=== PATIENT | female | born 1985 | race Two or more races ===

== ENCOUNTER 2021-01-02 11:39 | Emergency (ER) | payer OTHER, SELFPAY ==
--- NOTE | 2021-01-02 | ECG_ITS ---
Test Reason : CHEST PAIN Blood Pressure : / mmHG Vent. Rate : 065 BPM Atrial Rate : 065 BPM P-R Int : 162 ms QRS Dur : 076 ms QT Int : 390 ms P-R-T Axes : 067 072 037 degrees QTc Int : 405 ms Normal sinus rhythm with sinus arrhythmia Normal ECG When compared with ECG of 11-DEC-2015 12:53, No significant change was found Referred By: Generic ED Physician Electronically Signed By:Jaden Colunga
--- NOTE | ~2021-01-02 | XR_ITS ---
EXAMINATION: XR CHEST CLINICAL INFORMATION: Chest pain. Left-sided tenderness. COMPARISON: Previous chest x-ray most recent June 2017 TECHNIQUE: 2 views of the chest were obtained. FINDINGS: The cardiac and mediastinal contours are stable. The lungs are clear. There is no pleural effusion or pneumothorax. Bony structures are unremarkable. XR/XR chest 2V IMPRESSION: Unremarkable examination.
[2021-01-02 12:42] VITALS: BP 139/91; PULSE 61; RESP 16; TEMP 36.8; O2SAT 100; BMI 24.5
--- NOTE | 2021-01-02 13:42 | ED.CHESTPAIN ---
HPI - Chest Pain General Chief Complaint: Chest Pain Stated Complaint: chest pain Time Seen by Provider: 01/02/21 13:11 Source: patient Mode of arrival: ambulatory Limitations: no limitations History of Present Illness HPI narrative: 35 y/o female with history of pneumonia presents to the ED with 3 days of left sided chest soreness and tenderness along with VALIENTE and generalized weakness. She denies fever, chills, cough, SOB at rest, nausea, vomiting. She has some mild headache and body aches. She states the pain is on her left chest and worse with movement and palpation. She denies any injury or heavy lifting. Sweeping the floors at home made the pain worse. She denies any sick contact. She has no personal or family history of blood clots. Mom and dad both had PA's in the 70's. MD complaint: chest discomfort Onset (ago): day(s) (3) Timing of current episode: constant Prior episodes: Yes Onset: during exertion Pain location: left chest Pain radiation: other (left lateral chest under axilla) Severity: moderate Quality: aching Relieving factors: rest Exacerbating factors: palpation and movement Associated symptoms: dyspnea Treatment prior to arrival: none Related Data Previous Rx's Medication Instructions Recorded lidocaine [Lidoderm] 1 patch TOPICAL DAILY #15 ea 01/02/21 naproxen 500 mg PO BID PRN #20 tab 01/02/21 Allergies Allergy/AdvReac Type Severity Reaction Status Date / Time acetaminophen [Percocet] Allergy Unknown anaphylaxis, Verified 01/02/21 12:41 rash oxycodone [Percocet] Allergy Unknown anaphylaxis, Verified 01/02/21 12:41 rash Penicillins [PENICILLINS] Allergy Unknown SOB HIVES Verified 01/02/21 12:41 Review of Systems Review of Systems: Constitutional: No Fever, No Chills ENT/Mouth: No sore throat, No Rhinorrhea, No Swallowing Difficulty Eyes: No Eye Pain, No Swelling, No Redness Cardiovascular: + Chest Pain, + SOB, No Orthopnea, No Edema Respiratory: No Cough, No Sputum, No Wheezing,+ dyspnea Gastrointestinal: No Nausea, No Vomiting, No Diarrhea, No abdominal Pain Genitourinary: No Dysuria, No Urinary Frequency, No Hematuria Musculoskeletal: No joint pain, + Myalgias Skin: No Skin Lesions, No rash Neuro: No Weakness, No Numbness, No Dizziness, + Headache PMFSH Past Medical History Medical History Asthma Surgical History (Updated 10/01/20 @ 09:40 by ROCCO Alcala) History of section History of tubal ligation Family History Family History (Updated 10/01/20 @ 09:41 by ROCCO Alcala) Father CVD (cardiovascular disease) Depression Myocardial infarction Mother Myocardial infarction Depression Hypertension CVD (cardiovascular disease) Maternal Grandmother Cancer Brother In good health Son In good health Daughter In good health Social History Social History Smoking Status: Current every day smoker Use of substances other than those prescribed or required for medical reasons: No Advance Directives: Yes Advance Directives Information Provided: No Advance Directives on File: No Physical Exam Vital Signs: Vital Signs: Last Vital Signs Temp 98.2 F 01/02/21 12:42 Pulse 61 01/02/21 12:42 Resp 16 01/02/21 12:42 BP 139/91 H 01/02/21 12:42 Pulse Ox 100 01/02/21 12:42 Body Mass Index 24.5 Appearance: Alert. Oriented X3. No acute distress. Eyes: Pupils equal, round and reactive to light. ENT: Pharynx normal. Neck: Normal inspection. Neck supple. CVS: Normal heart rate and rhythm. Pulses normal. Left sided chest wall tenderness extending to under left axilla. Respiratory: No respiratory distress. Breath sounds normal. Abdomen: Soft and nontender. +BS x4 Skin: Skin warm and dry. Normal skin color. Normal skin turgor. No rashes. Extremities: No lower extremity edema. Negative Leslie's sign. Neuro: Oriented X 3. Non-focal. Course Course Course Narrative: 35 y/o female with no PMH presents with left sided chest discomfort and soreness. Tender on exam with normal vital signs and normal lung sounds. She has nother nonspecific symptoms include generalized weakness & fatigue and headache. Will get CXR to r/o PNA, EKG and Viral PCR. No known exposure to COVID that she is aware of. She is PERC negative, doubt PE. Reevaluation(s) Reevaluation #1: CXR negative. EKG normal. Reevaluation #2: COVID positive. Went to go inform the patient and she eloped. Called patient at 4:56 to discuss results and management. All questions were answered. MDM - Chest Pain Differential Diagnosis Differential diagnosis: Likely fracture of rib, pneumothorax, atypical chest pain, costochondritis and chest pain Medical Records Data Attestation: I reviewed the patient's medical records. Lab Data Labs: Lab Results 01/02/21 Range/Units 14:40 Coronavirus (PCR) POSITIVE A (Negative) Influenza Type A (PCR) NEGATIVE (Negative) Influenza Type B (PCR) NEGATIVE (Negative) RSV RNA Qual (PCR) NEGATIVE (Negative) ECG Data ECG #1: Attestation: I personally reviewed and interpreted this ECG as follows: ECG interpretation date: 01/02/21 ECG interpretation time: 11:51 Interpretation: normal sinus rhythm with sinus arrythmia, HR 65 bpm, normal [place] interval, normal QTc, no ST segment elevations or depressions. Discharge Plan Discharge Clinical Impression: Costalchondritis Patient Disposition: Elopement Instructions: Costochondritis (ED) Additional Instructions: Your EKG today was normal. Your chest x-ray was normal. It is likely that your pain is muscular in nature. Rest. No heavy lifting. Use ice and/or heat to the area several times per day. Take the prescribed medications as needed for pain. Follow up with your doctor this week. If you have worsening pain or new or concerning symptoms come back to the ER for further evaluation. Prescriptions: New lidocaine [Lidoderm] 5 % adhesive patch,medicated 1 patch topical DAILY Qty: 15 RF: 0 naproxen 500 mg tablet 500 mg PO BID PRN (Reason: pain) Qty: 20 RF: 0
[2021-01-02 16:13] LABS: Influenza A PCR NEGATIVE (Negative); Influenza B PCR NEGATIVE (Negative); Resp Syncy Virus RNA Qual PCR NEGATIVE (Negative); SARS COV2 PCR INHOUSE POSITIVE (Negative)
--- NOTE | 2021-01-02 17:26 | PC.NURSE ---
SPOKE WITH PTS DAUGHTER AARON, STATES SOMEONE WILL STOP at pts home about 8 pm
--- NOTE | 2021-01-02 17:37 | PC.NURSE ---
approx. 1630 eliana luke entered tx rm, room was empty, pa able to reach pt at home and inform her she is +covid and needs to quarantine
== END 2021-01-02 17:38 | disposition left against medical advice (07) ==
PROVIDERS: Physician Assistant; Emergency Provider Emergency Medicine; PCP Internal Medicine
DX: M94.0 Chondrocostal junction syndrome [Tietze] (principal); R07.9 Chest pain, unspecified; Z20.822 Contact with and (suspected) exposure to COVID-19
CPT/HCPCS: 0241U; 36415; 71046; 93005; 99283

== ENCOUNTER 2021-04-17 10:10 | Emergency (ER) | payer OTHER, SELFPAY ==
--- NOTE | ~2021-04-17 | XR_ITS ---
EXAMINATION: XR CHEST CLINICAL INFORMATION: Chest pain COMPARISON: Previous chest x-ray December 2020 TECHNIQUE: Frontal view of the chest was obtained. FINDINGS: No significant abnormality is noted involving the heart, lungs, mediastinum, bony thorax or soft tissues. XR/XR chest 1V IMPRESSION: Unremarkable examination.
[2021-04-17 10:14] VITALS: BP 138/70; PULSE 94; O2SAT 100
[2021-04-17 10:22] VITALS: BP 117/70; PULSE 79; RESP 20; TEMP 37.2; O2SAT 97; BMI 27.3
--- NOTE | 2021-04-17 10:47 | ECG_ITS ---
Test Reason : CHEST PAIN Blood Pressure : / mmHG Vent. Rate : 071 BPM Atrial Rate : 071 BPM P-R Int : 138 ms QRS Dur : 082 ms QT Int : 382 ms P-R-T Axes : 064 075 031 degrees QTc Int : 415 ms Normal sinus rhythm with sinus arrhythmia Normal ECG When compared with ECG of 02-JAN-2021 11:52, No significant change was found Referred By: Vicki Mathis Electronically Signed By:Jaden Colunga
[2021-04-17] MEDS: Benzonatate 100 MG CAPSULE PO (10:56)
[2021-04-17] MEDS: hydrOXYzine HCL 25 MG TABLET PO (10:56)
[2021-04-17 11:00] VITALS: BP 117/73; PULSE 73; RESP 16; O2SAT 99
[2021-04-17] MEDS: Albuterol Sulfate (0.083%) 2.5 MG/3 ML VIAL.NEB 5 MG INHALE (11:09)
[2021-04-17 11:13] VITALS: PULSE 95; O2SAT 97
[2021-04-17 11:14] LABS: MANUAL DIFF FLAG NO
[2021-04-17 11:17] LABS: Basophils Percent Auto 0.3 % (0-2); Eosinophils Percent Auto 0.4 % (0-4); Hematocrit 39.5 % (37-47); Hemoglobin 13.5 g/dl (12.0-16.0); Imm Gran Abs Auto 0.03 X10*3/uL (0.00-0.03); Imm Gran Pct Auto 0.3 % (0.0-0.4); Lymphocytes Absolute Auto 1.1 X10*3/uL (1.2-4.9); Lymphocytes Percent Auto 11.4 % (20-40); Mean Corpuscular HGB Conc 34.2 g/dl (31.0-35.0); Mean Corpuscular Hemoglobin 31.2 pg (27.0-33.0); Mean Corpuscular Volume 91.2 fL (80-98); Mean Platelet Volume 9.3 fL (9.4-12.3); Monocytes Absolute Auto 0.5 X10*3/uL (0.1-1.2); Monocytes Percent Auto 5.2 % (2-11); Neutrophils Absolute Auto 8.1 X10*3/uL (2.0-8.3); Neutrophils Percent Auto 82.4 % (45-73); Platelet Count 303 X10*3/uL (160-400); Red Blood Count 4.33 X10*6/uL (4.20-5.50); White Blood Count 9.8 X10*3/uL (4.8-10.8)
[2021-04-17 11:38] LABS: COVID-19 Test Negative (Negative); IDNOW Serial# 9DD0AD1C
[2021-04-17 11:40] LABS: Anion Gap 15 (12-20); Blood Urea Nitrogen 8 mg/dL (9-16); Calcium 9.3 mg/dL (8.4-10.2); Carbon Dioxide 17 mmol/L (22-29); Chloride 109 mmol/L (96-108); Creatinine Clr Calc Pharmacy 101.2; Estimated Glomerular Filt Rate > 60; Glucose Random 90 mg/dL (60-115); Potassium 3.6 mmol/L (3.3-5.1); Sodium 137 mmol/L (135-145)
[2021-04-17 11:43] LABS: Troponin-I High Sensitivity < 3.5 ng/L (<3.5-17.0)
--- NOTE | 2021-04-17 11:49 | ED.SOB ---
HPI - SOB/Dyspnea General Chief Complaint: Dyspnea Stated Complaint: CHEST PAIN,DIFF BREATHING X2DAYS ?PNEUMONIA Time Seen by Provider: 04/17/21 10:41 Source: patient History of Present Illness HPI Narrative: 35-year-old female with a past medical history of asthma, tubal ligation, , presenting to the ED complaining of productive cough, SOB, chest tightness, chills x2 days. Denies fever, sore throat, ear pain, recent travel, LE edema, history blood clots, abdominal pain, nausea/vomiting, COVID-19 exposure MD elicited complaint: shortness of breath and cough Related Data Previous Rx's Medication Instructions Recorded lidocaine [Lidoderm] 1 patch TOPICAL DAILY #15 ea 01/02/21 naproxen 500 mg PO BID PRN #20 tab 01/02/21 albuterol sulfate 2 puff INHALATION Q4-6H PRN #6.7 g 04/17/21 benzonatate [Tessalon Perles] 100 mg PO TID PRN #14 cap 04/17/21 fluticasone propionate [Flonase 2 spray INTRANASAL DAILY #16 g 04/17/21 Allergy Relief] ondansetron HCl [Zofran] 4 mg PO Q8H PRN #10 tab 04/17/21 Allergies Allergy/AdvReac Type Severity Reaction Status Date / Time acetaminophen [Percocet] Allergy Unknown anaphylaxis, Verified 01/02/21 12:41 rash oxycodone [Percocet] Allergy Unknown anaphylaxis, Verified 01/02/21 12:41 rash Penicillins [PENICILLINS] Allergy Unknown SOB HIVES Verified 01/02/21 12:41 Review of Systems Review of Systems: Constitutional: No Fever, + Chills, No Fatigue, No Malaise ENT/Mouth: No Ear Pain, No Nasal Congestion, No sore throat, No Rhinorrhea Eyes: No Eye Pain, No Discharge, No Vision Changes Cardiovascular: + Chest Pain, + SOB, No Dyspnea on Exertion, No Edema Respiratory: + Cough, + Sputum, No Wheezing, No Dyspnea Gastrointestinal: No Nausea, No Vomiting, No Diarrhea, No Abdominal pain Genitourinary: No Dysuria, No Hematuria, No Flank Pain Musculoskeletal: No joint pain, No Myalgias, No Joint Swelling Skin: No Skin Lesions, No rash Neuro: No Weakness, No Headache Yes all other systems are reviewed and are negative PMFSH Past Medical History Attestation statement: The following information was validated with the patient. Medical History Asthma Surgical History (Updated 10/01/20 @ 09:40 by ROCCO Alcala) History of section History of tubal ligation Family History Family History (Updated 10/01/20 @ 09:41 by ROCCO Alcala) Father CVD (cardiovascular disease) Depression Myocardial infarction Mother Myocardial infarction Depression Hypertension CVD (cardiovascular disease) Maternal Grandmother Cancer Brother In good health Son In good health Daughter In good health Social History Social History Advance Directives: Yes Advance Directives Information Provided: No Advance Directives on File: No Patient : No Physical Exam Vital Signs: Vital Signs: Last Vital Signs Temp 98.9 F 04/17/21 10:22 Pulse 95 04/17/21 11:13 Resp 16 04/17/21 11:00 BP 117/73 04/17/21 11:00 Pulse Ox 99 04/17/21 11:00 Body Mass Index 27.3 Const: General: cooperative, healthy appearing and no acute distress Orientation/consciousness: patient oriented x3 Limitations: no limitations HENMT: Head: Yes normal to inspection Ears: hearing grossly normal bilaterally General nose exam: Normal external nose present Face and sinus: Yes normal facial exam Mouth: Normal oral and palatal mucosa present Throat: Yes posterior oropharynx normal, Yes tonsils normal and Yes uvula midline Eyes: General: appearance normal, both eyes and all related structures EOM: EOMs intact bilaterally Neck: Neck: Yes normal visual inspection Resp: Effort & Inspection: normal respiratory effort Auscultation: clear to auscultation bilaterally, no rales, no rhonchi and no wheezes Cardio: Rate: regular rate Heart sounds: S1 normal heart sound present and S2 normal heart sound present GI: Inspection: Yes normal to inspection Palpation (GI): Soft to palpation, nontender, no guarding and not rigid Skin: Rashes: no rashes Wounds: no wounds Neuro: General: patient oriented x3 Gait exam (Neuro): Normal gait present Extrem: General: Yes normal to inspection and Yes no pedal edema Course Course Course Narrative: -labs unremarkable, troponin negative -COVID-19 negative XR chest 1V IMPRESSION: Unremarkable examination. >> results discussed with patient including worrisome signs and symptoms and return precautions, she verbalized understanding feel safe for discharge home to follow-up with PCP MDM - SOB/Dyspnea MDM Narrative Medical decision making narrative: 35-year-old female with a past medical history of asthma, tubal ligation, , presenting to the ED complaining of productive cough, SOB, chest tightness, chills x2 days. On exam VSS, NAD/well-appearing, lungs CTA, no pedal edema/no calf tenderness. Concern for viral syndrome/COVID-19 vs pneumonia. Rule out ACS. Low concern for PE/CHF Plan: EKG, labs, CXR, COVID-19 testing, albuterol neb, reassess Medical Records Attestation: I reviewed the patient's medical records. Lab Data Attestation: I reviewed the patient's lab results. Result diagrams: 04/17/21 11:07 04/17/21 11:07 Labs: Lab Results 04/17/21 04/17/21 04/17/21 Range/Units 10:59 11:07 11:07 WBC 9.8 (4.8-10.8) X10*3/uL RBC 4.33 (4.20-5.50) X10*6/uL Hgb 13.5 (12.0-16.0) g/dl Hct 39.5 (37-47) % MCV 91.2 (80-98) fL MCH 31.2 (27.0-33.0) pg MCHC 34.2 (31.0-35.0) g/dl RDW 13.0 (11.0-16.0) % Plt Count 303 (160-400) X10*3/uL MPV 9.3 L (9.4-12.3) fL Immature Gran % (Auto) 0.3 (0.0-0.4) % Neut % (Auto) 82.4 H (45-73) % Lymph % (Auto) 11.4 L (20-40) % Cooper % (Auto) 5.2 (2-11) % Eos % (Auto) 0.4 (0-4) % Baso % (Auto) 0.3 (0-2) % Lymph # (Auto) 1.1 L (1.2-4.9) X10*3/uL Cooper # (Auto) 0.5 (0.1-1.2) X10*3/uL Eos # (Auto) 0.0 (0.0-0.4) X10*3/uL Baso # (Auto) 0.0 (0.0-0.2) X10*3/uL Abs Immat Gran (auto) 0.03 (0.00-0.03) X10*3/uL Absolute Neuts (auto) 8.1 (2.0-8.3) X10*3/uL Absolute Nucleated RBC 0.000 (0.0-0.012) X10*3/uL Nucleated RBC % (auto) 0.0 (0.0-0.2) /100WBC Sodium 137 (135-145) mmol/L Potassium 3.6 (3.3-5.1) mmol/L Chloride 109 H (96-108) mmol/L Carbon Dioxide 17 L (22-29) mmol/L Anion Gap 15 (12-20) BUN 8 L (9-16) mg/dL Creatinine 0.66 (0.5-1.4) mg/dL Estim Creat Clear Calc 101.2 Estimated GFR > 60 Random Glucose 90 (60-115) mg/dL Calcium 9.3 (8.4-10.2) mg/dL Troponin I High Sens (<3.5-17.0) ng/L COVID-19 (YADIRA) Negative (Negative) COVID-19 Clin Com See Note 04/17/21 Range/Units 11:07 WBC (4.8-10.8) X10*3/uL RBC (4.20-5.50) X10*6/uL Hgb (12.0-16.0) g/dl Hct (37-47) % MCV (80-98) fL MCH (27.0-33.0) pg MCHC (31.0-35.0) g/dl RDW (11.0-16.0) % Plt Count (160-400) X10*3/uL MPV (9.4-12.3) fL Immature Gran % (Auto) (0.0-0.4) % Neut % (Auto) (45-73) % Lymph % (Auto) (20-40) % Cooper % (Auto) (2-11) % Eos % (Auto) (0-4) % Baso % (Auto) (0-2) % Lymph # (Auto) (1.2-4.9) X10*3/uL Cooper # (Auto) (0.1-1.2) X10*3/uL Eos # (Auto) (0.0-0.4) X10*3/uL Baso # (Auto) (0.0-0.2) X10*3/uL Abs Immat Gran (auto) (0.00-0.03) X10*3/uL Absolute Neuts (auto) (2.0-8.3) X10*3/uL Absolute Nucleated RBC (0.0-0.012) X10*3/uL Nucleated RBC % (auto) (0.0-0.2) /100WBC Sodium (135-145) mmol/L Potassium (3.3-5.1) mmol/L Chloride (96-108) mmol/L Carbon Dioxide (22-29) mmol/L Anion Gap (12-20) BUN (9-16) mg/dL Creatinine (0.5-1.4) mg/dL Estim Creat Clear Calc Estimated GFR Random Glucose (60-115) mg/dL Calcium (8.4-10.2) mg/dL Troponin I High Sens < 3.5 (<3.5-17.0) ng/L COVID-19 (YADIRA) (Negative) COVID-19 Clin Com ECG Data Attestation: I personally reviewed and interpreted this ECG as follows: ECG interpretation date: 04/17/21 ECG interpretation time: 11:04 Interpretation: EKG normal sinus rhythm with sinus arrhythmia at rate of 71. No STEMI/nonischemic Discharge Plan Discharge Clinical Impression: Acute viral syndrome Patient Disposition: Home, Self-Care Instructions: Viral Syndrome (ED) Additional Instructions: Your blood work was reassuring today in the emergency department Her x-ray was unremarkable You tested negative for COVID-19 You need to rest, stay hydrated, drink plenty of fluids including Gatorade, Powerade, Pedialyte, and water Tessalon Perles for cough, take as needed Flonase Allergy Relief is a nasal decongestion Zofran as an antinausea medication, take as needed In addition use albuterol inhaler for shortness of breath/wheezing If her symptoms persist or worsen, become unbearable, you have fever unresolved medication or constant worsening shortness breath or chest pain please return to the ED Prescriptions: New ondansetron HCl [Zofran] 4 mg tablet 4 mg PO Q8H PRN (Reason: nausea and vomiting) Qty: 10 RF: 0 albuterol sulfate 90 mcg/actuation HFA aerosol inhaler 2 puff inhalation Q4-6H PRN (Reason: shortness of breath or wheezing) Qty: 6.7 RF: 0 benzonatate [Tessalon Perles] 100 mg capsule 100 mg PO TID PRN (Reason: cough) Qty: 14 RF: 0 fluticasone propionate [Flonase Allergy Relief] 50 mcg/actuation spray,suspension 2 spray intranasal DAILY Qty: 16 RF: 0 No Action lidocaine [Lidoderm] 5 % adhesive patch,medicated 1 patch topical DAILY Qty: 15 RF: 0 naproxen 500 mg tablet 500 mg PO BID PRN (Reason: pain) Qty: 20 RF: 0 Referrals: Alessio Hickman MD [Primary Care Provider] - 2 days
[2021-04-17] MEDS: guaiFENesin 100 MG/5 ML LIQUID PO (12:22)
== END 2021-04-17 12:37 | disposition home or self-care (01) ==
PROVIDERS: Physician Assistant; Emergency Provider Emergency Medicine; PCP Internal Medicine
DX: B34.9 Viral infection, unspecified (principal); R05 Cough; R06.00 Dyspnea, unspecified; Z20.822 Contact with and (suspected) exposure to COVID-19; Z79.899 Other long term (current) drug therapy
CPT/HCPCS: 36415; 71045; 80048; 84484; 85025; 87635; 93005; 94640; 99284

== ENCOUNTER 2021-09-02 15:26 | Emergency (ER) | payer OTHER, SELFPAY ==
[2021-09-02 16:21] VITALS: BP 158/97; PULSE 66; RESP 17; TEMP 36.7; O2SAT 100; BMI 26.4
--- NOTE | 2021-09-02 16:45 | ED.GENADULT ---
HPI - General Adult General Chief complaint: General Medical Stated complaint: Cyst on breast Time Seen by Provider: 09/02/21 16:35 Source: patient Mode of arrival: ambulatory Limitations: no limitations History of Present Illness HPI narrative: 35-year-old female Presents to the ER for evaluation of a small cyst-like lesion under her right breast that has been present for several weeks. She states it is getting bigger and is tender. It is right where her bra line is and it is irritating. She tried to drain it at home but nothing came out. She denies any redness or warmth over the area. She tried calling her doctor in going to an urgent care clinic earlier today but there she was unable to be seen. She denies any fevers or chills. No history of cysts or abscess in the past. MD complaint: Cyst under right breast Onset (ago): week(s) Location: chest Radiation: non-radiation Severity: mild Pain Consistency: intermittent Relieving factors: none Exacerbating factors: other ( palpation) Associated symptoms: denies other symptoms Treatments prior to arrival: none Related Data Previous Rx's Medication Instructions Recorded lidocaine 5 % topical patch 1 patch TOPICAL DAILY #15 ea 01/02/21 (Lidoderm) naproxen 500 mg tablet 500 mg PO BID PRN #20 tab 01/02/21 albuterol sulfate 90 mcg/actuation 2 puff INHALATION Q4-6H PRN #6.7 g 04/17/21 aerosol inhaler benzonatate 100 mg capsule 100 mg PO TID PRN #14 cap 04/17/21 (Tessalon Perles) fluticasone propionate 50 2 spray INTRANASAL DAILY #16 g 04/17/21 mcg/actuation nasal spray,suspension (Flonase Allergy Relief) ondansetron HCl 4 mg tablet 4 mg PO Q8H PRN #10 tab 04/17/21 (Zofran) Allergies Allergy/AdvReac Type Severity Reaction Status Date / Time acetaminophen [Percocet] Allergy Severe anaphylaxis, Verified 09/02/21 16:21 rash oxycodone [Percocet] Allergy Severe anaphylaxis, Verified 09/02/21 16:21 rash Penicillins [PENICILLINS] Allergy Intermediate SOB HIVES Verified 09/02/21 16:21 Review of Systems Review of Systems: Constitutional: No Fever, No Chills Cardiovascular: No Chest Pain, No SOB Gastrointestinal: No Nausea, No Vomiting Musculoskeletal: No joint pain, + Myalgias Skin: + Skin Lesions, No rash Neuro: No Weakness, No Numbness Psych: + Anxiety/Panic, No Depression Heme/Lymph: No Bruising, No Lymphadenopathy PMFSH Past Medical History Medical History Asthma Surgical History History of section History of tubal ligation Family History Family History (Updated 10/01/20 @ 09:41 by Leann Ledezma Christie) Father CVD (cardiovascular disease) Depression Myocardial infarction Mother Myocardial infarction Depression Hypertension CVD (cardiovascular disease) Maternal Grandmother Cancer Brother In good health Son In good health Daughter In good health Social History Social History Advance Directives: No Advance Directives Information Provided: Yes Patient : No Physical Exam Vital Signs: Vital Signs: Last Vital Signs Temp 98.1 F 09/02/21 16:21 Pulse 66 09/02/21 16:21 Resp 17 09/02/21 16:21 BP 158/97 H 09/02/21 16:21 Pulse Ox 100 09/02/21 16:21 Body Mass Index 26.4 Appearance: Alert. Oriented X3. No acute distress. HEENT: normal inspection CVS: Normal heart rate and rhythm. Pulses normal. Respiratory: No respiratory distress. Skin: Skin warm and dry. Normal skin color. Normal skin turgor. Under right breast is a small circular raised 1 cm soft lesion consistent with a simple cyst. There is no fluctuance or induration. No erythema or warmth. Extremities: normal inspection, normal range of motion x4 Neuro: Oriented X 3. No motor deficit. No sensory deficit. Course Course Course Narrative: 35-year-old female presenting to the ER with a small 1 cm cystic lesion beneath her right breast. At this time there is no urgent need for incision and drainage, this lesion most likely needs excision by supervisor evaporator. Patient is agreeable with holding off on intervention today and she will call Dermatology office tomorrow for evaluation. Patient stable for discharge home. Discharge Plan Discharge Clinical Impression: Cyst of skin Patient Disposition: Home, Self-Care Instructions: Cyst (ED) Additional Instructions: Recommend following up with Dermatology if you would like the cyst to be excised and removed. If you develop signs or symptoms of infection including redness, increased pain, or drainage of pus, call your doctor or come back to the ER for further evaluation. Prescriptions: No Action ondansetron HCl [Zofran] 4 mg tablet 4 mg PO Q8H PRN (Reason: nausea and vomiting) Qty: 10 RF: 0 albuterol sulfate 90 mcg/actuation HFA aerosol inhaler 2 puff inhalation Q4-6H PRN (Reason: shortness of breath or wheezing) Qty: 6.7 RF: 0 benzonatate [Tessalon Perles] 100 mg capsule 100 mg PO TID PRN (Reason: cough) Qty: 14 RF: 0 fluticasone propionate [Flonase Allergy Relief] 50 mcg/actuation spray,suspension 2 spray intranasal DAILY Qty: 16 RF: 0 lidocaine [Lidoderm] 5 % adhesive patch,medicated 1 patch topical DAILY Qty: 15 RF: 0 naproxen 500 mg tablet 500 mg PO BID PRN (Reason: pain) Qty: 20 RF: 0 Referrals: Jessica Coker PA-C [Physician Mirror Specialist] - 2 days (cyst under right breast, would like excision) Interventions: ED Discharge Assessment Last Done: 09/02/21 17:02
== END 2021-09-02 17:02 | disposition home or self-care (01) ==
PROVIDERS: Emergency Provider Emergency Medicine; PCP Internal Medicine
DX: N60.01 Solitary cyst of right breast (principal); Z79.899 Other long term (current) drug therapy
CPT/HCPCS: 99283

== ENCOUNTER 2021-09-28 19:01 | Emergency (ER) | payer OTHER, SELFPAY | END 2021-09-28 22:55 | disposition left against medical advice (07) | PROVIDERS: Emergency Provider Emergency Medicine; PCP Internal Medicine | DX: R68.89 Other general symptoms and signs (principal) ==

== ENCOUNTER → 2021-10-25 10:27 | Outpatient (BNVA) | payer OTHER, SELFPAY | PROVIDERS: PCP Internal Medicine; Referring Provider Internal Medicine; Visit Provider Surgery | DX: N60.01 Solitary cyst of right breast (principal) | CPT/HCPCS: 99202 ==

== ENCOUNTER 2021-11-19 10:52 | Outpatient (REF) | payer OTHER, SELFPAY ==
[2021-11-19 11:03] VITALS: BP 132/83; PULSE 68; RESP 16; TEMP 36.2; O2SAT 97
[2021-11-19 11:04] VITALS: BMI 25.4
--- NOTE | 2021-11-21 07:59 | P.OP_ITS ---
Operative Note Operative Note Date of Service: 11/19/21 Narrative: Preoperative diagnosis: Epidermal inclusion cyst right chest wall Postoperative diagnosis: Same Procedure: Excision of epidermal inclusion cyst right chest wall Surgeon: Noel Walker MD Mission Support Specialist: None Anesthesia: Local Indications for procedure: 36-year-old female with enlarging epidermal inclusion cyst below the right breast measuring approximately 2 cm in diameter Operative findings: 2 cm epidermal inclusion cyst right chest wall Specimen: Epidermal inclusion cyst right chest wall Estimated blood loss: 2 mL Complications: None Procedure details: Patient was brought to the minor surgery suite and placed in a supine position. The site of surgery was confirmed by the patient in the right chest wall below the right breast. After assuring informed consent the skin around the cyst was prepped with Betadine and draped with sterile drapes. Local anesthesia consisting of 1% lidocaine with epinephrine was infiltrated circumferentially around the lesion. An elliptical incision oriented transversely was then created and carried down through subcutaneous tissue and around the cyst wall. Sharp dissection was used to excise the lesion from the subcutaneous tissue. The lesion was passed off the table and sent to pathology for further examination. After assuring adequate hemostasis, the dermis was reapproximated using interrupted 3-0 Polysorb sutures. Skin was then closed using interrupted 3-0 nylon sutures. Sterile dressings consisting of 2 x 2 gauze and Tegaderm were then applied. The patient tolerated the procedure well. She was discharged to home in stable condition.
== END 2021-11-19 10:53 | disposition home or self-care (01) ==
LOC: HO.MS 10:52
PROVIDERS: PCP Internal Medicine; Visit Provider Surgery
PROC: (CPT 11402; principal; 2021-11-19 11:15)
DX: L72.0 Epidermal cyst (principal); J45.909 Unspecified asthma, uncomplicated; F17.210 Nicotine dependence, cigarettes, uncomplicated
CPT/HCPCS: 11402; 88304

== ENCOUNTER → 2021-11-26 11:29 | Outpatient (BNVA) | payer OTHER, SELFPAY | PROVIDERS: PCP Internal Medicine; Referring Provider Internal Medicine; Visit Provider Surgery | DX: L72.0 Epidermal cyst (principal); F17.210 Nicotine dependence, cigarettes, uncomplicated; Z48.02 Encounter for removal of sutures | CPT/HCPCS: 99212 ==

== ENCOUNTER 2022-01-17 10:28 | Emergency (ER) | payer OTHER, SELFPAY ==
--- NOTE | ~2022-01-17 | XR_ITS ---
EXAMINATION: CHEST 2 VIEWS CLINICAL INFORMATION: cough, chest pain . COMPARISON: 04/17/2021. TECHNIQUE: PA and lateral views of the chest obtained. FINDINGS: The lungs are well expanded. No focal infiltrate, effusion, edema, or pneumothorax. Cardiac and mediastinal silhouettes are within normal limits for technique. No acute bony abnormality seen XR/XR chest 2V IMPRESSION: No evidence of acute disease
[2022-01-17 11:08] VITALS: BP 108/81; PULSE 80; RESP 20; TEMP 37.2; O2SAT 99; BMI 24.5
--- NOTE | 2022-01-17 11:34 | ED.URI ---
HPI - URI/Sore Throat General Chief Complaint: Upper Respiratory Symptoms Stated Complaint: chest pain , cough fever Time Seen by Provider: 01/17/22 11:33 Source: patient Mode of arrival: ambulatory Limitations: no limitations History of Present Illness HPI Narrative: 36-year-old female presents for coughing, fever, sore throat, body aches, and chest pain that started yesterday. Patient states she has a history of asthma but does not use an inhaler. States her chest pain has been constant since yesterday and is a sharp pain, that is worse with coughing Patient took Motrin at 07:00. Reports fever at home was 105 yesterday. Patient is vaccinated for COVID. No pleuritic pain, no vomiting or diarrhea, no shortness of breath. Related Data Previous Rx's Medication Instructions Recorded albuterol sulfate 90 mcg/actuation 2 puff INHALATION Q4-6H PRN #6.7 g 04/17/21 aerosol inhaler nicotine 14 mg/24 hr daily 1 patch TRANSDERMAL DAILY 7 Days 11/01/21 transdermal patch #7 ea nicotine 7 mg/24 hr daily 1 patch TRANSDERMAL Q24H 28 Days 11/01/21 transdermal patch #28 ea tizanidine 4 mg tablet 4 mg PO Q8H PRN 10 Days #30 tab 11/01/21 oseltamivir 75 mg capsule 75 mg PO BID 5 Days #10 cap 01/17/22 Allergies Allergy/AdvReac Type Severity Reaction Status Date / Time oxycodone [Percocet] Allergy Severe anaphylaxis, Verified 11/26/21 11:39 rash Penicillins [PENICILLINS] Allergy Intermediate SOB HIVES Verified 11/26/21 11:39 Review of Systems Constitutional: Constitutional: Reports body ache(s), Reports chills, Reports fatigue, Reports fever(s), Denies headache(s), Reports malaise and Denies weakness Eyes: Eyes: Denies blurry vision, Denies exophthalmos and Denies diplopia ENT: Denies vertigo, Denies dizziness, Denies otalgia, Denies headache(s), Denies post nasal drip, Denies sinus pain, Denies sinus pressure and Reports sore throat Cardiovascular: Cardiovascular: Reports chest pain, Denies syncope, Denies leg edema, Denies lightheadedness, Denies Loss of Consciousness, Denies palpitations and Denies dyspnea Respiratory: Respiratory: Denies chest congestion, Reports cough, Denies pain on inspiration, Reports pain with cough and Denies dyspnea Gastrointestinal: Gastrointestinal: Denies abdominal pain, Denies hematochezia, Denies constipation, Denies diarrhea, Denies nausea and Denies vomiting Musculoskeletal: Musculoskeletal: Reports myalgias Neurologic: Denies confusion, Denies vertigo, Denies dizziness, Denies syncope, Denies headache(s) and Denies weakness Psychiatric: Psychiatric: Denies anxiety, Denies confusion and Denies depression Endocrine: Endocrine: Reports fatigue and Denies palpitations PMFSH Past Medical History Medical History Anxiety Asthma Irritable bowel syndrome (IBS) Smoker Surgical History History of section History of tubal ligation Family History Family History Father CVD (cardiovascular disease) Depression Myocardial infarction Mother Myocardial infarction Depression Hypertension CVD (cardiovascular disease) Maternal Grandmother Lung cancer Brother In good health Son In good health Daughter In good health Social History Social History Housing: Apartment Alcohol intake: current Alcohol intake frequency: holidays/special occasions only Patient Tobacco Use Status: Current everyday Tobacco user Cigarettes Per Day: 8 Second Hand Smoke Exposure: Yes Advance Directives: No Advance Directives Information Provided: No Patient : No service: No Current occupational status: employed and student Physical Exam Vital Signs: Vital Signs: Last Vital Signs Temp 98.9 F 01/17/22 11:08 Pulse 87 01/17/22 12:09 Resp 20 01/17/22 12:09 BP 108/81 01/17/22 11:08 Pulse Ox 99 01/17/22 11:08 BMI result Body Mass Index 24.5 Const: General: alert, awake and acute distress mild (feels ill); No confusion Nutritional Appearance: well nourished Orientation/consciousness: patient oriented x3 and No confusion Limitations: no limitations HEENT: Head: Yes normal to inspection, Yes normocephalic and Yes atraumatic Ears: hearing grossly normal bilaterally, external ears normal, TM's normal bilaterally and EAC's normal General nose exam: Normal external nose present Face and sinus: Yes normal facial exam and Yes sinuses nontender Mouth: Normal oral and palatal mucosa present Throat: Yes posterior oropharynx normal Eyes: Conjunctivae: conjunctivae normal Pupils: Equal, round and reactive pupils present EOM: EOMs intact bilaterally Neck: Neck: Yes full ROM, Yes no lymphadenopathy and Yes supple Resp: Effort & Inspection: normal respiratory effort and able to speak in complete sentences Auscultation: no crackles, no rales, no rhonchi, no wheezes and diminished lung sounds (mildly) Cardio: Rate: regular rate Rhythm: regular rhythm Heart sounds: S1 normal heart sound present and S2 normal heart sound present GI: Inspection: Yes normal to inspection Palpation (GI): Soft to palpation, nontender, no guarding and not rigid Percussion: Yes normal to percussion Auscultation: normal bowel sounds Skin: General skin exam: no rashes or lesions noted Neuro: General: patient oriented x3 and No confusion Cranial nerves: Yes Equal, round and reactive pupils present Extrem: General: Yes normal to inspection and Yes full ROM Psych: Appearance: grossly normal Affect: normal affect Attitude: cooperative Thought process: Normal thought process present Course Course Course Narrative: 36-year-old female presents for upper respiratory symptoms of cough, fever, sore throat, body aches, and also chest pain that started yesterday. On exam, patient is moaning with her body aches, she is actively coughing, and lungs are mildly diminished. Chest x-ray is normal, labs are normal, troponin is negative, EKG shows no ischemia. Gave Tylenol and albuterol inhaler. Will prescribe Tamiflu, counseled patient that she will continue to have flu-like symptoms and to rest, drink plenty of fluids, alternate Tylenol and ibuprofen Wells score for pulmonary embolism is zero All patient's questions were answered, patient verbalized agreement understanding of the plan MDM - URI/Sore Throat Lab Data Result diagrams: 01/17/22 12:00 01/17/22 12:00 Labs: Lab Results 01/17/22 01/17/22 01/17/22 Range/Units 11:30 11:30 12:00 WBC 7.5 (4.8-10.8) X10*3/uL RBC 4.13 L (4.20-5.50) X10*6/uL Hgb 12.8 (12.0-16.0) g/dl Hct 37.4 (37.0-47.0) % MCV 90.6 (80.0-98.0) fL MCH 31.0 (27.0-33.0) pg MCHC 34.2 (31.0-35.0) g/dl RDW 12.9 (11.0-16.0) % Plt Count 287 (160-400) X10*3/uL MPV 9.1 L (9.4-12.3) fL Immature Gran % (Auto) 0.3 (0.0-0.4) % Neut % (Auto) 80.4 H (45-73) % Lymph % (Auto) 11.9 L (20-40) % [place] % (Auto) 6.5 (2-11) % Eos % (Auto) 0.5 (0-4) % Baso % (Auto) 0.4 (0-2) % Lymph # (Auto) 0.9 L (1.2-4.9) X10*3/uL [place] # (Auto) 0.5 (0.1-1.2) X10*3/uL Eos # (Auto) 0.0 (0.0-0.4) X10*3/uL Baso # (Auto) 0.0 (0.0-0.2) X10*3/uL Abs Immat Gran (auto) 0.02 (0.00-0.03) X10*3/uL Absolute Neuts (auto) 6.1 (2.0-8.3) x10*3/uL Absolute Nucleated RBC 0.000 (0.0-0.012) X10*3/uL Nucleated RBC % (auto) 0.0 (0.0-0.2) /100WBC Sodium (135-145) mmol/L Potassium (3.3-5.1) mmol/L Chloride (96-108) mmol/L Carbon Dioxide (22-29) mmol/L Anion Gap (12-20) BUN (9-16) mg/dL Creatinine (0.5-1.4) mg/dL Estim Creat Clear Calc Estimated GFR Random Glucose (60-115) mg/dL Calcium (8.4-10.2) mg/dL Total Bilirubin (0.0-1.0) mg/dL AST (5-31) U/L ALT (0-31) U/L Alkaline Phosphatase (39-117) U/L Troponin I High Sens (<3.5-17.0) ng/L Total Protein (6.5-8.0) g/dL Albumin (3.5-5.0) g/dL COVID-19 ([facility]) Negative (Negative) COVID-19 Clin Com See Note Influenza Type A ([facility]) Positive A (Negative) Influenza Type B ([facility]) Negative (Negative) Influenza A & B Note See Note 01/17/22 01/17/22 Range/Units 12:00 12:00 WBC (4.8-10.8) X10*3/uL RBC (4.20-5.50) X10*6/uL Hgb (12.0-16.0) g/dl Hct (37.0-47.0) % MCV (80.0-98.0) fL MCH (27.0-33.0) pg MCHC (31.0-35.0) g/dl RDW (11.0-16.0) % Plt Count (160-400) X10*3/uL MPV (9.4-12.3) fL Immature Gran % (Auto) (0.0-0.4) % Neut % (Auto) (45-73) % Lymph % (Auto) (20-40) % [place] % (Auto) (2-11) % Eos % (Auto) (0-4) % Baso % (Auto) (0-2) % Lymph # (Auto) (1.2-4.9) X10*3/uL [place] # (Auto) (0.1-1.2) X10*3/uL Eos # (Auto) (0.0-0.4) X10*3/uL Baso # (Auto) (0.0-0.2) X10*3/uL Abs Immat Gran (auto) (0.00-0.03) X10*3/uL Absolute Neuts (auto) (2.0-8.3) x10*3/uL Absolute Nucleated RBC (0.0-0.012) X10*3/uL Nucleated RBC % (auto) (0.0-0.2) /100WBC Sodium 137 (135-145) mmol/L Potassium 3.7 (3.3-5.1) mmol/L Chloride 108 (96-108) mmol/L Carbon Dioxide 20 L (22-29) mmol/L Anion Gap 13 (12-20) BUN 9 (9-16) mg/dL Creatinine 0.65 (0.5-1.4) mg/dL Estim Creat Clear Calc 96.8 Estimated GFR > 60 Random Glucose 90 (60-115) mg/dL Calcium 9.2 (8.4-10.2) mg/dL Total Bilirubin 0.5 (0.0-1.0) mg/dL AST 17 (5-31) U/L ALT 20 (0-31) U/L Alkaline Phosphatase 70 (39-117) U/L Troponin I High Sens < 3.5 (<3.5-17.0) ng/L Total Protein 6.9 (6.5-8.0) g/dL Albumin 4.2 (3.5-5.0) g/dL COVID-19 ([facility]) (Negative) COVID-19 Clin Com Influenza Type A ([facility]) (Negative) Influenza Type B ([facility]) (Negative) Influenza A & B Note ECG Data Interpretation: Sinus at a rate of 66, DC interval 136, QTC is normal, normal axis, nonspecific T-wave abnormality. Discharge Plan Discharge Clinical Impression: Influenza A Patient Disposition: Home, Self-Care Instructions: Influenza (ED) Additional Instructions: Your chest x-ray, EKG, and labs were normal today. You have influenza A. Please use the albuterol inhaler you are given, 2 puffs every 4 hours while you are awake. Please alternate Motrin and Tylenol, this can work well for pain as I have detailed below: Please alternate Tylenol and ibuprofen for pain. Take 1 or the other every 4 hours. For example, at midnight take 1000 mg of Tylenol, then at 4:00 a.m. take 800 mg ibuprofen, at 8:00 a.m. take 1000 mg of Tylenol, at noon take 800 mg of ibuprofen, at 4:00 p.m. take 1000 mg of Tylenol, at 8:00 p.m. take 800 mg of ibuprofen. Do not exceed 3000 mg of Tylenol in 24 hours. This method is proven to be as effective as an opioid for pain control. Please take the oseltamivir for flu starting today. Know that you will still have the flu, he will still have body aches and cough and fevers for few days. Please return to emergency room if you have worsening chest pain, shortness of breath, or any other new or concerning symptoms. Prescriptions: New oseltamivir 75 mg capsule 75 mg PO BID 5 Days Qty: 10 0RF No Action albuterol sulfate 90 mcg/actuation HFA aerosol inhaler 2 puff inhalation Q4-6H PRN (Reason: shortness of breath or wheezing) Qty: 6.7 0RF nicotine 7 mg/24 hr patch 24 hour 1 patch transdermal Q24H 28 Days Qty: 28 5RF nicotine 14 mg/24 hr patch 24 hour 1 patch transdermal DAILY 7 Days Qty: 7 0RF tizanidine 4 mg tablet 4 mg PO Q8H PRN (Reason: neck pain) 10 Days Qty: 30 1RF Interventions: ED Discharge Assessment Last Done: 01/17/22 12:59 Discharge Date/Time: 01/17/22 13:00
--- NOTE | 2022-01-17 11:52 | ECG_ITS ---
Test Reason : chest pain Blood Pressure : / mmHG Vent. Rate : 066 BPM Atrial Rate : 066 BPM P-R Int : 136 ms QRS Dur : 078 ms QT Int : 392 ms P-R-T Axes : 054 070 020 degrees QTc Int : 410 ms Normal sinus rhythm with sinus arrhythmia Normal ECG When compared with ECG of 17-APR-2021 11:04, Nonspecific T wave abnormality now evident in Anterior leads Referred By: Jessica Hogan Electronically Signed By:Jaden Colunga
[2022-01-17 12:04] LABS: MANUAL DIFF FLAG NO
[2022-01-17 12:05] LABS: COVID-19 Test Negative (Negative); IDNOW Serial# 55D5AD1C
[2022-01-17 12:06] LABS: Influenza A Positive (Negative); Influenza B2 Negative (Negative)
[2022-01-17 12:06] LABS: Basophils Percent Auto 0.4 % (0-2); Eosinophils Percent Auto 0.5 % (0-4); Hematocrit 37.4 % (37.0-47.0); Hemoglobin 12.8 g/dl (12.0-16.0); Imm Gran Abs Auto 0.02 X10*3/uL (0.00-0.03); Imm Gran Pct Auto 0.3 % (0.0-0.4); Lymphocytes Absolute Auto 0.9 X10*3/uL (1.2-4.9); Lymphocytes Percent Auto 11.9 % (20-40); Mean Corpuscular HGB Conc 34.2 g/dl (31.0-35.0); Mean Corpuscular Volume 90.6 fL (80.0-98.0); Mean Platelet Volume 9.1 fL (9.4-12.3); Monocytes Absolute Auto 0.5 X10*3/uL (0.1-1.2); Monocytes Percent Auto 6.5 % (2-11); Neutrophils Absolute Auto 6.1 x10*3/uL (2.0-8.3); Neutrophils Percent Auto 80.4 % (45-73); Platelet Count 287 X10*3/uL (160-400); Red Blood Count 4.13 X10*6/uL (4.20-5.50); Red Cell Distribution Width 12.9 % (11.0-16.0); White Blood Count 7.5 X10*3/uL (4.8-10.8)
[2022-01-17] MEDS: Albuterol Sulfate 90 MCG 8 GM INHALER 2 PUFF INHALE (12:08)
[2022-01-17 12:09] VITALS: PULSE 87; RESP 20; O2SAT 99
[2022-01-17] MEDS: Acetaminophen 325 MG TABLET 975 MG PO (12:17)
[2022-01-17 12:23] LABS: Alanine Aminotransferase 20 U/L (0-31); Albumin Level 4.2 g/dL (3.5-5.0); Alkaline Phosphatase 70 U/L (39-117); Anion Gap 13 (12-20); Aspartate Amino Transferase 17 U/L (5-31); Bilirubin Total 0.5 mg/dL (0.0-1.0); Blood Urea Nitrogen 9 mg/dL (9-16); Calcium 9.2 mg/dL (8.4-10.2); Carbon Dioxide 20 mmol/L (22-29); Chloride 108 mmol/L (96-108); Creatinine Clr Calc Pharmacy 96.8; Estimated Glomerular Filt Rate > 60; Glucose Random 90 mg/dL (60-115); Potassium 3.7 mmol/L (3.3-5.1); Sodium 137 mmol/L (135-145); Total Protein 6.9 g/dL (6.5-8.0)
[2022-01-17 12:27] LABS: Troponin-I High Sensitivity < 3.5 ng/L (<3.5-17.0)
== END 2022-01-17 13:00 | disposition home or self-care (01) ==
PROVIDERS: Physician Assistant; Emergency Provider Emergency Medicine; PCP Internal Medicine
DX: J10.1 Influenza due to other identified influenza virus with other respiratory manifestations (principal); R07.89 Other chest pain; R05.9 Cough, unspecified; R50.9 Fever, unspecified; M79.10 Myalgia, unspecified site; Z20.822 Contact with and (suspected) exposure to COVID-19; Z79.899 Other long term (current) drug therapy; F17.210 Nicotine dependence, cigarettes, uncomplicated; Z71.6 Tobacco abuse counseling
CPT/HCPCS: 36415; 71046; 80053; 84484; 85025; 87502; 87635; 93005; 94640; 99284

== ENCOUNTER 2022-06-14 14:05 | Emergency (ER) | payer OTHER, SELFPAY ==
--- NOTE | ~2022-06-14 | XR_ITS ---
EXAMINATION: XR CHEST CLINICAL INFORMATION: Shortness of breath. Cough. COMPARISON: January 17, 2022. TECHNIQUE: 2 views of the chest were obtained. FINDINGS: No significant abnormality is noted involving the heart, lungs, mediastinum, bony thorax or soft tissues. XR/XR chest 2V IMPRESSION: Unremarkable examination.
[2022-06-14 14:08] VITALS: BP 143/94; PULSE 71; RESP 14; TEMP 36.8; O2SAT 97; BMI 28.3
[2022-06-14 14:45] LABS: COVID-19 Test Negative (Negative); IDNOW Serial# 16C4AD1C
--- NOTE | 2022-06-14 17:35 | ED.URI ---
HPI - URI/Sore Throat General Chief Complaint: Upper Respiratory Symptoms Stated Complaint: chest pain/SOB/back pain Time Seen by Provider: 06/14/22 17:20 Source: patient Mode of arrival: ambulatory Limitations: no limitations History of Present Illness HPI Narrative: 36-year-old female with a history of asthma presents with 3 days of nasal congestion, productive cough, chest discomfort with coughing. No fevers or chills. No shortness of breath, leg swelling or leg pain. No vomiting, diarrhea, abdominal pain, no skin rash, no headache. Several kids at home are sick with similar symptoms. Patient using albuterol w/ continued symptoms. Related Data Previous Rx's Medication Instructions Recorded albuterol sulfate 90 mcg/actuation 2 puff inhalation Q4-6H PRN 04/17/21 aerosol inhaler shortness of breath or wheezing #6.7 grams tizanidine 4 mg tablet 4 mg PO Q8H PRN neck pain 10 days 11/01/21 #30 tabs oseltamivir 75 mg capsule 75 mg PO BID 5 days #10 caps 01/17/22 azithromycin 250 mg tablet See Rx Instructions PO .COMPLEX #6 02/13/22 tabs nicotine 14 mg/24 hr daily 1 patch transdermal DAILY 7 days 02/13/22 transdermal patch #7 ea nicotine 7 mg/24 hr daily 1 patch transdermal Q24H 28 days 02/13/22 transdermal patch #28 ea prednisone 10 mg tablet 10 mg PO DAILY 9 days #18 tabs 02/13/22 azithromycin 250 mg tablet See Rx Instructions PO .COMPLEX #6 06/14/22 tabs benzonatate 200 mg capsule 200 mg PO TID PRN cough #30 caps 06/14/22 prednisone 20 mg tablet 40 mg PO DAILY #10 tabs 06/14/22 Allergies Allergy/AdvReac Type Severity Reaction Status Date / Time oxycodone [Percocet] Allergy Severe anaphylaxis, Verified 02/13/22 09:01 rash Penicillins [PENICILLINS] Allergy Intermediate SOB HIVES Verified 02/13/22 09:01 Review of Systems Review of Systems: Yes all other systems are reviewed and are negative Constitutional: Constitutional: Reports no additional constitutional complaints, Denies body ache(s), Denies chills, Denies fever(s), Denies headache(s) and Denies weakness Eyes: Eyes: Reports no additional eye complaints and Denies change in vision ENT: Reports system reviewed and no additional complaints, except as documented, Denies dizziness, Denies headache(s), Reports nasal congestion, Denies nasal discharge and Denies neck pain Cardiovascular: Cardiovascular: Reports no additional cardiovascular complaints, Reports chest pain, Denies leg edema and Denies dyspnea Respiratory: Respiratory: Reports no additional respiratory complaints, Reports cough and Denies dyspnea Gastrointestinal: Gastrointestinal: Reports no additional gastrointestinal complaints, Denies abdominal pain, Denies diarrhea, Denies nausea and Denies vomiting Genitourinary: Genitourinary: Reports no additional female genitourinary complaints and Denies urinary incontinence Musculoskeletal: Musculoskeletal: Reports no additional musculoskeletal complaints, Denies back pain, Denies arthralgias, Denies joint swelling, Denies neck pain, Denies numbness and Denies tingling Integumentary/Breasts: Skin/Breast: Reports system reviewed and no additional complaints, except as docu and Denies rash Neurologic: Reports system reviewed and no additional complaints, except as documented, Denies Abnormal speech present, Denies dizziness, Denies headache(s), Denies numbness, Denies tingling and Denies weakness PMF Past Medical History Attestation statement: The following information was validated with the patient. Source: old records reviewed and nursing notes reviewed Medical History Anxiety Asthma Irritable bowel syndrome (IBS) Smoker Surgical History History of section History of tubal ligation Family History Family History Father CVD (cardiovascular disease) Depression Myocardial infarction Mother Myocardial infarction Depression Hypertension CVD (cardiovascular disease) Maternal Grandmother Lung cancer Brother In good health Son In good health Daughter In good health Social History Social History Housing: Apartment Alcohol intake: current Alcohol intake frequency: holidays/special occasions only Patient Tobacco Use Status: Current everyday Tobacco user Cigarettes Per Day: 5 Second Hand Smoke Exposure: Yes Advance Directives: No Advance Directives Information Provided: No service: No Current occupational status: employed and student Cognitive needs: No Hearing needs: No Vision needs: No Physical Exam Vital Signs: Vital Signs: Last Vital Signs Temp 98.3 F 06/14/22 14:08 Pulse 71 06/14/22 14:08 Resp 14 06/14/22 14:08 BP 143/94 H 06/14/22 14:08 Pulse Ox 97 06/14/22 14:08 O2 Del Method 06/14/22 14:08 BMI result Body Mass Index 28.3 Const: General: cooperative, healthy appearing, comfortable and no acute distress Orientation/consciousness: patient oriented x3 Limitations: no limitations HEENT: Head: Yes normal to inspection Ears: hearing grossly normal bilaterally and TM's normal bilaterally General nose exam: Normal external nose present Face and sinus: Yes normal facial exam Mouth: Normal oral and palatal mucosa present Throat: Yes posterior oropharynx normal, Yes tonsils normal and Yes uvula midline Eyes: General: appearance normal, both eyes and all related structures Pupils: Equal, round and reactive pupils present Neck: Neck: Yes normal visual inspection, Yes full ROM and Yes no lymphadenopathy Chest: Chest palpation & inspection: normal inspection of the chest Resp: Effort & Inspection: normal respiratory effort Auscultation: clear to auscultation bilaterally Cardio: Rate: regular rate Rhythm: regular rhythm Peripheral pulses: Peripheral pulses 2+ throughout GI: Inspection: Yes normal to inspection Palpation (GI): Soft to palpation and nontender Auscultation: normal bowel sounds Back/Spine/Pelvis: Thoracic/Lumbar Spine: thoracic and lumbar spine normal to inspection Skin: General skin exam: no rashes or lesions noted Neuro: General: patient oriented x3, no focal motor deficits and normal sensation to monofilament Cranial nerves: Yes Equal, round and reactive pupils present Cognition (Neuro): normal cognition Speech: No Abnormal speech present Gait exam (Neuro): Normal gait present Motor exam (neuro): 5/5 motor strength present throughout Extrem: General: Yes normal to inspection Course Course Course Narrative: Covid screen is negative. Chest x-ray shows no acute finding. Likely bronchitis. Bronchitis likely triggering asthma exacerbation. Patient treated with antibiotics, prednisone. Reviewed worrisome signs symptoms of when to return to the emergency room. Comfortable discharge home. MDM - URI/Sore Throat MDM Narrative Medical decision making narrative: 28-year-old female with a history of asthma here with several days of flu-like symptoms including chest discomfort with coughing and productive cough with yellow sputum patient also having asthma symptoms unrelieved with albuterol at home. Vitals are stable. Lungs are clear. No hypoxia or tachypnea. Patient to have rapid COVID screen, chest x-ray Medical Records Attestation: I reviewed the patient's medical records. Lab Data Attestation: I reviewed the patient's lab results. Labs: Lab Results 06/14/22 Range/Units 14:13 COVID-19 ([facility]) Negative (Negative) COVID-19 Clin Com See Note Imaging Data Chest x-ray: Attestation: I personally reviewed and interpreted this imaging study as follows: Radiologist's impression: Launch?Image [address] [id number] XRay Report Signed Patient: Sneha Martines MR#: [id number] : 1985 Acct:[id number] Age/Sex: 36 / F ADM Date: 06/14/22 Loc: HO.ED Attending Dr: Ordering Physician: Generic ED Physician Date of Service: 06/14/22 Procedure(s): XR chest 2V Accession Number(s): [id number] cc: Generic ED Physician~ EXAMINATION: XR CHEST CLINICAL INFORMATION: Shortness of breath. Cough. COMPARISON: January 17, 2022. TECHNIQUE: 2 views of the chest were obtained. FINDINGS: No significant abnormality is noted involving the heart, lungs, mediastinum, bony thorax or soft tissues. XR/XR chest 2V IMPRESSION: Unremarkable examination. Discharge Plan Discharge Clinical Impression: Bronchitis, Asthma Patient Disposition: Home, Self-Care Instructions: Asthma (ED), Acute Bronchitis (ED) Additional Instructions: Covid test is negative Chest xray shows no signs of infection Increase fluids, rest Motrin or Tylenol for pain or fever Continue home albuterol as needed Prescriptions: New azithromycin 250 mg tablet See Rx Instructions .ROUTE .COMPLEX Qty: 6 0RF Rx Instructions: For 250 mg dose pack: take 500 mg today (day 1), then 250 mg for 4 days (days 2-5) benzonatate 200 mg capsule 200 mg PO TID PRN (Reason: cough) Qty: 30 0RF prednisone 20 mg tablet 40 mg PO DAILY Qty: 10 0RF No Action albuterol sulfate 90 mcg/actuation HFA aerosol inhaler 2 puff inhalation Q4-6H PRN (Reason: shortness of breath or wheezing) Qty: 6.7 0RF oseltamivir 75 mg capsule 75 mg PO BID 5 Days Qty: 10 0RF tizanidine 4 mg tablet 4 mg PO Q8H PRN (Reason: neck pain) 10 Days Qty: 30 1RF prednisone 10 mg tablet 10 mg PO DAILY 9 Days Qty: 18 0RF Rx Instructions: Take 3 tablets x3 days, 2 tablets x3 days, 1 tablet x3 days azithromycin 250 mg tablet See Rx Instructions PO .COMPLEX Qty: 6 0RF Rx Instructions: For 250 mg dose pack: take 500 mg today (day 1), then 250 mg for 4 days (days 2-5) PO nicotine 7 mg/24 hr patch 24 hour 1 patch transdermal Q24H 28 Days Qty: 28 0RF nicotine 14 mg/24 hr patch 24 hour 1 patch transdermal DAILY 7 Days Qty: 7 0RF Referrals: Physician,Unknown J [Primary Care Provider] -
== END 2022-06-14 17:47 | disposition home or self-care (01) ==
PROVIDERS: Emergency Provider Internal Medicine
DX: J45.909 Unspecified asthma, uncomplicated (principal); Z20.822 Contact with and (suspected) exposure to COVID-19; F17.210 Nicotine dependence, cigarettes, uncomplicated; Z79.899 Other long term (current) drug therapy
CPT/HCPCS: 71046; 87635; 99282; 99283

== ENCOUNTER 2022-07-18 13:05 | Emergency (ER) | payer OTHER, SELFPAY ==
--- NOTE | ~2022-07-18 | XR_ITS ---
EXAMINATION: XR CHEST CLINICAL INFORMATION: Cough. COMPARISON: 06/14/2022 chest radiographs. TECHNIQUE: Frontal view of the chest was obtained. FINDINGS: No significant abnormality is noted involving the heart, lungs, mediastinum, bony thorax or soft tissues. XR/XR chest 1V IMPRESSION: No acute cardiopulmonary process.
[2022-07-18 14:39] VITALS: BP 120/86; PULSE 66; RESP 18; TEMP 36.7; O2SAT 94; BMI 29.2
[2022-07-18 15:05] LABS: COVID-19 Test Negative (Negative); IDNOW Serial# 9DB6401D
--- NOTE | 2022-07-18 15:52 | ED_ITS ---
HPI - General Adult General Chief complaint: Upper Respiratory Symptoms Stated complaint: cough,SOB Time Seen by Provider: 07/18/22 15:50 Source: patient Mode of arrival: ambulatory Limitations: no limitations History of Present Illness HPI narrative: Patient is a 36 year old assigned female at with a history of asthma presenting to the emergency department today with a cough. Patient states that her son recently tested positive for COVID-19 and RSV and now she is having a cough. Patient denies any dizziness, lightheadedness, abdominal pain, nausea, vomiting, fever, chills, blurry vision, double vision, loss of vision, chest pain, difficulty breathing, shortness of breath, back pain, night sweats, pain with urination, increased urinary frequency, increased urinary urgency, blood in her urine or stool, syncope or a near syncopal episode, recent trauma or falls, bowel incontinence, bladder incontinence, bowel retention, bladder retention, or any other complaints at this time. Onset (ago): day(s) Severity: mild Severity scale (1-10): 3 Relieving factors: none Exacerbating factors: none Associated symptoms: cough Treatments prior to arrival: none Related Data Previous Rx's Medication Instructions Recorded albuterol sulfate 90 mcg/actuation 2 puff inhalation Q4-6H PRN 04/17/21 aerosol inhaler shortness of breath or wheezing #6.7 grams tizanidine 4 mg tablet 4 mg PO Q8H PRN neck pain 10 days 11/01/21 #30 tabs oseltamivir 75 mg capsule 75 mg PO BID 5 days #10 caps 01/17/22 azithromycin 250 mg tablet See Rx Instructions PO .COMPLEX #6 02/13/22 tabs nicotine 14 mg/24 hr daily 1 patch transdermal DAILY 7 days 02/13/22 transdermal patch #7 ea nicotine 7 mg/24 hr daily 1 patch transdermal Q24H 28 days 02/13/22 transdermal patch #28 ea prednisone 10 mg tablet 10 mg PO DAILY 9 days #18 tabs 02/13/22 azithromycin 250 mg tablet See Rx Instructions PO .COMPLEX #6 06/14/22 tabs benzonatate 200 mg capsule 200 mg PO TID PRN cough #30 caps 06/14/22 prednisone 20 mg tablet 40 mg PO DAILY #10 tabs 06/14/22 Allergies Allergy/AdvReac Type Severity Reaction Status Date / Time oxycodone [Percocet] Allergy Severe anaphylaxis, Verified 07/18/22 14:39 rash Penicillins [PENICILLINS] Allergy Intermediate SOB HIVES Unverified 07/18/22 14:39 Review of Systems Constitutional: Constitutional: Reports no additional constitutional complaints, Denies chills, Denies fever(s) and Denies night sweats Eyes: Eyes: Reports no additional eye complaints, Denies blurry vision, Denies change in vision, Denies diplopia, Denies eye discharge, Denies loss of vision and Denies eye pain ENT: Denies dizziness Cardiovascular: Cardiovascular: Reports no additional cardiovascular complaints, Denies chest pain, Denies lightheadedness, Denies Loss of Consciousness and Denies dyspnea Respiratory: Respiratory: Reports no additional respiratory complaints, Reports cough and Denies dyspnea Gastrointestinal: Gastrointestinal: Reports no additional gastrointestinal complaints, Denies abdominal pain, Denies melena, Denies hematochezia, Denies change in bowel habits and Denies change in stool character Genitourinary: Genitourinary: Denies hematuria, Denies urinary frequency, Denies dysuria, Denies urinary incontinence, Denies urinary hesitancy and Denies urinary urgency Musculoskeletal: Musculoskeletal: Reports no additional musculoskeletal complaints, Denies numbness and Denies tingling Neurologic: Denies dizziness, Denies loss of vision, Denies numbness and Denies tingling Psychiatric: Psychiatric: Reports no additional psychiatric complaints Endocrine: Endocrine: Reports no additional endocrine complaints Hematologic/Lymphatic: Hematologic/Lymphatic: Reports no additional hematologic/lymphatic complaints Allergic/Immunologic: Allergic/Immunologic: Reports no additional allergic/ immunologic complaints [facility] Past Medical History Attestation statement: The following information was validated with the patient. Source: old records reviewed Medical History Anxiety Asthma Irritable bowel syndrome (IBS) Smoker Surgical History History of section History of tubal ligation Family History Family History Father CVD (cardiovascular disease) Depression Myocardial infarction Mother Myocardial infarction Depression Hypertension CVD (cardiovascular disease) Maternal Grandmother Lung cancer Brother In good health Son In good health Daughter In good health Social History Social History Housing: Apartment Alcohol intake: current Alcohol intake frequency: holidays/special occasions only Patient Tobacco Use Status: Current everyday Tobacco user Cigarettes Per Day: 5 Second Hand Smoke Exposure: Yes Advance Directives: No Advance Directives Information Provided: No service: No Current occupational status: employed and student Cognitive needs: No Hearing needs: No Vision needs: No Physical Exam ED Vital Signs: Vital Signs - 24 hr 07/18/22 14:39 Temperature 98.0 F Pulse Rate 66 Respiratory Rate 18 Blood Pressure 120/86 Pulse Oximetry 94 Oxygen Delivery Method Room Air BMI result Body Mass Index 29.2 Const General: cooperative, no acute distress, alert and awake Nutritional Appearance: well nourished Orientation/consciousness: patient oriented x3 Limitations: no limitations HENMT Head: Yes normal to inspection and Yes atraumatic Ears: hearing grossly normal bilaterally and external ears normal General nose exam: Normal external nose present, no nasal discharge noted and no epistaxis Face and sinus: Yes normal facial exam, No abrasion and No laceration Mouth: Normal oral and palatal mucosa present, no drooling and no muffled voice Eyes General: appearance normal, both eyes and all related structures Periorbital: periorbital findings normal Eyelids: Yes eyelids normal Conjunctivae: conjunctivae normal Pupils: Equal, round and reactive pupils present EOM: EOMs intact bilaterally Neck Neck: Yes normal visual inspection, Yes full ROM and Yes no lymphadenopathy Chest Chest palpation & inspection: normal inspection of the chest Resp Effort & Inspection: normal respiratory effort and able to speak in complete sentences Auscultation: clear to auscultation bilaterally Cardio Rate: regular rate Rhythm: regular rhythm GI Inspection: Yes normal to inspection Neuro General: patient oriented x3 and moves all extremities Cranial nerves: Yes Equal, round and reactive pupils present Cognition (Neuro): normal cognition Motor exam (neuro): 5/5 motor strength present throughout Sensory Exam: Normal double simultaneous stimulation for sensation Coordination: [id number] test normal Extrem General: Yes normal to inspection, Yes full ROM and Yes capillary refill normal Psych Appearance: grossly normal Mental Status: mental status grossly normal Affect: normal affect Attitude: cooperative Thought process: Normal thought process present Thought content: Normal thought content present Insight: Good insight present (Psych) Medical Decision Making MDM Narrative Medical decision making narrative: Patient is a 36 year old assigned female at with a history of asthma presenting to the emergency department today with a cough. Patient's physical exam was unremarkable. Patient's rapid COVID-19 test was negative. Patient's chest x-ray showed no acute process. I explained my physical exam findings as well as all test results to the patient. I answered all questions asked by the patient. I stressed the importance of the patient taking her medication as prescribed. I stressed the importance of the patient following up with her primary care provider. I stressed the importance of the patient returning to the emergency department immediately if her symptoms were to worsen or if she were to develop any dizziness, shortness of breath, difficulty breathing, chest pain, blurry vision, loss of vision, nausea, vomiting, abdominal pain, fever, chills, back pain, or any other complaints. Patient verbalized agreement and understanding with this treatment plan and discharge. Medical Records Medical records reviewed: Yes I reviewed the patient's medical records. Lab Data Lab results reviewed: Yes I reviewed the patient's lab results. Labs: Lab Results 07/18/22 Range/Units 14:35 COVID-19 ([facility]) Negative (Negative) COVID-19 Clin Com See Note Imaging Data Chest x-ray: Attestation: I personally reviewed and interpreted this imaging study as follows: My impression: No acute process. Radiologist's impression: EXAMINATION: XR CHEST CLINICAL INFORMATION: Cough. COMPARISON: 06/14/2022 chest radiographs. TECHNIQUE: Frontal view of the chest was obtained. FINDINGS: No significant abnormality is noted involving the heart, lungs, mediastinum, bony thorax or soft tissues. XR/XR chest 1V IMPRESSION: No acute cardiopulmonary process. Dictated By: Jagdish Holloway MD Signed By: Electronically signed by Jagdish Holloway MD 07/18/22 1517 Discharge Plan Discharge Clinical Impression: RSV exposure Patient Disposition: Home, Self-Care Instructions: Respiratory Syncytial Virus (ED) Additional Instructions: Follow up with your primary care provider. Return to the emergency department immediately if your symptoms worsen or if you develop any dizziness, shortness of breath, difficulty breathing, chest pain, blurry vision, loss of vision, nausea, vomiting, abdominal pain, fever, chills, back pain, or any other complaints. Prescriptions: No Action albuterol sulfate 90 mcg/actuation HFA aerosol inhaler 2 puff inhalation Q4-6H PRN (Reason: shortness of breath or wheezing) Qty: 6.7 0RF oseltamivir 75 mg capsule 75 mg PO BID 5 Days Qty: 10 0RF azithromycin 250 mg tablet See Rx Instructions .ROUTE .COMPLEX Qty: 6 0RF Rx Instructions: For 250 mg dose pack: take 500 mg today (day 1), then 250 mg for 4 days (days 2-5) benzonatate 200 mg capsule 200 mg PO TID PRN (Reason: cough) Qty: 30 0RF prednisone 20 mg tablet 40 mg PO DAILY Qty: 10 0RF tizanidine 4 mg tablet 4 mg PO Q8H PRN (Reason: neck pain) 10 Days Qty: 30 1RF prednisone 10 mg tablet 10 mg PO DAILY 9 Days Qty: 18 0RF Rx Instructions: Take 3 tablets x3 days, 2 tablets x3 days, 1 tablet x3 days azithromycin 250 mg tablet See Rx Instructions PO .COMPLEX Qty: 6 0RF Rx Instructions: For 250 mg dose pack: take 500 mg today (day 1), then 250 mg for 4 days (days 2-5) PO nicotine 7 mg/24 hr patch 24 hour 1 patch transdermal Q24H 28 Days Qty: 28 0RF nicotine 14 mg/24 hr patch 24 hour 1 patch transdermal DAILY 7 Days Qty: 7 0RF Referrals: Alessio Hickman MD [Primary Care Provider] - Stand Alone Forms: Work/School Release Interventions: ED Discharge Assessment Last Done: 07/18/22 16:00 Discharge Date/Time: 07/18/22 16:00 Print Language: Malawian
== END 2022-07-18 16:00 | disposition home or self-care (01) ==
PROVIDERS: Emergency Provider Emergency Medicine Emergency Medical Services; PCP Internal Medicine
DX: R05.9 Cough, unspecified (principal); R06.02 Shortness of breath; F17.210 Nicotine dependence, cigarettes, uncomplicated; Z20.822 Contact with and (suspected) exposure to COVID-19; Z79.899 Other long term (current) drug therapy; Z71.6 Tobacco abuse counseling
CPT/HCPCS: 71045; 87635; 99282; 99283

== ENCOUNTER 2022-07-30 11:41 | Emergency (ER) | payer OTHER, SELFPAY ==
--- NOTE | ~2022-07-30 | CT_ITS ---
EXAMINATION: CT HEAD WITHOUT CONTRAST CLINICAL INFORMATION: Hearing loss in right ear for 5 days. COMPARISON: None TECHNIQUE: Contiguous axial imaging was performed from the skull base to vertex without intravenous administration of contrast. Coronal and sagittal reformatted images were obtained. This CT examination was performed using dose optimization techniques as appropriate, variously including the following: *Automated exposure control *Adjustment of mA and/or kV according to patient size (this includes techniques or standardized protocols for targeted exams where dose is matched to indication/reason for exam; i.e. extremities or head) *Use of iterative reconstruction technique DLP: 602 mGy-cm FINDINGS: The cortical sulci are normal. The lateral ventricles are symmetrical. The third and fourth ventricles are in their normal midline position. The basilar and prepontine cisterns are unremarkable. The cerebellopontine angles are unremarkable bilaterally. There is no acute intra or extracerebral abnormality. There is no mass effect or midline shift. Sections through the bony calvarium are unremarkable. The paranasal sinuses are clear. The bony orbits and orbital contents are unremarkable. The mastoid air cells are clear. The external auditory canals, middle and inner ears are unremarkable bilaterally. CT/CT head/brain wo IV con IMPRESSION: No acute intracranial pathology.
[2022-07-30 12:59] VITALS: BP 128/86; PULSE 76; RESP 18; TEMP 36.2; O2SAT 99; BMI 27.3
--- NOTE | 2022-07-30 15:35 | ED.GENADULT ---
HPI - General Adult General Chief complaint: General Medical Stated complaint: Can't hear in R ear for 5 days Time Seen by Provider: 07/30/22 14:33 Source: patient Mode of arrival: ambulatory History of Present Illness HPI narrative: 36 year old female with a past medical history of anxiety, asthma, IBS, recently recovered from RSV who presents to the ED c/o sudden onset right ear hearing loss that started 5 days ago. She reports rhinorrhea with clear discharge and mild cough with clear sputum. Reports mild lightheadedness and headache. Denies dizziness, ear pain, sinus pressure, vision change/loss, sore throat, fever, SOB/CP, recent travel Onset (ago): day(s) (5 days) Location: right (Right ear) Related Data Previous Rx's Medication Instructions Recorded albuterol sulfate 90 mcg/actuation 2 puff inhalation Q4-6H PRN 04/17/21 aerosol inhaler shortness of breath or wheezing #6.7 grams tizanidine 4 mg tablet 4 mg PO Q8H PRN neck pain 10 days 11/01/21 #30 tabs oseltamivir 75 mg capsule 75 mg PO BID 5 days #10 caps 01/17/22 azithromycin 250 mg tablet See Rx Instructions PO .COMPLEX #6 02/13/22 tabs nicotine 14 mg/24 hr daily 1 patch transdermal DAILY 7 days 02/13/22 transdermal patch #7 ea nicotine 7 mg/24 hr daily 1 patch transdermal Q24H 28 days 02/13/22 transdermal patch #28 ea prednisone 10 mg tablet 10 mg PO DAILY 9 days #18 tabs 02/13/22 azithromycin 250 mg tablet See Rx Instructions PO .COMPLEX #6 06/14/22 tabs benzonatate 200 mg capsule 200 mg PO TID PRN cough #30 caps 06/14/22 prednisone 20 mg tablet 40 mg PO DAILY #10 tabs 06/14/22 prednisone 20 mg tablet 40 mg PO DAILY 5 days #10 tabs 07/30/22 Allergies Allergy/AdvReac Type Severity Reaction Status Date / Time oxycodone [Percocet] Allergy Severe anaphylaxis, Verified 07/30/22 12:59 rash Penicillins [PENICILLINS] Allergy Intermediate SOB HIVES Verified 07/30/22 12:59 Review of Systems Review of Systems: Constitutional: No Fever, No Chills ENT/Mouth: No Ear Pain, + Hearing loss in Right ear, + Nasal Congestion, No Sinus Pain, No Hoarseness, No sore throat, + Rhinorrhea, No Swallowing Difficulty Cardiovascular: No Chest Pain, No SOB Respiratory: +Cough, +Sputum, No Wheezing Gastrointestinal: No Nausea, No Vomiting, No Diarrhea, No Constipation, No Abdominal pain Genitourinary: No Dysuria, No Urinary Frequency, No Hematuria, No Flank Pain Musculoskeletal: No joint pain, No Myalgias, No Joint Swelling Skin: No Skin Lesions, No rash Neuro: No Weakness, No Numbness, No Paresthesias Yes all other systems are reviewed and are negative [facility] Past Medical History Attestation statement: The following information was validated with the patient. Medical History Anxiety Asthma Irritable bowel syndrome (IBS) Smoker Surgical History History of section History of tubal ligation Family History Family History Father CVD (cardiovascular disease) Depression Myocardial infarction Mother Myocardial infarction Depression Hypertension CVD (cardiovascular disease) Maternal Grandmother Lung cancer Brother In good health Son In good health Daughter In good health Social History Social History Housing: Apartment Alcohol intake: current Alcohol intake frequency: holidays/special occasions only Patient Tobacco Use Status: Current everyday Tobacco user Cigarettes Per Day: 5 Second Hand Smoke Exposure: Yes Advance Directives: No Advance Directives Information Provided: Yes service: No Current occupational status: employed and student Cognitive needs: No Hearing needs: No Vision needs: No Physical Exam ED Vital Signs: Vital Signs - 24 hr 07/30/22 12:59 Temperature 97.2 F Pulse Rate 76 Respiratory Rate 18 Blood Pressure 128/86 Pulse Oximetry 99 Oxygen Delivery Method Room Air BMI result Body Mass Index 27.3 Const General: cooperative, comfortable, no acute distress, alert and awake Orientation/consciousness: patient oriented x3 HENMT Head: Yes normal to inspection Ears: hearing grossly normal bilaterally, external ears normal, TM's normal bilaterally, EAC's normal, mastoids normal and other (Hearing loss in right hear) Mouth: Normal oral and palatal mucosa present, tongue normal and moist mucous membranes Throat: Yes posterior oropharynx normal, Yes tonsils normal, Yes uvula midline, No uvula laterally displaced and No uvular edema Eyes General: appearance normal, both eyes and all related structures Neck Neck: Yes normal visual inspection, Yes no lymphadenopathy, Yes no meningeal signs, Yes supple and No anterior neck swelling Resp Effort & Inspection: normal respiratory effort and able to speak in complete sentences Auscultation: clear to auscultation bilaterally, no crackles, no rales, no rhonchi and no wheezes Cardio Jugular venous distension: no JVD Rate: regular rate Rhythm: regular rhythm Heart sounds: S1 normal heart sound present and S2 normal heart sound present Neuro General: patient oriented x3, gait normal, tone normal, moves all extremities and no meningeal signs Course Course Course Narrative: 1634--CT head/brain wo IV con IMPRESSION: No acute intracranial pathology. -no tuning fork found in the emergency department, unable to perform Rick >> case discussed with Dr. Pollard, will discharge home with p.o. prednisone close ENT follow-up. Medical Decision Making MDM Narrative Medical decision making narrative: 36 year old female with a past medical history of anxiety, asthma, IBS, recently recovered from RSV who presents to the ED c/o sudden onset right ear hearing loss that started 5 days ago. On examination, VSS, no cerumen impaction was noted, no fluid and Tympanic membrane was unremarkable bilaterally. No sinus tenderness. Concern for neuritis vs sensory neural hearing loss vs mass vs ?post viral complication. Low suspicion for ICH, no evidence of obstruction Plan: CT of the head Medical Records Medical records reviewed: Yes I reviewed the patient's medical records. Lab Data Lab results reviewed: Yes I reviewed the patient's lab results. Discharge Plan Discharge Clinical Impression: Hearing loss Patient Disposition: Home, Self-Care Instructions: Hearing Loss (ED) Additional Instructions: Your head CT is unremarkable. Prednisone as a steroid, please take as prescribed YOU NEED TO HAVE CLOSE FOLLOW-UP WITH EAR NOSE THROAT DOCTOR, CALL TOMORROW TO MAKE AN APPOINTMENT If her symptoms persist, worsen, you have persistent or worsening headache, lightheadedness, fever please return to the emergency department Prescriptions: New prednisone 20 mg tablet 40 mg PO DAILY 5 Days Qty: 10 0RF No Action albuterol sulfate 90 mcg/actuation HFA aerosol inhaler 2 puff inhalation Q4-6H PRN (Reason: shortness of breath or wheezing) Qty: 6.7 0RF oseltamivir 75 mg capsule 75 mg PO BID 5 Days Qty: 10 0RF azithromycin 250 mg tablet See Rx Instructions .ROUTE .COMPLEX Qty: 6 0RF Rx Instructions: For 250 mg dose pack: take 500 mg today (day 1), then 250 mg for 4 days (days 2-5) benzonatate 200 mg capsule 200 mg PO TID PRN (Reason: cough) Qty: 30 0RF prednisone 20 mg tablet 40 mg PO DAILY Qty: 10 0RF tizanidine 4 mg tablet 4 mg PO Q8H PRN (Reason: neck pain) 10 Days Qty: 30 1RF prednisone 10 mg tablet 10 mg PO DAILY 9 Days Qty: 18 0RF Rx Instructions: Take 3 tablets x3 days, 2 tablets x3 days, 1 tablet x3 days azithromycin 250 mg tablet See Rx Instructions PO .COMPLEX Qty: 6 0RF Rx Instructions: For 250 mg dose pack: take 500 mg today (day 1), then 250 mg for 4 days (days 2-5) PO nicotine 7 mg/24 hr patch 24 hour 1 patch transdermal Q24H 28 Days Qty: 28 0RF nicotine 14 mg/24 hr patch 24 hour 1 patch transdermal DAILY 7 Days Qty: 7 0RF Referrals: [facility] [Outside] [facility] [Outside] Remy Zamudio [Physician] - 2 days
== END 2022-07-30 18:19 | disposition home or self-care (01) ==
PROVIDERS: Emergency Provider Emergency Medicine; PCP Internal Medicine
DX: H91.91 Unspecified hearing loss, right ear (principal); J34.89 Other specified disorders of nose and nasal sinuses; R51.9 Headache, unspecified; Z79.899 Other long term (current) drug therapy; F17.210 Nicotine dependence, cigarettes, uncomplicated; Z71.6 Tobacco abuse counseling
CPT/HCPCS: 70450; 99283; 99284

== ENCOUNTER 2022-10-28 14:51 | Emergency (ER) | payer OTHER, SELFPAY ==
--- NOTE | ~2022-10-28 | XR_ITS ---
EXAMINATION: XR CHEST CLINICAL INFORMATION: Shortness of breath COMPARISON: 09/17/2022 TECHNIQUE: Frontal view of the chest was obtained. FINDINGS: No significant abnormality is noted involving the heart, lungs, mediastinum, bony thorax or soft tissues. XR/XR chest 1V IMPRESSION: Unremarkable examination.
--- NOTE | 2022-10-28 15:30 | ECG_ITS ---
Test Reason : CHEST PAIN Blood Pressure : / mmHG Vent. Rate : 048 BPM Atrial Rate : 048 BPM P-R Int : 154 ms QRS Dur : 082 ms QT Int : 424 ms P-R-T Axes : 028 065 025 degrees QTc Int : 378 ms Sinus bradycardia Otherwise normal ECG When compared with ECG of 17-JAN-2022 12:22, No significant changes seen Referred By: Generic ED Physician Electronically Signed By:CHAITANYA WEBSTER
[2022-10-28 16:01] VITALS: BP 159/97; PULSE 54; RESP 16; TEMP 36.2; O2SAT 99; BMI 25.4
--- NOTE | 2022-10-28 16:02 | ED.GENADULT ---
HPI - General Adult General Chief complaint: General Medical <JACOB Cunningham - Last Filed: 10/28/22 16:04> Stated complaint: Chest pain <JACOB Cunningham - Last Filed: 10/28/22 16:04> Time Seen by Provider: 10/28/22 19:56 <JACOB Cunningham - Last Filed: 10/28/22 16:04> Source: patient <Mo Bansal MD - Last Filed: 10/28/22 22:55> Mode of arrival: ambulatory <Mo Bansal MD - Last Filed: 10/28/22 22:55> Limitations: no limitations <Mo Bansal MD - Last Filed: 10/28/22 22:55> History of Present Illness HPI narrative: 37-year-old female who presents emergency department for evaluation of chills, body aches, headache, chest pain, fatigue x4 days. 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 She states that since that time she has been very fatigued. She states that her entire body aches. She has had nausea with 2-3 episodes of vomiting. She denied diarrhea. She states that she has had chest pain and shortness of breath. The patient states that her symptoms have persisted and not got any better, she does not think that she can work secondary to her symptoms. <Mo Bansal MD - Last Filed: 10/28/22 22:55> Related Data Home medications: Previous Rx's Medication Instructions Recorded albuterol sulfate 90 mcg/actuation 2 puff inhalation Q4-6H PRN 04/17/21 aerosol inhaler shortness of breath or wheezing #6.7 grams tizanidine 4 mg tablet 4 mg PO Q8H PRN neck pain 10 days 11/01/21 #30 tabs oseltamivir 75 mg capsule 75 mg PO BID 5 days #10 caps 01/17/22 azithromycin 250 mg tablet See Rx Instructions PO .COMPLEX #6 02/13/22 tabs nicotine 14 mg/24 hr daily 1 patch transdermal DAILY 7 days 02/13/22 transdermal patch #7 ea nicotine 7 mg/24 hr daily 1 patch transdermal Q24H 28 days 02/13/22 transdermal patch #28 ea prednisone 10 mg tablet 10 mg PO DAILY 9 days #18 tabs 02/13/22 azithromycin 250 mg tablet See Rx Instructions PO .COMPLEX #6 06/14/22 tabs benzonatate 200 mg capsule 200 mg PO TID PRN cough #30 caps 06/14/22 prednisone 20 mg tablet 40 mg PO DAILY #10 tabs 06/14/22 prednisone 20 mg tablet 40 mg PO DAILY 5 days #10 tabs 07/30/22 ibuprofen 400 mg tablet 400 mg PO Q8H PRN fever or pain 10/28/22 #30 tabs ondansetron 4 mg disintegrating 4 mg PO Q6-8H PRN nausea and 10/28/22 tablet vomiting #14 tabs <JACOB Cunningham - Last Filed: 10/28/22 16:04> Allergies/adverse reactions: Allergies Allergy/AdvReac Type Severity Reaction Status Date / Time oxycodone [Percocet] Allergy Severe anaphylaxis, Verified 07/30/22 12:59 rash Penicillins [PENICILLINS] Allergy Intermediate SOB HIVES Verified 07/30/22 12:59 <JACOB Cunningham - Last Filed: 10/28/22 16:04> Review of Systems Review of Systems: Yes all other systems are reviewed and are negative <Mo Bansal MD - Last Filed: 10/28/22 22:55> [facility] Past Medical History [facility] Narrative: Social history: 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 She states she is a former smoker but quit in February of 2023. She denies alcohol use. She denies drug use. <Mo Bansal MD - Last Filed: 10/28/22 22:55> Medical History: Medical History Anxiety Asthma Irritable bowel syndrome (IBS) Smoker <JACOB Cunningham - Last Filed: 10/28/22 16:04> Surgical History: Surgical History History of section History of tubal ligation <JACOB Cunningham - Last Filed: 10/28/22 16:04> Family History Family History: Family History Father CVD (cardiovascular disease) Depression Myocardial infarction Mother Myocardial infarction Depression Hypertension CVD (cardiovascular disease) Maternal Grandmother Lung cancer Brother In good health Son In good health Daughter In good health <JACOB Cunningham - Last Filed: 10/28/22 16:04> Social History Social History: Social History Housing: Apartment Alcohol intake: never Patient Tobacco Use Status: Current everyday Tobacco user Cigarettes Per Day: 5 Smoked in Last 30 Days: No Second Hand Smoke Exposure: Yes Use of substances other than those prescribed or required for medical reasons: No Advance Directives: No Advance Directives Information Provided: Yes Patient : No service: No Current occupational status: employed and student Cognitive needs: No Hearing needs: No Vision needs: No <JACOB Cunningham - Last Filed: 10/28/22 16:04> Physical Exam ED Vital Signs: Vital Signs - 24 hr 10/28/22 16:01 10/28/22 20:33 10/28/22 22:17 Temperature 97.2 F 98.0 F 97.7 F Pulse Rate 54 60 58 Respiratory Rate 16 18 18 Blood Pressure 159/97 H 170/86 H 165/92 H Pulse Oximetry 99 100 98 Oxygen Delivery Method Room Air Room Air Room Air BMI result Body Mass Index 25.4 <JACOB Cunningham - Last Filed: 10/28/22 16:04> Vital Signs - 24 hr 10/28/22 16:01 10/28/22 20:33 10/28/22 22:17 Temperature 97.2 F 98.0 F 97.7 F Pulse Rate 54 60 58 Respiratory Rate 16 18 18 Blood Pressure 159/97 H 170/86 H 165/92 H Pulse Oximetry 99 100 98 Oxygen Delivery Method Room Air Room Air Room Air BMI result Body Mass Index 25.4 <Mo Bansal MD - Last Filed: 10/28/22 22:55> Const General: cooperative and no acute distress <Mo Bansal MD - Last Filed: 10/28/22 22:55> Orientation/consciousness: oriented to person and oriented to place <Mo Bansal MD - Last Filed: 10/28/22 22:55> Limitations: no limitations <Mo Bansal MD - Last Filed: 10/28/22 22:55> HENMT Head: Yes normal to inspection, Yes normocephalic and Yes atraumatic <Mo Bansal MD - Last Filed: 10/28/22 22:55> Ears: external ears normal <Mo Bansal MD - Last Filed: 10/28/22 22:55> General nose exam: Normal external nose present <Mo Bansal MD - Last Filed: 10/28/22 22:55> Face and sinus: Yes normal facial exam <MD Everett Lemon Last Filed: 10/28/22 22:55> Mouth: Normal oral and palatal mucosa present <Mo Bansal MD - Last Filed: 10/28/22 22:55> Throat: Yes posterior oropharynx normal <Mo Bansal MD - Last Filed: 10/28/22 22:55> Eyes General: appearance normal, both eyes and all related structures <Mo Bansal MD - Last Filed: 10/28/22 22:55> Pupils: Equal, round and reactive pupils present <MD Everett Lemon Last Filed: 10/28/22 22:55> Neck Neck: Yes normal visual inspection, Yes no lymphadenopathy, Yes trachea midline and Yes supple <MD Everett Lemon Last Filed: 10/28/22 22:55> Chest Chest palpation & inspection: normal inspection of the chest and normal palpation of entire chest wall <Mo Bansal MD - Last Filed: 10/28/22 22:55> Resp Effort & Inspection: normal respiratory effort and able to speak in complete sentences <MD Everett Lemon Last Filed: 10/28/22 22:55> Auscultation: clear to auscultation bilaterally <MD Everett Lemon Last Filed: 10/28/22 22:55> Cardio Rate: regular rate <MD Everett Lemon Last Filed: 10/28/22 22:55> Rhythm: regular rhythm <Mo Bansal MD - Last Filed: 10/28/22 22:55> Heart sounds: S1 normal heart sound present, S2 normal heart sound present and no murmurs <Mo Bansal MD - Last Filed: 10/28/22 22:55> GI Inspection: Yes normal to inspection <Mo Bansal MD - Last Filed: 10/28/22 22:55> Palpation (GI): Soft to palpation, nontender and no guarding <Mo Bansal MD - Last Filed: 10/28/22 22:55> Auscultation: normal bowel sounds <Mo Bansal MD - Last Filed: 10/28/22 22:55> General: Yes no CVA tenderness <Mo Bansal MD - Last Filed: 10/28/22 22:55> Back/Spine/Pelvis Back: no CVA tenderness <Mo Bansal MD - Last Filed: 10/28/22 22:55> Skin General skin exam: no rashes or lesions noted <Mo Bansal MD - Last Filed: 10/28/22 22:55> Neuro General: oriented to person and oriented to place <Mo Bansal MD - Last Filed: 10/28/22 22:55> Cranial nerves: Yes CN's II-XII intact bilaterally and Yes Equal, round and reactive pupils present <Mo Bansal MD - Last Filed: 10/28/22 22:55> Cognition (Neuro): normal cognition <Mo Bansal MD - Last Filed: 10/28/22 22:55> Motor exam (neuro): 5/5 motor strength present throughout <Mo Bansal MD - Last Filed: 10/28/22 22:55> Extrem General: Yes normal to inspection <Mo Bansal MD - Last Filed: 10/28/22 22:55> Psych Appearance: grossly normal <Mo Bansal MD - Last Filed: 10/28/22 22:55> Speech and movement: Normal speech and movement present <Mo Bansal MD - Last Filed: 10/28/22 22:55> Affect: normal affect <Mo Bansal MD - Last Filed: 10/28/22 22:55> Attitude: cooperative <Mo Bansal MD - Last Filed: 10/28/22 22:55> Thought process: Normal thought process present <Mo Bansal MD - Last Filed: 10/28/22 22:55> Thought content: Normal thought content present <Mo Bansal MD - Last Filed: 10/28/22 22:55> Course Course Course Narrative: RME - 37 yo female presenting with 4 days of body aches, chest pains, nausea, vomiting and not feeling well. No known sick contacts. Denies chance of . No fevers. VSS in triage. Labs and viral swabs ordered. EKG already done. Stable to go to waiting room until treatment room is available. <JACOB Cunningham - Last Filed: 10/28/22 16:04> Medications Administered Discontinued Medications Generic Name Dose Route Start Last Admin Trade Name Freq PRN Reason Stop Dose Admin Ibuprofen 400 mg 10/28/22 20:15 10/28/22 20:31 Ibuprofen 400 Mg Tablet PO 10/28/22 20:16 400 mg ONCE ONE Administration Ondansetron HCl 4 mg 10/28/22 20:15 10/28/22 20:32 Ondansetron Odt 4 Mg Tab.Rapdis TRANSLINGU 10/28/22 20:16 4 mg ONCE STA Administration <JACOB Cunningham - Last Filed: 10/28/22 16:04> Medications Administered Discontinued Medications Generic Name Dose Route Start Last Admin Trade Name Freq PRN Reason Stop Dose Admin Ibuprofen 400 mg 10/28/22 20:15 10/28/22 20:31 Ibuprofen 400 Mg Tablet PO 10/28/22 20:16 400 mg ONCE ONE Administration Ondansetron HCl 4 mg 10/28/22 20:15 10/28/22 20:32 Ondansetron Odt 4 Mg Tab.Rapdis TRANSLINGU 10/28/22 20:16 4 mg ONCE STA Administration <Mo Bansal MD - Last Filed: 10/28/22 22:55> Medical Decision Making Medical Decision Making MDM Narrative: 37-year-old female who presents emergency department for evaluation of 4 days of headache, chest pain, body aches, fatigue, nausea vomiting with no diarrhea. The patient's vital signs revealed an elevated blood pressure of 159/97 otherwise were unremarkable. Physical examination was unremarkable. Patient had a laboratory evaluation ordered by the triage provider that included: CBC, BMP, liver panel, magnesium, troponin, COVID-19, influenza, RSV, test, chest x-ray 2017: Laboratory evaluation was interpreted by me as follows: Normal CBC, normal BMP and LFTs troponin was below detectable limits. test was negative. Urinalysis was negative. COVID-19, RSV and influenza were negative. <Mo Bansal MD - Last Filed: 10/28/22 22:55> Differential Diagnosis Differential diagnosis includes was not limited to viral syndrome, COVID-19, influenza, myocardial infarction, myocardial ischemia, costochondritis, electrolyte abnormalities, dehydration, volume depletion <Mo Bansal MD - Last Filed: 10/28/22 22:55> Lab Data [facility] Lab Attestation statement: I reviewed the patient's lab results. <Mo Bansal MD - Last Filed: 10/28/22 22:55> Please see [facility] for discussion of labs <Mo Bansal MD - Last Filed: 10/28/22 22:55> Result Diagrams: 10/28/22 16:59 10/28/22 16:59 <AJCOB Cunningham - Last Filed: 10/28/22 16:04> Labs: Lab Results 10/28/22 10/28/22 10/28/22 Range/Units 16:59 16:59 16:59 WBC 6.4 (4.8-10.8) X10*3/uL RBC 4.07 L (4.20-5.50) X10*6/uL Hgb 12.4 (12.0-16.0) g/dl Hct 36.5 L (37.0-47.0) % MCV 89.7 (80.0-98.0) fL MCH 30.5 (27.0-33.0) pg MCHC 34.0 (31.0-35.0) g/dl RDW 12.6 (11.0-16.0) % Plt Count 318 (160-400) X10*3/uL MPV 8.9 L (9.4-12.3) fL Immature Gran % (Auto) 0.2 (0.0-0.4) % Neut % (Auto) 41.9 L (45-73) % Lymph % (Auto) 45.7 H (20-40) % Lake % (Auto) 8.0 (2-11) % Eos % (Auto) 3.4 (0-4) % Baso % (Auto) 0.8 (0-2) % Lymph # (Auto) 2.9 (1.2-4.9) X10*3/uL Lake # (Auto) 0.5 (0.1-1.2) X10*3/uL Eos # (Auto) 0.2 (0.0-0.4) X10*3/uL Baso # (Auto) 0.1 (0.0-0.2) X10*3/uL Abs Immat Gran (auto) 0.01 (0.00-0.03) X10*3/uL Absolute Neuts (auto) 2.7 (2.0-8.3) x10*3/uL Absolute Nucleated RBC 0.000 (0.0-0.012) X10*3/uL Nucleated RBC % (auto) 0.0 (0.0-0.2) /100WBC Sodium 138 (135-145) mmol/L Potassium 3.9 (3.3-5.1) mmol/L Chloride 104 (96-108) mmol/L Carbon Dioxide 26 (22-29) mmol/L Anion Gap 12 (12-20) BUN 12 (9-16) mg/dL Creatinine 0.72 (0.5-1.4) mg/dL Estim Creat Clear Calc 88.0 Estimated GFR > 60 Random Glucose 87 (60-115) mg/dL Calcium 9.1 (8.4-10.2) mg/dL Magnesium 1.9 (1.6-2.6) mg/dL Total Bilirubin 0.3 (0.0-1.0) mg/dL Direct Bilirubin < 0.2 (0.0-0.5) mg/dL AST 12 (5-31) U/L ALT 10 (0-31) U/L Alkaline Phosphatase 65 (39-117) U/L Troponin I High Sens < 3.5 (<3.5-17.0) ng/L Total Protein 6.3 L (6.5-8.0) g/dL Albumin 4.0 (3.5-5.0) g/dL Urine Color Urine Appearance Urine pH (5.0-9.0) Ur Specific [place] (1.005-1.025) Urine Protein (Neg-Trace) mg/dL Urine Glucose (UA) (Negative) mg/dL Urine Ketones (Negative) mg/dL Urine Blood (Negative) Urine Nitrite (Negative) Ur Leukocyte Esterase (Negative) Urine RBC (0-2) /HPF Urine WBC (0-5) /HPF Ur Squamous Epith Cells (0-2) /HPF Urine Bacteria (None Seen) Hyaline Casts (0-2) /LPF Urine Test (NEGATIVE) Influenza Type A (PCR) (Negative) Influenza Type B (PCR) (Negative) RSV RNA Qual (PCR) (Negative) SARS-CoV-2 RNA (RT-PCR) (Negative) 10/28/22 10/28/22 10/28/22 Range/Units 16:59 20:58 20:59 WBC (4.8-10.8) X10*3/uL RBC (4.20-5.50) X10*6/uL Hgb (12.0-16.0) g/dl Hct (37.0-47.0) % MCV (80.0-98.0) fL MCH (27.0-33.0) pg MCHC (31.0-35.0) g/dl RDW (11.0-16.0) % Plt Count (160-400) X10*3/uL MPV (9.4-12.3) fL Immature Gran % (Auto) (0.0-0.4) % Neut % (Auto) (45-73) % Lymph % (Auto) (20-40) % Lake % (Auto) (2-11) % Eos % (Auto) (0-4) % Baso % (Auto) (0-2) % Lymph # (Auto) (1.2-4.9) X10*3/uL Lake # (Auto) (0.1-1.2) X10*3/uL Eos # (Auto) (0.0-0.4) X10*3/uL Baso # (Auto) (0.0-0.2) X10*3/uL Abs Immat Gran (auto) (0.00-0.03) X10*3/uL Absolute Neuts (auto) (2.0-8.3) x10*3/uL Absolute Nucleated RBC (0.0-0.012) X10*3/uL Nucleated RBC % (auto) (0.0-0.2) /100WBC Sodium (135-145) mmol/L Potassium (3.3-5.1) mmol/L Chloride (96-108) mmol/L Carbon Dioxide (22-29) mmol/L Anion Gap (12-20) BUN (9-16) mg/dL Creatinine (0.5-1.4) mg/dL Estim Creat Clear Calc Estimated GFR Random Glucose (60-115) mg/dL Calcium (8.4-10.2) mg/dL Magnesium (1.6-2.6) mg/dL Total Bilirubin (0.0-1.0) mg/dL Direct Bilirubin (0.0-0.5) mg/dL AST (5-31) U/L ALT (0-31) U/L Alkaline Phosphatase (39-117) U/L Troponin I High Sens (<3.5-17.0) ng/L Total Protein (6.5-8.0) g/dL Albumin (3.5-5.0) g/dL Urine Color Yellow Urine Appearance Clear Urine pH 6.0 (5.0-9.0) Ur Specific [place] 1.020 (1.005-1.025) Urine Protein Negative (Neg-Trace) mg/dL Urine Glucose (UA) Negative (Negative) mg/dL Urine Ketones Negative (Negative) mg/dL Urine Blood Moderate (2+) H (Negative) Urine Nitrite Negative (Negative) Ur Leukocyte Esterase Negative (Negative) Urine RBC 3-5 H (0-2) /HPF Urine WBC 0-5 (0-5) /HPF Ur Squamous Epith Cells 0-2 (0-2) /HPF Urine Bacteria None Seen (None Seen) Hyaline Casts 0-2 (0-2) /LPF Urine Test NEGATIVE (NEGATIVE) Influenza Type A (PCR) NEGATIVE (Negative) Influenza Type B (PCR) NEGATIVE (Negative) RSV RNA Qual (PCR) NEGATIVE (Negative) SARS-CoV-2 RNA (RT-PCR) NEGATIVE (Negative) <JACOB Cunningham - Last Filed: 10/28/22 16:04> Lab Results 10/28/22 10/28/22 10/28/22 Range/Units 16:59 16:59 16:59 WBC 6.4 (4.8-10.8) X10*3/uL RBC 4.07 L (4.20-5.50) X10*6/uL Hgb 12.4 (12.0-16.0) g/dl Hct 36.5 L (37.0-47.0) % MCV 89.7 (80.0-98.0) fL MCH 30.5 (27.0-33.0) pg MCHC 34.0 (31.0-35.0) g/dl RDW 12.6 (11.0-16.0) % Plt Count 318 (160-400) X10*3/uL MPV 8.9 L (9.4-12.3) fL Immature Gran % (Auto) 0.2 (0.0-0.4) % Neut % (Auto) 41.9 L (45-73) % Lymph % (Auto) 45.7 H (20-40) % Lake % (Auto) 8.0 (2-11) % Eos % (Auto) 3.4 (0-4) % Baso % (Auto) 0.8 (0-2) % Lymph # (Auto) 2.9 (1.2-4.9) X10*3/uL Lake # (Auto) 0.5 (0.1-1.2) X10*3/uL Eos # (Auto) 0.2 (0.0-0.4) X10*3/uL Baso # (Auto) 0.1 (0.0-0.2) X10*3/uL Abs Immat Gran (auto) 0.01 (0.00-0.03) X10*3/uL Absolute Neuts (auto) 2.7 (2.0-8.3) x10*3/uL Absolute Nucleated RBC 0.000 (0.0-0.012) X10*3/uL Nucleated RBC % (auto) 0.0 (0.0-0.2) /100WBC Sodium 138 (135-145) mmol/L Potassium 3.9 (3.3-5.1) mmol/L Chloride 104 (96-108) mmol/L Carbon Dioxide 26 (22-29) mmol/L Anion Gap 12 (12-20) BUN 12 (9-16) mg/dL Creatinine 0.72 (0.5-1.4) mg/dL Estim Creat Clear Calc 88.0 Estimated GFR > 60 Random Glucose 87 (60-115) mg/dL Calcium 9.1 (8.4-10.2) mg/dL Magnesium 1.9 (1.6-2.6) mg/dL Total Bilirubin 0.3 (0.0-1.0) mg/dL Direct Bilirubin < 0.2 (0.0-0.5) mg/dL AST 12 (5-31) U/L ALT 10 (0-31) U/L Alkaline Phosphatase 65 (39-117) U/L Troponin I High Sens < 3.5 (<3.5-17.0) ng/L Total Protein 6.3 L (6.5-8.0) g/dL Albumin 4.0 (3.5-5.0) g/dL Urine Color Urine Appearance Urine pH (5.0-9.0) Ur Specific [place] (1.005-1.025) Urine Protein (Neg-Trace) mg/dL Urine Glucose (UA) (Negative) mg/dL Urine Ketones (Negative) mg/dL Urine Blood (Negative) Urine Nitrite (Negative) Ur Leukocyte Esterase (Negative) Urine RBC (0-2) /HPF Urine WBC (0-5) /HPF Ur Squamous Epith Cells (0-2) /HPF Urine Bacteria (None Seen) Hyaline Casts (0-2) /LPF Urine Test (NEGATIVE) Influenza Type A (PCR) (Negative) Influenza Type B (PCR) (Negative) RSV RNA Qual (PCR) (Negative) SARS-CoV-2 RNA (RT-PCR) (Negative) 10/28/22 10/28/22 10/28/22 Range/Units 16:59 20:58 20:59 WBC (4.8-10.8) X10*3/uL RBC (4.20-5.50) X10*6/uL Hgb (12.0-16.0) g/dl Hct (37.0-47.0) % MCV (80.0-98.0) fL MCH (27.0-33.0) pg MCHC (31.0-35.0) g/dl RDW (11.0-16.0) % Plt Count (160-400) X10*3/uL MPV (9.4-12.3) fL Immature Gran % (Auto) (0.0-0.4) % Neut % (Auto) (45-73) % Lymph % (Auto) (20-40) % Lake % (Auto) (2-11) % Eos % (Auto) (0-4) % Baso % (Auto) (0-2) % Lymph # (Auto) (1.2-4.9) X10*3/uL [place] # (Auto) (0.1-1.2) X10*3/uL Eos # (Auto) (0.0-0.4) X10*3/uL Baso # (Auto) (0.0-0.2) X10*3/uL Abs Immat Gran (auto) (0.00-0.03) X10*3/uL Absolute Neuts (auto) (2.0-8.3) x10*3/uL Absolute Nucleated RBC (0.0-0.012) X10*3/uL Nucleated RBC % (auto) (0.0-0.2) /100WBC Sodium (135-145) mmol/L Potassium (3.3-5.1) mmol/L Chloride (96-108) mmol/L Carbon Dioxide (22-29) mmol/L Anion Gap (12-20) BUN (9-16) mg/dL Creatinine (0.5-1.4) mg/dL Estim Creat Clear Calc Estimated GFR Random Glucose (60-115) mg/dL Calcium (8.4-10.2) mg/dL Magnesium (1.6-2.6) mg/dL Total Bilirubin (0.0-1.0) mg/dL Direct Bilirubin (0.0-0.5) mg/dL AST (5-31) U/L ALT (0-31) U/L Alkaline Phosphatase (39-117) U/L Troponin I High Sens (<3.5-17.0) ng/L Total Protein (6.5-8.0) g/dL Albumin (3.5-5.0) g/dL Urine Color Yellow Urine Appearance Clear Urine pH 6.0 (5.0-9.0) Ur Specific [place] 1.020 (1.005-1.025) Urine Protein Negative (Neg-Trace) mg/dL Urine Glucose (UA) Negative (Negative) mg/dL Urine Ketones Negative (Negative) mg/dL Urine Blood Moderate (2+) H (Negative) Urine Nitrite Negative (Negative) Ur Leukocyte Esterase Negative (Negative) Urine RBC 3-5 H (0-2) /HPF Urine WBC 0-5 (0-5) /HPF Ur Squamous Epith Cells 0-2 (0-2) /HPF Urine Bacteria None Seen (None Seen) Hyaline Casts 0-2 (0-2) /LPF Urine Test NEGATIVE (NEGATIVE) Influenza Type A (PCR) NEGATIVE (Negative) Influenza Type B (PCR) NEGATIVE (Negative) RSV RNA Qual (PCR) NEGATIVE (Negative) SARS-CoV-2 RNA (RT-PCR) NEGATIVE (Negative) <Mo Bansal MD - Last Filed: 10/28/22 22:55> Independent Interpretation I performed an independent interpretation of an: EKG and Plain X-Ray (Chest x-ray) <Mo Bansal MD - Last Filed: 10/28/22 22:55> Interpretation: My independent interpretation patient's 12 EKG done at 15:55 is as follows: Sinus bradycardia with a rate of 48, normal [place] interval, QRS duration and QTC interval, no ST segment elevation, no ST segment depression, flattened T-wave in lead 3, inverted T-wave in V1, no PACs, no PVCs My independent her petition of the patient's one-view chest x-ray was no acute disease <Mo Bansal MD - Last Filed: 10/28/22 22:55> Radiology Impression Discussion of test interpretation with radiology: I have reviewed the radiologist's reading. <Mo Bansal MD - Last Filed: 10/28/22 22:55> Radiologist Impression: XR/XR chest 1V IMPRESSION: Unremarkable examination. ?Dictated By: Dennis Campos MD Signed By: <Electronically signed by Dennis Campos MD in [place]>10/28/221804 <Mo Bansal MD - Last Filed: 10/28/22 22:55> Discharge Plan Discharge Clinical Impression: Viral syndrome <JACOB Cunningham - Last Filed: 10/28/22 16:04> Patient Disposition: Home, Self-Care <JACOB Cunningham - Last Filed: 10/28/22 16:04> Instructions: Viral Syndrome (ED) <JACOB Cunningham - Last Filed: 10/28/22 16:04> Additional Instructions: Your laboratory evaluation was normal. Your COVID-19 and influenza tests were negative. Your chest x-ray revealed no pneumonia. Your EKG was normal. Your symptoms are consistent with a viral infection, there are many flu-like viruses that can make you sick, they can sometimes last for 1-2 weeks. Take ibuprofen 200 mg pills, 2 pills every 6 hours as needed for pain. Take Tylenol (acetaminophen) 500 mg pills, 2 pills every 4 to 6 hours as needed for pain. Take Zofran ODT 4 mg pills, 1 pill dissolved in your mouth every 8 hours as needed for nausea and vomiting. Follow-up with your doctor in 2 days. Please return to the emergency department if your symptoms get worse or if you develop any symptoms that are concerning to you. Please see the work note. <JACOB Cunningham - Last Filed: 10/28/22 16:04> Prescriptions: New ondansetron 4 mg tablet,disintegrating 4 mg PO Q6-8H PRN (Reason: nausea and vomiting) Qty: 14 0RF ibuprofen 400 mg tablet 400 mg PO Q8H PRN (Reason: fever or pain) Qty: 30 0RF No Action albuterol sulfate 90 mcg/actuation HFA aerosol inhaler 2 puff inhalation Q4-6H PRN (Reason: shortness of breath or wheezing) Qty: 6.7 0RF oseltamivir 75 mg capsule 75 mg PO BID 5 Days Qty: 10 0RF azithromycin 250 mg tablet See Rx Instructions .ROUTE .COMPLEX Qty: 6 0RF Rx Instructions: For 250 mg dose pack: take 500 mg today (day 1), then 250 mg for 4 days (days 2-5) benzonatate 200 mg capsule 200 mg PO TID PRN (Reason: cough) Qty: 30 0RF prednisone 20 mg tablet 40 mg PO DAILY Qty: 10 0RF prednisone 20 mg tablet 40 mg PO DAILY 5 Days Qty: 10 0RF tizanidine 4 mg tablet 4 mg PO Q8H PRN (Reason: neck pain) 10 Days Qty: 30 1RF prednisone 10 mg tablet 10 mg PO DAILY 9 Days Qty: 18 0RF Rx Instructions: Take 3 tablets x3 days, 2 tablets x3 days, 1 tablet x3 days azithromycin 250 mg tablet See Rx Instructions PO .COMPLEX Qty: 6 0RF Rx Instructions: For 250 mg dose pack: take 500 mg today (day 1), then 250 mg for 4 days (days 2-5) PO nicotine 7 mg/24 hr patch 24 hour 1 patch transdermal Q24H 28 Days Qty: 28 0RF nicotine 14 mg/24 hr patch 24 hour 1 patch transdermal DAILY 7 Days Qty: 7 0RF <JACOB Cunningham - Last Filed: 10/28/22 16:04> Stand Alone Forms: Work/School Release <JACOB Cunningham - Last Filed: 10/28/22 16:04>
[2022-10-28 17:02] LABS: MANUAL DIFF FLAG NO
[2022-10-28 17:04] LABS: Basophils Absolute Auto 0.1 X10*3/uL (0.0-0.2); Basophils Percent Auto 0.8 % (0-2); Eosinophils Absolute Auto 0.2 X10*3/uL (0.0-0.4); Eosinophils Percent Auto 3.4 % (0-4); Hematocrit 36.5 % (37.0-47.0); Hemoglobin 12.4 g/dl (12.0-16.0); Imm Gran Abs Auto 0.01 X10*3/uL (0.00-0.03); Imm Gran Pct Auto 0.2 % (0.0-0.4); Lymphocytes Absolute Auto 2.9 X10*3/uL (1.2-4.9); Lymphocytes Percent Auto 45.7 % (20-40); Mean Corpuscular Hemoglobin 30.5 pg (27.0-33.0); Mean Corpuscular Volume 89.7 fL (80.0-98.0); Mean Platelet Volume 8.9 fL (9.4-12.3); Monocytes Absolute Auto 0.5 X10*3/uL (0.1-1.2); Neutrophils Absolute Auto 2.7 x10*3/uL (2.0-8.3); Neutrophils Percent Auto 41.9 % (45-73); Platelet Count 318 X10*3/uL (160-400); Red Blood Count 4.07 X10*6/uL (4.20-5.50); Red Cell Distribution Width 12.6 % (11.0-16.0); White Blood Count 6.4 X10*3/uL (4.8-10.8)
[2022-10-28 17:22] LABS: Alanine Aminotransferase 10 U/L (0-31); Alkaline Phosphatase 65 U/L (39-117); Anion Gap 12 (12-20); Aspartate Amino Transferase 12 U/L (5-31); Bilirubin Direct < 0.2 mg/dL (0.0-0.5); Bilirubin Total 0.3 mg/dL (0.0-1.0); Blood Urea Nitrogen 12 mg/dL (9-16); Calcium 9.1 mg/dL (8.4-10.2); Carbon Dioxide 26 mmol/L (22-29); Chloride 104 mmol/L (96-108); Estimated Glomerular Filt Rate > 60; Glucose Random 87 mg/dL (60-115); Magnesium 1.9 mg/dL (1.6-2.6); Potassium 3.9 mmol/L (3.3-5.1); Sodium 138 mmol/L (135-145); Total Protein 6.3 g/dL (6.5-8.0)
[2022-10-28 17:40] LABS: Influenza A PCR NEGATIVE (Negative); Influenza B PCR NEGATIVE (Negative); Resp Syncy Virus RNA Qual PCR NEGATIVE (Negative); SARS COV2 PCR INHOUSE NEGATIVE (Negative)
[2022-10-28 17:45] LABS: Troponin-I High Sensitivity < 3.5 ng/L (<3.5-17.0)
[2022-10-28] MEDS: Ibuprofen 400 MG TABLET PO (20:31)
[2022-10-28] MEDS: Ondansetron ODT 4 MG TAB.RAPDIS TRANSLINGU (20:32)
[2022-10-28 20:33] VITALS: BP 170/86; PULSE 60; RESP 18; TEMP 36.7; O2SAT 100
[2022-10-28 21:04] LABS: Appearance Urine Clear; Color Urine Yellow; Glucose Urine UA Negative (Negative); Leukocyte Esterase Urine Negative (Negative); Nitrite Urine Negative (Negative); UMIC TRIGGER UACC YES; Urine Blood Moderate (2+) (Negative); Urine Ketones Negative (Negative); Urine Protein Negative (Neg-Trace)
[2022-10-28 21:05] LABS: UPreg QC Valid YES; Urine Pregnancy NEGATIVE (NEGATIVE)
[2022-10-28 21:10] LABS: Bacteria Urine None Seen (None Seen); Hyaline Casts Urine 0-2 /LPF (0-2); Squamous Epithelial Cell Urine 0-2 /HPF (0-2); WBC Urine 0-5 /HPF (0-5)
[2022-10-28 22:17] VITALS: BP 165/92; PULSE 58; RESP 18; TEMP 36.5; O2SAT 98
--- NOTE | 2022-10-28 23:09 | PC.NURSE ---
Dr. Kwon aware of pt elevated blood pressure.
--- NOTE | 2022-10-28 23:12 | PC.NURSE ---
Pt BELTRAN x 4 ambulatory. Pt in agreement to discharge.
== END 2022-10-28 23:14 | disposition home or self-care (01) ==
PROVIDERS: Physician Assistant; Emergency Provider Emergency Medicine Emergency Medical Services; PCP Internal Medicine
DX: B34.9 Viral infection, unspecified (principal); R07.89 Other chest pain; M79.10 Myalgia, unspecified site; R51.9 Headache, unspecified; F17.210 Nicotine dependence, cigarettes, uncomplicated; Z20.822 Contact with and (suspected) exposure to COVID-19; Z20.828 Contact with and (suspected) exposure to other viral communicable diseases; Z71.6 Tobacco abuse counseling; Z79.899 Other long term (current) drug therapy
CPT/HCPCS: 0241U; 71045; 80048; 80076; 81001; 81025; 83735; 84484; 85025; 93005; 99283; 99285

== ENCOUNTER 2022-11-03 10:00 | Outpatient (REF) | payer OTHER, SELFPAY ==
--- NOTE | ~2022-11-03 | XR_ITS ---
EXAMINATION: XR CERVICAL SPINE XR LUMBOSACRAL SPINE XR SACROILIAC JOINTS CLINICAL INFORMATION: Cervicalgia, low back pain and sacrococcygeal disorder. COMPARISON: Cervical and lumbar spine radiographs 08/07/2016. TECHNIQUE: Cervical spine AP, lateral and AP open mouth odontoid views. Lumbosacral spine 3 views. Sacroiliac joints 3 views. FINDINGS: CERVICAL SPINE: Mild flexion of the cervical spine. The vertebral body height is maintained. Minimal disc narrowing at C5-C6 with a small osteophyte at the superior margin of C6. No acute findings. Prevertebral soft tissues are normal. LUMBOSACRAL SPINE: Mild right convex curvature of the lumbar spine. Minimal disc height loss at L2-L3. Moderate disc height loss at L5-S1. Mild associated retrolisthesis of L5 on S1 without change. Endplate osteophytes are seen throughout the lumbar spine. SACROILIAC JOINTS: The bilateral sacroiliac joints are well-defined without erosions or narrowing seen. XR/XR sacroiliac joint min 3V IMPRESSION: Mild flexion of the cervical spine without acute osseous abnormality. Mild degenerative changes in the lumbar spine with mild right convex curvature of the lumbar spine. No acute findings. Unremarkable sacroiliac joints.
--- NOTE | ~2022-11-03 | XR_ITS ---
EXAMINATION: XR CERVICAL SPINE XR LUMBOSACRAL SPINE XR SACROILIAC JOINTS CLINICAL INFORMATION: Cervicalgia, low back pain and sacrococcygeal disorder. COMPARISON: Cervical and lumbar spine radiographs 08/07/2016. TECHNIQUE: Cervical spine AP, lateral and AP open mouth odontoid views. Lumbosacral spine 3 views. Sacroiliac joints 3 views. FINDINGS: CERVICAL SPINE: Mild flexion of the cervical spine. The vertebral body height is maintained. Minimal disc narrowing at C5-C6 with a small osteophyte at the superior margin of C6. No acute findings. Prevertebral soft tissues are normal. LUMBOSACRAL SPINE: Mild right convex curvature of the lumbar spine. Minimal disc height loss at L2-L3. Moderate disc height loss at L5-S1. Mild associated retrolisthesis of L5 on S1 without change. Endplate osteophytes are seen throughout the lumbar spine. SACROILIAC JOINTS: The bilateral sacroiliac joints are well-defined without erosions or narrowing seen. XR/XR lumbar spine 2-3V IMPRESSION: Mild flexion of the cervical spine without acute osseous abnormality. Mild degenerative changes in the lumbar spine with mild right convex curvature of the lumbar spine. No acute findings. Unremarkable sacroiliac joints.
--- NOTE | ~2022-11-03 | XR_ITS ---
EXAMINATION: XR CERVICAL SPINE XR LUMBOSACRAL SPINE XR SACROILIAC JOINTS CLINICAL INFORMATION: Cervicalgia, low back pain and sacrococcygeal disorder. COMPARISON: Cervical and lumbar spine radiographs 08/07/2016. TECHNIQUE: Cervical spine AP, lateral and AP open mouth odontoid views. Lumbosacral spine 3 views. Sacroiliac joints 3 views. FINDINGS: CERVICAL SPINE: Mild flexion of the cervical spine. The vertebral body height is maintained. Minimal disc narrowing at C5-C6 with a small osteophyte at the superior margin of C6. No acute findings. Prevertebral soft tissues are normal. LUMBOSACRAL SPINE: Mild right convex curvature of the lumbar spine. Minimal disc height loss at L2-L3. Moderate disc height loss at L5-S1. Mild associated retrolisthesis of L5 on S1 without change. Endplate osteophytes are seen throughout the lumbar spine. SACROILIAC JOINTS: The bilateral sacroiliac joints are well-defined without erosions or narrowing seen. XR/XR cervical spine 3V IMPRESSION: Mild flexion of the cervical spine without acute osseous abnormality. Mild degenerative changes in the lumbar spine with mild right convex curvature of the lumbar spine. No acute findings. Unremarkable sacroiliac joints.
[2022-11-03 10:17] LABS: MANUAL DIFF FLAG NO
[2022-11-03 10:27] LABS: Basophils Absolute Auto 0.1 X10*3/uL (0.0-0.2); Basophils Percent Auto 0.8 % (0-2); Eosinophils Absolute Auto 0.2 X10*3/uL (0.0-0.4); Hematocrit 38.1 % (37.0-47.0); Hemoglobin 12.9 g/dl (12.0-16.0); Imm Gran Abs Auto 0.01 X10*3/uL (0.00-0.03); Imm Gran Pct Auto 0.2 % (0.0-0.4); Lymphocytes Absolute Auto 2.6 X10*3/uL (1.2-4.9); Lymphocytes Percent Auto 40.7 % (20-40); Mean Corpuscular HGB Conc 33.9 g/dl (31.0-35.0); Mean Corpuscular Hemoglobin 30.4 pg (27.0-33.0); Mean Corpuscular Volume 89.6 fL (80.0-98.0); Mean Platelet Volume 8.8 fL (9.4-12.3); Monocytes Absolute Auto 0.5 X10*3/uL (0.1-1.2); Monocytes Percent Auto 8.1 % (2-11); Neutrophils Absolute Auto 3.1 x10*3/uL (2.0-8.3); Neutrophils Percent Auto 47.2 % (45-73); Platelet Count 323 X10*3/uL (160-400); Red Blood Count 4.25 X10*6/uL (4.20-5.50); Red Cell Distribution Width 12.7 % (11.0-16.0); White Blood Count 6.4 X10*3/uL (4.8-10.8)
[2022-11-03 10:48] LABS: Appearance Urine Clear; Color Urine Yellow; Glucose Urine UA Negative (Negative); Leukocyte Esterase Urine Negative (Negative); Nitrite Urine Negative (Negative); PH 7.5 (5.0-9.0); UMIC TRIGGER UACC YES; Urine Blood Small (1+) (Negative); Urine Ketones Negative (Negative); Urine Protein Negative (Neg-Trace)
[2022-11-03 10:54] LABS: Bacteria Urine None Seen (None Seen); Hyaline Casts Urine 0-2 /LPF (0-2); Squamous Epithelial Cell Urine 0-2 /HPF (0-2); WBC Urine 0-5 /HPF (0-5)
[2022-11-03 11:14] LABS: Erythrocyte Sedimentation Rate 11 MM/HR (0-20)
[2022-11-03 11:32] LABS: Alanine Aminotransferase 16 U/L (0-31); Albumin Level 4.2 g/dL (3.5-5.0); Alkaline Phosphatase 70 U/L (39-117); Anion Gap 11 (12-20); Aspartate Amino Transferase 19 U/L (5-31); Blood Urea Nitrogen 7 mg/dL (9-16); C Reactive Protein 0.12 mg/dL (< or = 0.50); Calcium 9.3 mg/dL (8.4-10.2); Carbon Dioxide 24 mmol/L (22-29); Chloride 108 mmol/L (96-108); Cholesterol 226 mg/dL; Estimated Glomerular Filt Rate > 60; Glucose Fasting 88 mg/dL (60-99); HDL Cholesterol 49 mg/dL; LDL Cholesterol Calculated 161 mg/dl; Rheumatoid Factor < 13.0 IU/mL (<15.0); Sodium 139 mmol/L (135-145); Total Protein 6.7 g/dL (6.5-8.0); Triglycerides 82 mg/dL
[2022-11-03 11:57] LABS: TSH reflex Free T4 0.72 uIU/mL (0.32-4.0); Vitamin B12 326 pg/mL (200-900); Vitamin D 25-OH Total 7.1 ng/mL (>30)
[2022-11-04 13:40] LABS: Anti Nuclear Antibody Screen NEGATIVE (NEGATIVE)
[2022-11-05 10:19] LABS: Lyme Abs Screen <0.90 index
== END 2022-11-03 10:01 | disposition home or self-care (01) ==
LOC: HO.XRAY 10:00
PROVIDERS: PCP Internal Medicine; Visit Provider Internal Medicine
DX: Z00.00 Encounter for general adult medical examination without abnormal findings (principal); R35.0 Frequency of micturition; R30.0 Dysuria; M54.2 Cervicalgia; M54.50 Low back pain, unspecified; R53.83 Other fatigue; M53.3 Sacrococcygeal disorders, not elsewhere classified; R51.9 Headache, unspecified; M25.50 Pain in unspecified joint; E78.00 Pure hypercholesterolemia, unspecified; R20.2 Paresthesia of skin; E55.9 Vitamin D deficiency, unspecified
CPT/HCPCS: 36415; 72040; 72100; 72202; 80053; 80061; 81001; 82306; 82607; 82746; 84443; 85025; 85652; 86038; 86039; 86140; 86431; 86617; 86618

== ENCOUNTER 2022-11-05 22:28 | Emergency (ER) | payer OTHER, SELFPAY ==
[2022-11-05 22:55] VITALS: BP 132/72; PULSE 64; RESP 16; TEMP 36.8; O2SAT 99; BMI 26.8
[2022-11-06 04:53] VITALS: BP 174/85; PULSE 72; RESP 15; TEMP 36.6; O2SAT 100
[2022-11-06] MEDS: dexAMETHasone 6 MG TABLET PO (08:07)
[2022-11-06] MEDS: Ketorolac Tromethamine 30 MG/ML VIAL IM (08:07)
[2022-11-06] MEDS: Acetaminophen 325 MG TABLET 975 MG PO (08:07)
[2022-11-06] MEDS: Cyclobenzaprine HCl 10 MG TABLET PO (08:07)
[2022-11-06 10:23] VITALS: BP 155/84; PULSE 62; RESP 18; TEMP 36.9; O2SAT 99
--- NOTE | 2022-11-06 10:24 | PC.NURSE ---
patient a&ox3, vss, pt c/o 04/13 lower back pain, pt moved to room emc 4 for hospital convenience
--- NOTE | 2022-11-06 10:55 | ED.GENADULT ---
HPI - General Adult General Chief complaint: Back Pain/Injury Stated complaint: back pain for 4 days, cant walk Time Seen by Provider: 11/06/22 07:23 Source: patient Mode of arrival: ambulatory Limitations: no limitations History of Present Illness HPI narrative: 37-year-old female with no major medical problems presents with acute severe left low back pain. Symptoms started approximately 4 days ago. She denies any fall or injury. She reports having tested COVID approximately 2 weeks ago and then she returned to work recently. Since she has developed progressively worse back pain to the point it is a 10/10. The pain radiates down her left leg. She denies any loss of bowel or bladder control. She denies any saddle paresthesia. She denies any weakness. Her symptoms are worse with ambulation and certain positions. There are better with rest. She has attempted some [id number] analgesics without a significant improvement. Related Data Previous Rx's Medication Instructions Recorded albuterol sulfate 90 mcg/actuation 2 puff inhalation Q4-6H PRN 04/17/21 aerosol inhaler shortness of breath or wheezing #6.7 grams ibuprofen 400 mg tablet 400 mg PO Q8H PRN fever or pain 10/28/22 #30 tabs tizanidine 4 mg tablet 4 mg PO Q8H PRN muscle spasticity 11/03/22 10 days #30 tabs cyclobenzaprine 10 mg tablet 10 mg PO TID PRN muscle spasm #10 11/06/22 tabs ibuprofen 600 mg tablet 600 mg PO Q8H PRN pain #14 tabs 11/06/22 methylprednisolone 4 mg tablets in 4 mg PO DAILY #21 ea 11/06/22 a dose pack (Medrol (Hemant)) Allergies Allergy/AdvReac Type Severity Reaction Status Date / Time oxycodone [Percocet] Allergy Severe anaphylaxis, Verified 11/03/22 09:31 rash Penicillins [PENICILLINS] Allergy Intermediate SOB HIVES Verified 11/03/22 09:31 Review of Systems Review of Systems: Yes all other systems are reviewed and are negative Constitutional: Constitutional: Reports no additional constitutional complaints Eyes: Eyes: Reports as per HPI and Reports no additional eye complaints ENT: Reports system reviewed and no additional complaints, except as documented Cardiovascular: Cardiovascular: Reports no additional cardiovascular complaints Respiratory: Respiratory: Reports no additional respiratory complaints Gastrointestinal: Gastrointestinal: Reports no additional gastrointestinal complaints Genitourinary: Genitourinary: Reports no additional female genitourinary complaints Musculoskeletal: Musculoskeletal: Reports no additional musculoskeletal complaints and Reports back pain Integumentary/Breasts: Skin/Breast: Reports system reviewed and no additional complaints, except as docu Neurologic: Reports system reviewed and no additional complaints, except as documented Psychiatric: Psychiatric: Reports no additional psychiatric complaints Endocrine: Endocrine: Reports no additional endocrine complaints Hematologic/Lymphatic: Hematologic/Lymphatic: Reports no additional hematologic/lymphatic complaints Allergic/Immunologic: Allergic/Immunologic: Reports no additional allergic/immunologic complaints [facility] Past Medical History Medical History Anxiety Asthma Irritable bowel syndrome (IBS) Overweight (BMI 25.0-29.9) Surgical History History of section History of tubal ligation Family History Family History Father CVD (cardiovascular disease) Depression Myocardial infarction Mother Myocardial infarction Depression Hypertension CVD (cardiovascular disease) Maternal Grandmother Lung cancer Brother In good health Son In good health Daughter In good health Social History Social History Housing: Apartment Alcohol intake: never Patient Tobacco Use Status: Former Tobacco user Quit Date: February 2022 Cigarettes Per Day: 5 Second Hand Smoke Exposure: Yes Advance Directives: No Patient : No service: No Current occupational status: employed and student Cognitive needs: No Hearing needs: No Vision needs: No Physical Exam ED Vital Signs: Vital Signs - 24 hr 11/05/22 22:55 11/06/22 04:53 11/06/22 10:23 Temperature 98.2 F 98 F 98.5 F Pulse Rate 64 72 62 Respiratory Rate 16 15 18 Blood Pressure 132/72 174/85 H 155/84 H Pulse Oximetry 99 100 99 Oxygen Delivery Method Room Air Room Air Room Air BMI result Body Mass Index 26.8 Const General: cooperative, healthy appearing and no acute distress; No comfortable Orientation/consciousness: patient oriented x3 HENMT Head: Yes normal to inspection Eyes General: appearance normal, both eyes and all related structures Neck Neck: Yes normal visual inspection and Yes full ROM Resp Effort & Inspection: normal respiratory effort Auscultation: clear to auscultation bilaterally Cardio Rate: regular rate Rhythm: regular rhythm GI Palpation (GI): Soft to palpation and nontender General: Yes no CVA tenderness Back/Spine/Pelvis Back: no CVA tenderness Cervical Spine: normal cervical lordosis and cervical ROM normal Thoracic/Lumbar Spine: thoracic and lumbar spine normal to inspection, lumbar spinal tenderness (Paraspinous) and No straight leg raise positive Skin General skin exam: no rashes or lesions noted Neuro General: patient oriented x3, no focal motor deficits, CN's II-XI intact bilaterally and deep tendon reflexes 2+ bilaterally Motor exam (neuro): 5/5 motor strength present throughout Extrem General: Yes normal to inspection Course Course Course Narrative: 37-year-old female presents with acute low back pain radiating to her left leg. She is otherwise neurologically intact. She was extremely uncomfortable upon arrival. She had no midline tenderness. She has no fevers or history of intravenous drug abuse suggest epidural abscess. She had no midline tenderness. She has no evidence of acute cauda equina syndrome such as saddle paresthesias, loss of bowel or bladder control. I suspect this is musculoskeletal plus or minus radiculopathy. While in the emergency department she received analgesics, muscle relaxers, steroids. She is significantly improved and her pain is much much lower. She is comfortable with being discharged at this time. I discussed all results and discharge plans with the patient. Medications Administered Discontinued Medications Generic Name Dose Route Start Last Admin Trade Name Freq PRN Reason Stop Dose Admin Acetaminophen 975 mg 11/06/22 07:29 11/06/22 08:07 Acetaminophen 325 Mg Tablet PO 11/06/22 07:30 975 mg ONCE ONE Administration Cyclobenzaprine HCl 10 mg 11/06/22 07:29 11/06/22 08:07 Cyclobenzaprine Hcl 10 Mg Tablet PO 11/06/22 07:30 10 mg ONCE ONE Administration Dexamethasone 6 mg 11/06/22 07:29 11/06/22 08:07 Dexamethasone 6 Mg Tablet PO 11/06/22 07:30 6 mg ONCE ONE Administration Ketorolac Tromethamine 30 mg 11/06/22 07:29 11/06/22 08:07 Ketorolac Tromethamine 30 Mg/Ml Vial IM 11/06/22 07:30 30 mg ONCE ONE Administration Medical Decision Making Medical Decision Making [facility] Narrative: [age] year old female presents with low back pain radiating to left leg. Symptoms started approximately 3-4 days ago. She has no injuries or falls. Examination was unremarkable with exception she appeared uncomfortable and she had some left paraspinous tenderness. There is no midline tenderness. There is no evidence of injury. Differential Diagnosis Differential Diagnoses: The differential diagnosis associated with the presentation includes (Lumbar radiculopathy, musculoskeletal back pain, low back pain, strain, strain) Lumbar radiculopathy Admission/Observation Consideration of admission/observation: Escalation of care including admission/observation considered Prescription Management I considered prescription management with: Pain Medication Discharge Plan Discharge Clinical Impression: Acute left lumbar radiculopathy Patient Disposition: Home, Self-Care Instructions: Acute Low Back Pain (ED), Lumbar Radiculopathy (ED) Prescriptions: New methylprednisolone [Medrol (Hemant)] 4 mg tablets,dose pack 4 mg PO DAILY Qty: 21 0RF ibuprofen 600 mg tablet 600 mg PO Q8H PRN (Reason: pain) Qty: 14 0RF cyclobenzaprine 10 mg tablet 10 mg PO TID PRN (Reason: muscle spasm) Qty: 10 0RF No Action tizanidine 4 mg tablet 4 mg PO Q8H PRN (Reason: muscle spasticity) 10 Days Qty: 30 1RF albuterol sulfate 90 mcg/actuation HFA aerosol inhaler 2 puff inhalation Q4-6H PRN (Reason: shortness of breath or wheezing) Qty: 6.7 0RF ibuprofen 400 mg tablet 400 mg PO Q8H PRN (Reason: fever or pain) Qty: 30 0RF Stand Alone Forms: Work/School Release Print Language: German
== END 2022-11-06 11:34 | disposition home or self-care (01) ==
PROVIDERS: Emergency Provider Emergency Medicine; PCP Internal Medicine
DX: M54.16 Radiculopathy, lumbar region (principal); M54.50 Low back pain, unspecified
CPT/HCPCS: 96372; 99284; J1885; J8540

== ENCOUNTER 2022-12-11 12:50 | Outpatient (REF) | payer OTHER, SELFPAY ==
--- NOTE | ~2022-12-11 | MR_ITS ---
EXAMINATION: MR LUMBAR SPINE WITHOUT CONTRAST CLINICAL INFORMATION: Low back pain, unspecified. COMPARISON: None TECHNIQUE: MRI of the lumbar spine was obtained using routine sequences without contrast. FINDINGS: The lumbar vertebral bodies maintain normal height. L5-S1 there is mild retrolisthesis and moderate disc height loss. No additional significant disc height loss is seen. There is no bone marrow edema. The distal spinal cord appears normal. The conus medullaris terminates normally at L1. The extraspinal soft tissues are within normal limits. SPINAL LEVELS: L1-L2: No posterior disc abnormality. No spinal canal or neural foraminal stenosis. L2-L3: Shallow left subarticular protrusion mildly narrowing the subarticular zone. No spinal canal or neural foraminal stenosis. L3-L4: No posterior disc abnormality. No spinal canal or neural foraminal stenosis. L4-L5: No posterior disc abnormality. No spinal canal or neural foraminal stenosis. L5-S1: Disc bulging with left subarticular extrusion resulting in compression of the traversing left S1 nerve root. No significant spinal canal stenosis. Mild left neural foraminal stenosis. MR/MR lumbar spine wo con IMPRESSION: 1. At L5-S1 there is left subarticular protrusion resulting in compression of the traversing left S1 nerve root. 2. At L2-L3 there is shallow left subarticular protrusion without nerve root compression.
== END 2022-12-11 12:51 | disposition home or self-care (01) ==
LOC: HO.MRI 12:50
PROVIDERS: PCP Internal Medicine; Visit Provider Internal Medicine
DX: M54.50 Low back pain, unspecified (principal); M54.10 Radiculopathy, site unspecified; R29.898 Other symptoms and signs involving the musculoskeletal system
CPT/HCPCS: 72148

== ENCOUNTER → 2023-01-13 14:52 | Outpatient (BNVA) | payer OTHER, SELFPAY | PROVIDERS: PCP Internal Medicine; Visit Provider Physician Assistant | DX: M51.26 Other intervertebral disc displacement, lumbar region (principal) | CPT/HCPCS: 99202 ==

== ENCOUNTER 2023-02-05 05:52 | Day surgery (SDC) | payer OTHER, SELFPAY ==
--- NOTE | 2023-01-29 | ECG_ITS ---
Test Reason : PREOP Blood Pressure : / mmHG Vent. Rate : 074 BPM Atrial Rate : 074 BPM P-R Int : 146 ms QRS Dur : 078 ms QT Int : 360 ms P-R-T Axes : 041 068 041 degrees QTc Int : 399 ms Normal sinus rhythm Normal ECG When compared with ECG of 28-OCT-2022 15:55, Vent. rate has increased BY 26 BPM Referred By: Dorota Lama Electronically Signed By:Jaden Colunga
[2023-01-29 12:00] VITALS: BP 137/71; PULSE 78; RESP 16; O2SAT 98; BMI 27.6
--- NOTE | 2023-01-29 12:22 | P.CONAN_ITS ---
Documented by User: Dorota Lama NP 02/04/23 10:55 HPI - Anesthesia Eval Consult details Narrative: 37yo F for Left L5-S1 Lumbar Microdiscectomy Covid ~01/15/23. Still with clear, productive cough. Lungs CTA and O2 sat WNL at [facility] Active Problems Active Problems: All Active Problems (Updated 01/13/23 @ 15:36 by JACOB Boykin) Cyst of right breast (Acute) Annual physical exam (Acute) Neck pain (Acute) Smoker (Acute) Viral respiratory illness (Acute) Fatigue (Acute) Urinary frequency (Acute) Headache (Acute) Pain of left sacroiliac joint (Acute) Paresthesia (Acute) Arthralgia (Acute) Severe low back pain (Acute) Radicular pain of left lower extremity (Acute) Lumbar disc herniation (Acute) Overweight (BMI 25.0-29.9) (Acute) Irritable bowel syndrome (IBS) (Acute) Asthma (Acute) Past Medical History Medical History (Updated 01/13/23 @ 15:36 by JACOB Boykin) Anxiety Asthma Irritable bowel syndrome (IBS) Overweight (BMI 25.0-29.9) Family History Family History Father CVD (cardiovascular disease) Depression Myocardial infarction Mother Myocardial infarction Depression Hypertension CVD (cardiovascular disease) Maternal Grandmother Lung cancer Brother In good health Son In good health Daughter In good health Family history of problems with anesthesia: No Surgical History Surgical History (Updated 01/29/23 @ 11:59 by Marianne Abarca RN) History of section History of tubal ligation History of Problems with Anesthesia: No Social History Social History Housing: Apartment 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 If so, by whom?: No Are you DNR?: No Advance Directives: No Advance Directives Information Provided: Yes Advance Directives on File: No Recently lost weight without trying: No Nutrition Risks: No Nutritional Risk Patient : No FDLMP: 12/30/2022 : No Poor oral hygiene: No service: No Current occupational status: employed and student Cognitive needs: No Hearing needs: No Vision needs: No Narrative Narrative: COVID 2 weeks ago, still with cough, productive clear No CP/SOB with >4 mets Meds Allergies Allergy/AdvReac Type Severity Reaction Status Date / Time oxycodone [Percocet] Allergy Severe anaphylaxis, Verified 01/29/23 11:57 rash Penicillins [PENICILLINS] Allergy Intermediate SOB HIVES Verified 01/29/23 11:57 rash Exam Exam Date and Time: January 29, 2023 1222 Height,Weight and Vital Signs: Height 5 ft 1 in Weight 66.3 kg Last Vital Signs Pulse 78 01/29/23 12:00 Resp 16 01/29/23 12:00 BP 137/71 01/29/23 12:00 Pulse Ox 98 01/29/23 12:00 O2 Del Method Room Air 01/29/23 12:00 Pertinent Lab Results Pertinent Lab Results: Laboratory Tests 11/03/22 11/03/22 10:16 10:16 WBC 6.4 Hgb 12.9 Hct 38.1 Plt Count 323 Sodium 139 Potassium 4.0 Chloride 108 Carbon Dioxide 24 BUN 7 L Creatinine 0.67 Narrative Narrative: EKG 01/2023 Vent. Rate : 074 BPM ? ? Atrial Rate : 074 BPM ?? P-R Int : 146 ms? QRS Dur : 078 ms ? ? QT Int : 360 ms ? ? ? P-R-T Axes : 041 068 041 degrees ?? QTc Int : 399 ms ? Normal sinus rhythm Normal ECG When compared with ECG of 28-OCT-2022 15:55, Vent. rate has increased BY? 26 BPM Airway Mallampati Class: II TM Dist: >3cm Neck ROM: Full Loose/Missing/Broken Teeth: Yes (Broken molar x 1) Heart: RRR Lungs: CTAB Assessment and Plan Assessment Anesthesia Assessment: Anesthesia Plan Discussed and PAT Visit Final Anesthetic Review Family History of Problems with Anesthesia: No History of Problems with Anesthesia: No Documented by User: Tomer Hanna MD 02/05/23 07:25 PMFSH Past Medical History Medical History (Updated 01/13/23 @ 15:36 by JACOB Boykin) Anxiety Asthma Irritable bowel syndrome (IBS) Overweight (BMI 25.0-29.9) Family History Family History Father CVD (cardiovascular disease) Depression Myocardial infarction Mother Myocardial infarction Depression Hypertension CVD (cardiovascular disease) Maternal Grandmother Lung cancer Brother In good health Son In good health Daughter In good health Surgical History Surgical History (Updated 01/29/23 @ 11:59 by Marianne Abarca RN) History of section History of tubal ligation Social History Social History Housing: Apartment 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 If so, by whom?: No Are you DNR?: No Advance Directives: No Advance Directives Information Provided: Yes Advance Directives on File: No Recently lost weight without trying: No Nutrition Risks: No Nutritional Risk Patient : No FDLMP: 12/30/2022 : No Poor oral hygiene: No service: No Current occupational status: employed and student Cognitive needs: No Hearing needs: No Vision needs: No Meds Allergies Allergy/AdvReac Type Severity Reaction Status Date / Time oxycodone [Percocet] Allergy Severe anaphylaxis, Verified 01/29/23 11:57 rash Penicillins [PENICILLINS] Allergy Intermediate SOB HIVES Verified 01/29/23 11:57 rash Assessment and Plan Assessment Anesthesia Assessment: Chart Reviewed Final Anesthetic Review NPO: Yes ASA Class: II Final Preanesthetic Review: No Changes in Pt Med Stat, Meds/Allgs Chart Reviewed, Consent Obtained/Reviewed and Anes Risks/Benef Reviewed Patient Risk: Intermediate Procedure Risk: Intermediate Anesthetic Plan Anesthetic Plan: GA Disposition: Standard PACU
[2023-02-05] VITALS (8 sets, daily range): BP systolic 134–160; BP diastolic 80–92; PULSE 50–77; RESP 14–18; TEMP 36.1–36.6; O2SAT 97–100; BMI 28.3
--- NOTE | ~2023-02-05 | FL_ITS ---
EXAMINATION: XR FLUOROSCOPY WITH IMAGES CLINICAL INFORMATION: L5-S1 microdiscectomy COMPARISON: None available. TECHNIQUE: Fluoroscopy Supervised By: Dr. Song. Fluoroscopy Time: 0. Cumulative Dose: 2 mGy-cm DAP: 0.3 Gy-cm2 Images: 1. FINDINGS: Single lateral interoperative image demonstrates instrument placement projecting over the posterior L5-S1 disc space. FL/FL guidance in OR IMPRESSION: Fluoroscopy guidance for lumbar spine surgery.
[2023-02-05] MEDS: Gabapentin 300 MG CAPSULE PO (06:36)
[2023-02-05] MEDS: Lactated Ringers 1,000 ML 100 ML IVCONT (06:36)
[2023-02-05] MEDS: methocarbamoL 750 MG TABLET PO ×2 (06:36)
[2023-02-05] MEDS: vancomycin HCL 1,000 MG in 0.9 % Sodium Chloride 250 ML 270 MG IV (06:37)
--- NOTE | 2023-02-05 09:27 | P.DS_ITS ---
DS: Providers Provider Date of Service: 02/05/23 Date of discharge: 02/05/23 Primary care physician: Alessio Hickman MD Admitting clinician: Tarun Song DS: Diagnosis Discharge Diagnosis (1) Lumbar disc herniation: Status: Acute DS: Summary Time Spent with Patient Time attestation: Total time managing care of this patient today ____ minutes. Discharge coordination time: Less than 30 minutes Quality: Safe Use of Opioids Does Pt have an Active Cancer Diagnosis on the Problem List?: No Quality: Stroke Does the patient have a stroke diagnosis?: No Physical Exam Vital Signs: Vital Signs: Last Vital Signs Temp 96.9 F 02/05/23 06:28 Pulse 68 02/05/23 06:28 Resp 18 02/05/23 06:28 BP 139/87 02/05/23 06:28 Pulse Ox 97 02/05/23 06:28 O2 Del Method Room Air 02/05/23 06:28 BMI result Body Mass Index 28.3 Discharge Plan Discharge Patient Disposition: Home, Self-Care Referrals: Alessio Hickman MD [Primary Care Provider] - 1 Week Discharge Medications: New tramadol 50 mg tablet See Rx Instructions .ROUTE .COMPLEX PRN (Reason: pain) Qty: 30 0RF Rx Instructions: 1-2 tabs po q6 hours prn pain partial fill upon request Continued albuterol sulfate 90 mcg/actuation HFA aerosol inhaler 2 puff inhalation Q4-6H PRN (Reason: shortness of breath or wheezing) Qty: 6.7 0RF Discharge Orders: Discharge Order (Routine); Ordered 02/05/23 Ordered By: Jordan Lawrence Diet: Advance to usual diet Activity on Discharge: As tolerated Activity Restrictions/Additional Instructions: After your spinal surgery we ask you to observe the following restrictions/guidelines: Activity: It is normal to feel some discomfort as you increase your activity, but that will improve with time. We ask you avoid heavy lifting or acitivities that cause pain. As a general rule, 8lbs is a safe limit for lifting right after surgery. Walk as much as you feel comfortable but not to exhaustion. You will feel extra tired the first few days after surgery. Stay well hydrated. It is OK to walk up and down stairs You may return to driving when you are off narcotics (such as vicodin, oxycodone, dilaudid, etc), and you are back to normal functional capacity. If you have any concerns please check with office before driving. Return to work is specific to each patient and each surgery, so please speak with your doctor/PA at first follow up. Please bring paperwork such as FMLA at that time if you need it filled out. Medications: We will give you a short supply of narcotics after surgery (usually one weeks wo rth). If you need more please call the office but do not use more than prescribed. You will need to give our office 48 hours notice if you need narcotics refilled and we do not fill narcotics on weekends or evenings. If you are on a narcotic, it is a good idea to take a stool softener such as colace or senna to avoid constipation If you take blood thinner such as aspirin, Plavix, Coumadin, Effient, Eliquis etc for conditions such as Afib, DVT, Pulmonary embolus, coronary disease, stents etc please speak with your surgeon about specific details as to when you can resume these medications. You can resume NSAIDs on post op day 1 (eg: Motrin, Naproxen, etc). Follow up: Please call the office, , after surgery to arrange a 3 week follow up for wound check. Wound Care: You may remove your dressing on the first day after surgery. You may leave open to air. Please do not remove the steri strips underneath. they will fall off on their own in one week. IT IS NORMAL FOR THE WOUND TO OOZE OR BE BLOODY FOR A FEW DAYS AFTER SURGERY. IF THIS HAPPENS JUST PLACE NEW DRESSING OVER IT TO AVOID STAINING CLOTHES. You may shower on post op day # 1 We ask that you do not let the water soak the wound. If it does get wet, just towel dry lightly. Please do not scrub your incision or place any type of chemical/ointment on the wound. No tub baths, pools or jacuzzis for one month. If you have any leaking or redness from your wound, or fevers, please call office
--- NOTE | 2023-02-05 09:28 | P.OP_ITS ---
Operative Note Operative Note Date of Service: 02/05/23 Narrative: Preoperative diagnosis: L5-S1 lumbar radiculopathy due to disc herniation Postoperative diagnosis: Same Procedure: L5-S1 lumbar microdiskectomy with microscope Surgeon: Tarun Song MD, PhD Riddler Operator: Jordan Villeda this 37-year-old female who is suffering from left leg pain. MRI shows a disc herniation L5-S1 compressing the left S1 nerve root. The patient was offered a lumbar microdiskectomy to decompress the nerve root. The procedure complications were explained. The patient was consented. The patient was brought to the operating room and endotracheally intubated. The patient was t urned in a prone position on the Arnav frame. Prepping and draping was done followed by time-out. A mid lumbar incision was made followed by release of the paravertebral muscles on the left side to expose the L5-S1 interspace. An intraoperative x-rays obtained to confirm the correct level. The microscope was brought in. A L5 laminotomy was done followed by opening of the flavum ligament. The S1 nerve root was identified and retracted medially to expose the L5-S1 disc space. I retracted the S1 nerve root medially and was expecting a large disc fragment medially from the nerve root. However this was not the case. I was able to retrieve some fragments but not the amount that I was expecting. X-ray confirmed the correct disc level. The nerve root was decompressed sufficiently. Hemostasis was done. The microscope was removed. Marcaine was injected intramuscularly.The incision was closed in two layers. Steri-Strips used to approximate seizure. An op-site were taken there was used to cover the incision. All sponge and needle counts were correct. Patient was extubated and transported in stable condition to recovery room. This procedure was done with the aid of a physician housing assistant property manager who performed the initial exposure until the microscope was brought in and performed the closure of the incision. Anesthesia: General Blood loss: 20 mL Complications: None Specimen: None Disposition: Discharge home
== END 2023-02-05 11:05 | disposition home or self-care (01) ==
PROVIDERS: PCP Internal Medicine; Visit Provider Neurological Surgery
PROC: (CPT 63030; principal; 2023-02-05 07:30)
DX: M51.26 Other intervertebral disc displacement, lumbar region (principal); M79.605 Pain in left leg; R20.2 Paresthesia of skin; Z91.81 History of falling; F41.1 Generalized anxiety disorder; J45.909 Unspecified asthma, uncomplicated; K58.9 Irritable bowel syndrome, unspecified; Z79.899 Other long term (current) drug therapy; Z99.89 Dependence on other enabling machines and devices; Z88.0 Allergy status to penicillin; Z88.8 Allergy status to other drugs, medicaments and biological substances; Z87.891 Personal history of nicotine dependence
CPT/HCPCS: 63030; 93005; J0131; J1100; J1885; J2250; J2405; J3010; J3370

== ENCOUNTER → 2023-02-27 13:43 | Outpatient (BNVA) | payer OTHER, SELFPAY | PROVIDERS: PCP Internal Medicine; Visit Provider Physician Assistant | DX: Z48.89 Encounter for other specified surgical aftercare (principal) | CPT/HCPCS: 99212 ==

== ENCOUNTER 2023-03-31 09:47 | Outpatient (REF) | payer OTHER, SELFPAY ==
[2023-04-01 09:45] LABS: BV Int Neg Control Negative (Negative); BV Int Pos Control Positive (Positive)
== END 2023-03-31 09:48 | disposition home or self-care (01) ==
LOC: HO.LNP 09:47
PROVIDERS: PCP Internal Medicine; Visit Provider Advanced Practice Midwife
DX: Z20.2 Contact with and (suspected) exposure to infections with a predominantly sexual mode of transmission (principal); Z98.891 History of uterine scar from previous surgery; Z98.51 Tubal ligation status
CPT/HCPCS: 87480; 87510; 87660; 99202

== ENCOUNTER 2023-03-31 10:55 | Outpatient (REF) | payer OTHER, SELFPAY ==
[2023-03-31 15:12] LABS: CT PCR NOT DETECTED (Not Detect.); NG PCR NOT DETECTED (Not Detect.)
[2023-04-01 04:31] LABS: Syphilis Screen Nonreactive (Nonreactive)
[2023-04-01 04:44] LABS: HBsAGNum1 0.45 S/CO (0.00-0.99); HIV AB/AG Nonreactive (Nonreactive); HIV Num 1 0.05 S/CO (0.00-0.99); Hepatitis B Surface Antigen Negative (Negative); ~HepC Num1 0.07 S/CO (0.00-0.79); ~Hepatitis C Antibody Nonreactive (Nonreactive)
== END 2023-03-31 10:56 | disposition home or self-care (01) ==
LOC: HO.LAB 10:55
PROVIDERS: PCP Internal Medicine; Visit Provider Advanced Practice Midwife
DX: Z98.891 History of uterine scar from previous surgery (principal); Z98.51 Tubal ligation status; Z20.2 Contact with and (suspected) exposure to infections with a predominantly sexual mode of transmission
CPT/HCPCS: 0353U; 86780; 86803; 87340; 87389

== ENCOUNTER 2023-08-31 10:22 | Outpatient (REF) | payer OTHER, SELFPAY ==
[2023-08-31 11:47] LABS: Appearance Urine Turbid; Color Urine Yellow; Glucose Urine UA Negative (Negative); Leukocyte Esterase Urine Negative (Negative); Nitrite Urine Negative (Negative); PH 7.5 (5.0-9.0); UMIC TRIGGER UACC YES; Urine Blood Large (3+) (Negative); Urine Ketones Negative (Negative); Urine Protein Trace mg/dL (Neg-Trace)
[2023-08-31 12:02] LABS: Bacteria Urine 1+ (None Seen); Hyaline Casts Urine 0-2 /LPF (0-2); RBC Urine >20 /HPF (0-2); Squamous Epithelial Cell Urine 0-2 /HPF (0-2); WBC Urine 0-5 /HPF (0-5)
== END 2023-08-31 10:23 | disposition home or self-care (01) ==
LOC: HO.LAB 10:22
PROVIDERS: PCP Internal Medicine; Visit Provider Internal Medicine
DX: R30.0 Dysuria (principal); R35.0 Frequency of micturition
CPT/HCPCS: 81001

== ENCOUNTER 2023-09-17 09:23 | Outpatient (AMB) | payer OTHER, SELFPAY ==
--- NOTE | 2023-09-17 09:33 | MHC.OFFVIS ---
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 Chainstitch Binder Required: No Information Interpreted: clinical only Fire Pot Operator: Fire Pot Operator Present Allergies oxycodone [Percocet] Allergy (Severe, Verified 09/17/23 09:37) anaphylaxis, rash Penicillins [PENICILLINS] Allergy (Intermediate, Verified 09/17/23 09:37) SOB HIVES rash Medication List - Last Reconciled 09/17/23 by Alexandra Feliciano CNM albuterol sulfate 90 mcg/actuation 2 puffs inhalation Q4-6H PRN Is last menstrual period known: Yes Last menstrual period: 09/10/23 Patient : No Do you need a note to return to daycare/school/sports/work: No HPI 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 She has no real worries about STIs but her significant other lives in [place] and they do not live together so she would like to get checked but she is not worried enough for blood work at this point. She recently had a UTI around the beginning of September and was treated with antibiotics by her primary care provider and feels better she is trying to drink enough water. She has 4 children 2 of whom are grown and the other 2 are 11 and 9. Her mother in June so this will be there without her she will be spending it with her kids and her father. Turns 38 on [employer]. She is working on her GED and only has math to do [place] it [place] really good. 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 at home: Yes (8+10 year old, mom will help post-op) Do you presently have visiting nurse or other home services: No Alcohol intake: never Patient Tobacco Use Status: Former Tobacco user Quit Date: 02/2022 Tobacco use type: Cigarette Cigarettes Per Day: 5 Years Smoked: 17 Second Hand Smoke Exposure: Yes service: No Current occupational status: employed and student Cognitive needs: No Hearing needs: No Vision needs: No Female Reproductive History Menstrual Age of Menarche: 10 Duration of menses: 3-5 days Date of last menstrual period: 09/10/23 control method: permanent sterilization Total pregnancies: 4 Full term: 4 History of abnormal pap smear: No (2017,neg.) Physical Exam Vital Signs: Last Vital Signs BP 140/80 H 09/17/23 09:34 BMI result Body Mass Index 27.1 Const General: healthy appearing, comfortable, no acute distress, well developed and alert Nutritional Appearance: average body habitus Orientation/consciousness: patient oriented x3 Limitations: no limitations HEENT Head: Yes normocephalic Neck Neck: Yes normal visual inspection Chest Chest palpation & inspection: normal inspection of the chest Breast/axilla inspection: normal inspection of the breasts and normal inspection of the axillae Breast/axilla palpation: normal palpation of the breasts and normal palpation of the axillae Resp Effort & Inspection: normal respiratory effort GI Inspection: Yes normal to inspection, No Abdominal wall edema and No distended Palpation (GI): Soft to palpation and nontender Other: Cervix was somewhat difficult to find because it was deep in vaginal vault. Uterus is midposition to anteverted mobile but perhaps slightly fixed from scar as well adnexa nontender not enlarged good tone with Kegel vagina very pink healthy no on do or abnormal mucus cervix appeared healthy, General: Yes bladder normal to palpation External Female Exam: normal external appearance and normal appearance of the urethra Speculum Exam - Vagina: normal appearance of the vagina, normal palpation and normal vaginal discharge Speculum Exam - Cervix: normal appearance of the cervix, normal palpation and nontender Bimanual exam- vagina & uterus: normal bimanual exam, normal palpation, uterine size normal, bladder normal to palpation, consistency normal, normal palpation, uterine mobility normal, uterine shape normal, No Cervical tenderness present, non-tender and no cervical motion tenderness Bimanual Exam- Adnexa, other: normal adnexae, no masses, normal and No adnexal tenderness Neuro General: patient oriented x3 Assessment & Plan Assessment & Plan (1) Well woman exam with routine gynecological exam: Code(s): Z01.419 - Encounter for gynecological examination (general) (routine) without abnormal findings (2) History of section: Comment: 2001 for breech Code(s): Z98.891 - History of uterine scar from previous surgery (3) History of tubal ligation: Comment: 2013 Code(s): Z98.51 - Tubal ligation status (4) Screen for sexually transmitted diseases: Code(s): Z11.3 - Encounter for screening for infections with a predominantly sexual mode of transmission (5) Cervical cancer screening: Comment: No history of abnormal Paps last Pap-2017 Pap done 09/17/2023. Code(s): Z12.4 - Encounter for screening for malignant neoplasm of cervix (6) Grieving: Comment: Her mom in June... Code(s): F43.21 - Adjustment disorder with depressed mood Plan -----Discussed in this visit the following: healthy balanced diet, regular and consistent exercise, getting recommended health screens, doing the best she can for her particular health concerns, kegel exercises, pap smear screening and followup recommendations, mammography screening and SBE, normal changes in cycles in her life stage--- . Emotional support offered for her normal grief process acknowledged the challenges. Mammogram ordered for her initial mammogram it can be done any time next year. I wished her continued success with her efforts to finish her GED. She is in good shape and eats well. Her exam was completely normal testing for STIs done as part of routine screening which she appreciates Pap smear done if this Pap smear is normal she does not need another Pap for 5 years RTC 1 year. Orders: Orders MM tomosynthesis screening BI Today F43.21 - Adjustment disorder with depressed mood, Z01.419 - Encounter for gynecological examination (general) (routine) without abnormal findings, Z11.3 - Encounter for screening for infections with a predominantly sexual mode of transmission, Z12.31 - Encounter for screening mammogram for malignant neoplasm of breast, Z12.4 - Encounter for screening for malignant neoplasm of cervix, Z98.51 - Tubal ligation status, Z98.891 - History of uterine scar from previous surgery Coding Level of Care Code Est Pt Prev Care [id number]) Diagnoses Well woman exam with routine gynecological exam Z01.419 History of section Z98.891 History of tubal ligation Z98.51 Screen for sexually transmitted diseases Z11.3 Cervical cancer screening Z12.4 Grieving F43.21
[2023-09-17 09:34] VITALS: BP 140/80; BMI 27.1
== END 2023-09-17 10:40 | disposition home or self-care (01) ==
PROVIDERS: PCP Internal Medicine; Visit Provider Advanced Practice Midwife
DX: Z01.419 Encounter for gynecological examination (general) (routine) without abnormal findings (principal); Z98.891 History of uterine scar from previous surgery; Z98.51 Tubal ligation status; Z11.3 Encounter for screening for infections with a predominantly sexual mode of transmission; Z12.4 Encounter for screening for malignant neoplasm of cervix; F43.21 Adjustment disorder with depressed mood
CPT/HCPCS: 99395

== ENCOUNTER 2023-09-17 09:23 | Outpatient (REF) | payer OTHER, SELFPAY ==
[2023-09-17 14:32] LABS: CT PCR NOT DETECTED (Not Detect.); NG PCR NOT DETECTED (Not Detect.)
[2023-09-18 13:44] LABS: BV Int Neg Control Negative (Negative); BV Int Pos Control Positive (Positive)
[2023-09-24 23:07] LABS: HPV mRNA E6/E7 rflx Not Detected (Not Detected)
== END 2023-09-17 09:24 | disposition home or self-care (01) ==
LOC: HO.LAB 09:23
PROVIDERS: PCP Internal Medicine; Visit Provider Advanced Practice Midwife
DX: Z01.419 Encounter for gynecological examination (general) (routine) without abnormal findings (principal); Z11.51 Encounter for screening for human papillomavirus (HPV); Z20.2 Contact with and (suspected) exposure to infections with a predominantly sexual mode of transmission; F43.21 Adjustment disorder with depressed mood; Z98.51 Tubal ligation status
CPT/HCPCS: 0353U; 87480; 87510; 87624; 87660; 88142; 99395

== ENCOUNTER 2023-11-04 09:20 | Outpatient (AMB) | payer OTHER, SELFPAY ==
[2023-11-04 09:23] VITALS: BP 138/80; PULSE 69; O2SAT 99; BMI 27.6
--- NOTE | 2023-11-04 09:23 | MHC.PC.OV ---
Vital Signs 11/04/23 09:23 Height 5 ft Weight 141 lb 8 oz BMI 27.6 BP 138/80 Blood Pressure Location Lt brachial Position Sitting Pulse 69 Pulse Source Pulse Oximeter Pulse Oximetry (%) 99 Oxygen Delivery Method Room Air Intake Visit Reasons: Annual exam Double Cut Sawyer Required: No Accompanied by: Self / Same As Patient Allergies oxycodone [Percocet] Allergy (Severe, Verified 11/04/23 09:34) anaphylaxis, rash Penicillins [PENICILLINS] Allergy (Intermediate, Verified 11/04/23 09:34) SOB HIVES rash Medication List - Last Reconciled 11/04/23 by Alessio Hickman MD albuterol sulfate 90 mcg/actuation 2 puffs inhalation Q4-6H PRN Tobacco use date assessed: 11/04/23 Dental Screening Dental Screen Date: 11/04/23 Did you have a dental visit in the last 12 months?: Yes Did you have a dental problem in the last 6 months where you did not have access to dental care?: No Was dental information given to patient?: Patient has dentist HPI Annual exam HPI Details Patient comes in today for her annual physical examination States that she feels okay except for on and off sensation of muscle tightness and pain in her left leg (especially the lower leg anterolaterally) for the past 3 weeks Also notes that both of her knees hurt often lately and she has noticed frequent cracking in both knees Denies any recent injury or trauma to her knees or to her left leg States that her low back pain have been manageable lately and that the shooting pains that she was experiencing previously into her left leg have improved with her back surgery in February 2023 She denies any headaches or dizziness Denies any chest pains, no SOB - has not had to use her Albuterol inhaler often No nausea/vomiting, no abdominal pain No change in bowel habits noted Denies any acute urinary symptoms She is up-to-date with her gynecology exam and pap smear - last done in September 2023 States that she missed her mammogram appt earlier this month and now had it rescheduled to December 2023 FORMERLY [facility], [facility] Medical History (Updated 11/04/23 @ 10:06 by Alessio Hickman MD) Vitamin D deficiency Pure hypercholesterolemia Overweight (BMI 25.0-29.9) Irritable bowel syndrome (IBS) Anxiety Asthma Surgical History (Updated 11/04/23 @ 09:41 by Alessio Hickman MD) Hx of discectomy History of tubal ligation History of section Family History Father CVD (cardiovascular disease) Depression Myocardial infarction Mother Myocardial infarction Depression Hypertension CVD (cardiovascular disease) Maternal Grandmother Lung cancer Brother In good health Son In good health Daughter In good health Social History Housing: Apartment Are you a primary certified caregiver to a significant other at home: Yes (8+10 year old, mom will help post-op) Do you presently have visiting nurse or other home services: No Alcohol intake: never Patient Tobacco Use Status: Former Tobacco user Quit Date: 02/2022 Tobacco use type: Cigarette Cigarettes Per Day: 5 Years Smoked: 17 e-Cigarette/Vaping Use: Never Used Second Hand Smoke Exposure: Yes service: No Current occupational status: employed and student Cognitive needs: No Hearing needs: No Vision needs: No Female Reproductive History Menstrual Age of Menarche: 10 Questionnaire PHQ-9 Over the last 2 weeks, how often have you been bothered by any of the following problems? 1. Little interest or pleasure in doing things: several days 2. Feeling down, depressed, or hopeless: several days 3. Trouble falling or staying asleep, or sleeping too much: not at all 4. Feeling tired or having little energy: several days 5. Poor appetite or overeating: not at all 6. Feeling bad about yourself - or that you are a failure or have let yourself or your family down: not at all 7. Trouble concentrating on things, such as reading the newspaper or watching television: not at all 8. Moving or speaking so slowly that other people could have noticed. Or the opposite - being so fidgety or restless that you have been moving around a lot more than usual: not at all 9. Thoughts that you would be better off or of hurting yourself in some way: not at all Total score: 3 Depression Screening Interpretation: Positive Depression Screening Follow-up: Existing condition and Declines treatment Depression Screening Done: Yes 19243 - PHQ-9 Billing: Yes Source: Developed by Drs. Thai Phan, Krista Arambula, Elver Bose and colleagues, with an educational radha from [employer]. Thrive Questionnaire Date Thrive assessed: 11/04/23 I am a: Patient What is your living situation today?: I have a steady place to live Within the past 12 months, did the food you bought not last and you didn't have the money to get more?: Never true Within the past 12 months, did you worry whether your food would run out before you got money to buy more?: Never true Do you have trouble paying for medicines?: No Do you have trouble getting transportation to medical appointments?: No Do you have trouble paying your heating and electricity bill?: No Do you have trouble taking care of your child, family member or friend?: No Do you have trouble with day-to-day activities such as bathing, preparing meals, shopping, managing finances, etc.?: No Are you currently unemployed and looking for a job?: No Are you interested in more education?: No Please select the resources that you would like help with: None Currently or been in a relationship where the following occur: no concerns reported THRIVE Score: 0 AUDIT C Alcohol Use Questionnaire (AUDIT-C) 1. How often do you have a drink containing alcohol?: Monthly or less 2. How many drinks containing alcohol do you have on a typical day when you are drinking?: 1 or 2 3. How often do you have six or more drinks on one occasion?: Never Total Score: 1 Score Reviewed/Action Taken: Yes GINGER-7 AMB Questionnaire GINGER-7 Date GINGER - 7 assessed: 11/04/23 Feeling nervous, anxious, or on edge: 1 = Several days Not being able to stop or control worryin = Several days Worrying too much about different things: 1 = Several days Trouble relaxin = Several days Being so restless that it is hard to sit still: 1 = Several days Becoming easily annoyed or irritable: 1 = Several days Feeling afraid as if something awful might happen: 1 = Several days Total GINGER-7 score (0-4 normal; 5-9 mild; 10-14 moderate; 15-21 severe): 7 Source: Developed by Krista Lira, Elver Bose and colleagues, with an educational radha from [employer]. Review of Systems Const Denies chills, Denies fatigue, Denies fever(s), Denies headache(s) and Denies malaise Eyes Denies blurry vision, Denies change in vision, Denies irritation and Denies itchy eyes ENT Denies dysphagia, Denies dizziness, Denies otalgia, Denies headache(s), Denies nasal congestion, Denies neck pain, Denies odynophagia, Denies sinus pain and Denies sore throat Card Denies chest pain, Denies rapid heart rate, Denies irregular heart rhythm, Denies palpitations and Denies dyspnea Resp Denies chest congestion, Denies cough, Denies dyspnea and Denies wheezing GI Denies abdominal pain, Denies bloating, Denies constipation, Denies dysphagia, Denies heartburn, Denies diarrhea, Denies nausea, Denies odynophagia and Denies vomiting Denies hematuria, Denies urinary frequency, Denies dysuria, Denies urinary incontinence and Denies urinary urgency Musc Details: on and off pain and tightness/cramping pain in the left lower leg for the past 3 weeks Reports back pain (over the lower back (chronic) but has been manageable lately), Reports arthralgias (both knees), Denies joint swelling, Denies muscle weakness, Denies neck pain, Denies numbness and Denies tingling Skin/Breast Denies breast pain, Denies breast mass, Denies change in pigmentation, Denies lesions, Denies rash and Denies unusual bruising Neuro Denies dizziness, Denies headache(s), Denies numbness, Denies tingling and Denies paresthesias Psych Denies anxiety and Denies depression Endo Denies fatigue and Denies palpitations Gideon/Lymph Denies easy bruising Aller/Immun Denies itchy eyes and Denies wheezing Physical exam (Primary Care) Vital Signs: Last Vital Signs Pulse 69 11/04/23 09:23 BP 138/80 11/04/23 09:23 Pulse Ox 99 11/04/23 09:23 Oxygen Delivery Method Room Air 11/04/23 09:23 BMI result Body Mass Index 27.6 Tobacco/Smoking Status: Tobacco use Status Tobacco use date assessed 11/04/23 11/04/23 09:27 Patient Tobacco Use Status Former Tobacco user 11/04/23 09:27 Tobacco use type Cigarette 11/04/23 09:27 e-Cigarette/Vaping Use Never Used 11/04/23 09:27 PHQ-9: PHQ-9 Score PHQ-9: Total score 3 11/04/23 09:27 Depression Screening Interpretation: Positive Depression Screening Follow-up: Existing condition and Declines treatment Thrive Assessment: Date of Thrive Assessment Date Thrive assessed 11/04/23 11/04/23 09:27 Currently or been in a relationship where the following occur: no concerns reported Const General: no acute distress, alert and awake Orientation/consciousness: patient oriented x3 HENMT Head: Yes normocephalic and Yes atraumatic Ears: external ears normal, TM's normal bilaterally and EAC's normal General nose exam: No nasal discharge present Face and sinus: Yes normal facial exam and Yes sinuses nontender Teeth and gingiva: dentition normal Throat: Yes posterior oropharynx normal and Yes tonsils normal (no TP congestion) Eyes Eyelids: Yes eyelids normal Conjunctivae: conjunctivae normal Pupils: Equal, round and reactive pupils present EOM: EOMs intact bilaterally Neck Neck: Yes no lymphadenopathy and Yes supple Thyroid: Thyroid normal Resp Auscultation: clear to auscultation bilaterally, no rales and no wheezes Cardio Rate: regular rate Rhythm: regular rhythm Heart sounds: no murmurs GI Palpation (GI): Soft to palpation, nontender and No hepatosplenomegaly present Auscultation: normal bowel sounds General: Yes no CVA tenderness Back/Spine/Pelvis Back: no CVA tenderness Thoracic/Lumbar Spine: straight leg raise negative bilaterally and lumbar spinal tenderness Skin Lesions: no lesions Rashes: no rashes Neuro General: patient oriented x3, moves all extremities, no focal motor deficits and CN's II-XI intact bilaterally Cranial nerves: Yes Equal, round and reactive pupils present Cognition (Neuro): normal cognition Gait exam (Neuro): Normal gait present Extrem General: Yes no clubbing, cyanosis or edema Right lower extremity: knee Details: tenderness (mild) and crepitus; no swelling Left lower extremity: knee Details: tenderness (mild) and crepitus; no swelling Assessment and Plan Assessment & Plan (1) Annual physical exam: Code(s): Z00.00 - Encounter for general adult medical examination without abnormal findings Plan: Check labs She is up-to-date with her cervical cancer screening and gynecology exam She is scheduled for her initial mammogram in December 2023 (2) Pure hypercholesterolemia: Code(s): E78.00 - Pure hypercholesterolemia, unspecified Plan: Reinforced low cholesterol diet Advised that her cholesterol levels were elevated when last checked a year ago, with her total cholesterol at 226 mg/dl and LDL cholesterol at 161 mg/dl Will recheck her fasting lipids BRIT for follow up (3) Vitamin D deficiency: Code(s): E55.9 - Vitamin D deficiency, unspecified Plan: Patient is also advised that her Vitamin D level was very low when checked last year (7.1) and she should start taking Vitamin D3 2000 units QD to supplement this (4) Asthma: Code(s): J45.909 - Unspecified asthma, uncomplicated Qualifiers: Asthma severity: mild Asthma persistence: intermittent Asthma complication type: uncomplicated Qualified Code(s): J45.20 - Mild intermittent asthma, uncomplicated Plan: Stable/controlled She has Albuterol HFA to use at 1 to 2 inhalations Q 6 hours PRN but states that she has not needed to use this often lately (5) Lumbar disc herniation: Code(s): M51.26 - Other intervertebral disc displacement, lumbar region Plan: S/P L5-S1 microdiscectomy with Dr. Duncan guerrero in February 2023, with significant relief of her left lumbar radicular pain and symptoms Reinforced activity and weight-lifting restrictions to avoid aggravating her low back pain (6) Left leg pain: Code(s): M79.605 - Pain in left leg Plan: Will send patient for some labs BRIT for further evaluation Will also send her for EMG and NCV for further evaluation of her left leg symptoms (7) Bilateral knee pain: Code(s): M25.561 - Pain in right knee; M25.562 - Pain in left knee Qualifiers: Chronicity: unspecified Qualified Code(s): M25.561 - Pain in right knee; M25.562 - Pain in left knee Plan: Will send patient for x-rays of both knees for further evaluation (8) Overweight (BMI 25.0-29.9): Code(s): E66.3 - Overweight Plan: Reinforced diet/exercise as tolerated/lose weight Plan Follow up in 6 months Orders: Orders Comprehensive [place]erson. Panel Fast Today E78.00 - Pure hypercholesterolemia, unspecified, Z00.00 - Encounter for general adult medical examination without abnormal findings TSH reflex Free T4 Today E78.00 - Pure hypercholesterolemia, unspecified, Z00.00 - Encounter for general adult medical examination without abnormal findings UA CC w/rflx Micro + Cult Today R30.0 - Dysuria, Z00.00 - Encounter for general adult medical examination without abnormal findings Vitamin B12 and Folate Today E53.8 - Deficiency of other specified B group vitamins, Z00.00 - Encounter for general adult medical examination without abnormal findings Vitamin D 25-OH Total Today E55.9 - Vitamin D deficiency, unspecified, Z00.00 - Encounter for general adult medical examination without abnormal findings Erythrocyte Sedimentation Rate Today M79.605 - Pain in left leg NE nerve conduction velocity Today M79.605 - Pain in left leg, Z87.39 - Personal history of other diseases of the musculoskeletal system and connective tissue XR knee standing BI Today M25.561 - Pain in right knee, M25.562 - Pain in left knee Complete Blood Count Auto Diff Today D64.9 - Anemia, unspecified, Z00.00 - Encounter for general adult medical examination without abnormal findings Lipid Panel Today E78.00 - Pure hypercholesterolemia, unspecified, Z00.00 - Encounter for general adult medical examination without abnormal findings NE electromyogram (EMG) Today M79.605 - Pain in left leg, Z87.39 - Personal history of other diseases of the musculoskeletal system and connective tissue Medications: New cholecalciferol (vitamin D3) 50 mcg PO DAILY 90 days 90 caps 3RF E55.9 - Vitamin D deficiency, unspecified Coding Level of Care Code Est Pt Prev Care 40-64y(99479) Diagnoses Annual physical exam Z00.00 Pure hypercholesterolemia E78.00 Vitamin D deficiency E55.9 Mild intermittent asthma without complication J45.20 Asthma severity: mild Asthma persistence: intermittent Asthma complication type: uncomplicated Lumbar disc herniation M51.26 Left leg pain M79.605 Pain in both knees, unspecified chronicity M25.561; M25.562 Chronicity: unspecified Overweight (BMI 25.0-29.9) E66.3
== END 2023-11-04 09:54 | disposition home or self-care (01) ==
PROVIDERS: PCP Internal Medicine; Visit Provider Internal Medicine
DX: Z00.00 Encounter for general adult medical examination without abnormal findings (principal); E78.00 Pure hypercholesterolemia, unspecified; E55.9 Vitamin D deficiency, unspecified; J45.20 Mild intermittent asthma, uncomplicated; M51.26 Other intervertebral disc displacement, lumbar region; M79.605 Pain in left leg; M25.561 Pain in right knee; M25.562 Pain in left knee; E66.3 Overweight; Z87.891 Personal history of nicotine dependence
CPT/HCPCS: 99396

== ENCOUNTER 2023-11-04 09:58 | Outpatient (REF) | payer OTHER, SELFPAY ==
--- NOTE | ~2023-11-04 | XR_ITS ---
EXAMINATION: XR KNEE AP STANDING CLINICAL INFORMATION: Pain in right knee Patient states bilateral knee pain, more pain in left knee COMPARISON: None available. TECHNIQUE: AP bilateral standing view of the knees was obtained. FINDINGS: No fracture.. Alignment is anatomic. Joint spaces are maintained. No abnormal soft tissue calcification. XR/XR knee standing BI IMPRESSION: No bony abnormality.
[2023-11-04 10:33] LABS: MANUAL DIFF FLAG NO
[2023-11-04 10:45] LABS: Basophils Absolute Auto 0.1 X10*3/uL (0.0-0.2); Basophils Percent Auto 0.9 % (0-2); Eosinophils Absolute Auto 0.2 X10*3/uL (0.0-0.4); Eosinophils Percent Auto 2.9 % (0-4); Hemoglobin 12.8 g/dl (12.0-16.0); Imm Gran Abs Auto 0.01 X10*3/uL (0.00-0.03); Imm Gran Pct Auto 0.2 % (0.0-0.4); Lymphocytes Absolute Auto 2.7 X10*3/uL (1.2-4.9); Lymphocytes Percent Auto 45.3 % (20-40); Mean Corpuscular HGB Conc 33.7 g/dl (31.0-35.0); Mean Platelet Volume 9.4 fL (9.4-12.3); Monocytes Absolute Auto 0.5 X10*3/uL (0.1-1.2); Monocytes Percent Auto 8.2 % (2-11); Neutrophils Absolute Auto 2.5 x10*3/uL (2.0-8.3); Neutrophils Percent Auto 42.5 % (45-73); Platelet Count 303 X10*3/uL (160-400); Red Blood Count 4.13 X10*6/uL (4.20-5.50); Red Cell Distribution Width 12.9 % (11.0-16.0); White Blood Count 5.9 X10*3/uL (4.8-10.8)
[2023-11-04 11:24] LABS: Alanine Aminotransferase 12 U/L (0-31); Albumin Level 4.2 g/dL (3.5-5.0); Alkaline Phosphatase 64 U/L (39-117); Anion Gap 12 (12-20); Aspartate Amino Transferase 15 U/L (5-31); Bilirubin Total 0.4 mg/dL (0.0-1.0); Blood Urea Nitrogen 9 mg/dL (9-16); Calcium 9.5 mg/dL (8.4-10.2); Carbon Dioxide 26 mmol/L (22-29); Chloride 108 mmol/L (96-108); Cholesterol 208 mg/dL (<200); Estimated Glomerular Filt Rate > 60; Glucose Fasting 93 mg/dL (60-99); HDL Cholesterol 48 mg/dL (>40); LDL Cholesterol Calculated 142 mg/dL (<100); Potassium 3.7 mmol/L (3.3-5.1); Sodium 142 mmol/L (135-145); Total Protein 6.9 g/dL (6.5-8.0); Triglycerides 92 mg/dL (<150)
[2023-11-04 11:30] LABS: Erythrocyte Sedimentation Rate 5 MM/HR (0-20)
[2023-11-04 11:40] LABS: TSH reflex Free T4 0.72 uIU/mL (0.32-4.0); Vitamin D 25-OH Total 8.2 ng/mL (>30)
[2023-11-04 11:49] LABS: Vitamin B12 244 pg/mL (200-900)
[2023-11-04 13:19] LABS: Appearance Urine Clear; Color Urine Yellow; Glucose Urine UA Negative (Negative); Leukocyte Esterase Urine Negative (Negative); Nitrite Urine Negative (Negative); PH 6.5 (5.0-9.0); UMIC TRIGGER UACC YES; Urine Blood Moderate (2+) (Negative); Urine Ketones Negative (Negative); Urine Protein Negative (Neg-Trace)
[2023-11-04 13:24] LABS: Bacteria Urine None Seen (None Seen); Hyaline Casts Urine 0-2 /LPF (0-2); Squamous Epithelial Cell Urine 0-2 /HPF (0-2); WBC Urine 0-5 /HPF (0-5)
== END 2023-11-04 09:59 | disposition home or self-care (01) ==
LOC: HO.LAB 09:58
PROVIDERS: PCP Internal Medicine; Visit Provider Internal Medicine
DX: Z00.00 Encounter for general adult medical examination without abnormal findings (principal); E78.00 Pure hypercholesterolemia, unspecified; D64.9 Anemia, unspecified; E53.8 Deficiency of other specified B group vitamins; E55.9 Vitamin D deficiency, unspecified; M79.605 Pain in left leg; M25.561 Pain in right knee; M25.562 Pain in left knee; R39.9 Unspecified symptoms and signs involving the genitourinary system; R30.0 Dysuria; Z87.39 Personal history of other diseases of the musculoskeletal system and connective tissue
CPT/HCPCS: 36415; 73565; 80053; 80061; 81001; 81003; 82306; 82607; 82746; 84443; 85025; 85652

== ENCOUNTER 2023-12-11 10:42 | Outpatient (REF) | payer OTHER, SELFPAY ==
--- NOTE | ~2023-12-11 | MM_ITS ---
EXAMINATION: MM SCREENING DIGITAL BREAST TOMOSYNTHESIS, BILATERAL CLINICAL INFORMATION: Screening. Asymptomatic. COMPARISON: Mammography: This is a baseline mammogram. TECHNIQUE: Digital breast tomosynthesis is performed in both the craniocaudal and mediolateral oblique views along with computer-aided detection (CAD). Synthesized 2D images are generated from the tomosynthesis. FINDINGS: There are scattered areas of fibroglandular density (ACR BI-RADS breast composition Category b). There are no significant masses, abnormal calcifications, or other abnormalities. MM/MM tomosynthesis screening BI IMPRESSION: No mammographic evidence of malignancy. ASSESSMENT: BI-RADS BI-RADS 1 - Negative RECOMMENDATION: Routine annual mammography screening. 1 year F/U This examination should not preclude the clinical evaluation of a suspicious palpable abnormality. This patient's information was entered into a reminder system with a target due date for their next mammogram.
== END 2023-12-11 10:43 | disposition home or self-care (01) ==
LOC: HO.MAMMO 10:42
PROVIDERS: PCP Internal Medicine; Visit Provider Advanced Practice Midwife
DX: Z12.31 Encounter for screening mammogram for malignant neoplasm of breast (principal)
CPT/HCPCS: 77063; 77067

== ENCOUNTER → 2023-12-11 10:45 | Outpatient (BNV) | payer OTHER, SELFPAY | PROVIDERS: PCP Internal Medicine; Visit Provider Radiology Diagnostic Radiology | DX: Z12.31 Encounter for screening mammogram for malignant neoplasm of breast (principal) | CPT/HCPCS: 77063; 77067 ==

== ENCOUNTER 2023-12-11 12:30 | Outpatient (REF) | payer OTHER, SELFPAY ==
--- NOTE | 2023-12-11 12:35 | EMG_ITS ---
Chief complaint: Left lateral leg pain, denies numbness S/P L5-S1 microdiscectomy with Dr. Song back in February 2023 Reason for referral: Evaluate for radiculopathy Referred by: Dr. Hickman Procedure done: Left lower extremity NCS/EMG Precautions and/or limitations: Past lumbar surgery The limb temperature was monitored continuously and remained between 32-36 degrees C during the performance of the NCS. Nerve Conduction Studies Anti Sensory Summary Table ?Stim Site NR Onset (ms) Norm Onset (ms) Peak (ms) Norm Peak (ms) O-P Amp (?V) Norm O-P Amp Site1 Site2 Delta-0 (ms) Dist (cm) Benitez (m/s) Norm Benitez (m/s) Left Sural Anti Sensory (Lat Mall) Calf ? 2.6 3.2 <4.0 17.6 >5.0 Calf Lat Mall 2.6 14.0 54 Motor Summary Table ?Stim Site NR Onset (ms) Norm Onset (ms) O-P Amp (mV) Norm O-P Amp iAmp (mV) Amp (1st) (%) Site1 Site2 Delta-0 (ms) Dist (cm) Benitez (m/s) Norm Benitez (m/s) Left Peroneal Motor (Ext Dig Brev) Ankle ? 3.8 <4.0 2.9 >2.5 3.4 100.0 Ankle Ext Dig Brev 3.8 0.0 B Fib ? 9.5 2.7 3.2 93.1 B Fib Ankle 5.7 29.0 51 >40 Poplt ? 10.3 2.6 3.1 89.7 Poplt B Fib 0.8 4.5 56 >40 Left Tibial Motor (Abd Montoya Brev) Ankle ? 3.8 <5 15.3 >2.5 21.5 100.0 Ankle Abd Montoya Brev 3.8 0.0 Knee ? 10.2 8.9 12.5 58.2 Knee Ankle 6.4 36.0 56 >40 EMG ?Side Muscle Nerve Root Ins Act Fibs Psw Amp Dur Poly Recrt Int Pat Comment Left AbdHallucis MedPlantar S1-2 Nml Nml Nml Nml Nml 0 Nml Complete Left AntTibialis Dp Br Peron L4-5 Nml Nml Nml Nml Nml 0 Nml Complete Left PostTibialis Tibial L5, S1 Nml Nml Nml Nml Nml 0 Nml Complete Left MedGastroc Tibial S1-2 Nml Nml Nml Nml Nml 0 Nml Complete Left VastusMed Femoral L2-4 Nml Nml Nml Nml Nml 0 Nml Complete FINDINGS: All motor and sensory nerves tested showed normal latencies, amplitudes and conduction velocities. Concentric needle EMG was performed in selected muscles of the left lower extremity. Study did not reveal signs of electric abnormalities as shown in the table below. IMPRESSION: 1. This is a normal study. 2. There is no electrodiagnostic evidence for peroneal neuropathy, tibial neuropathy, lumbosacral plexopathy, lumbar radiculopathy, or peripheral neuropathy. Thank you for your kind referral. Keyla Patel MD, KOFI Board Certified, [place] [employer] and [employer] (ABPMR) Board Certified, [place] [employer] Electrodiagnostic Medicine (ABEM) CODIN [id number] MTDD
== END 2023-12-11 12:31 | disposition home or self-care (01) ==
LOC: HO.NEURO 12:30
PROVIDERS: PCP Internal Medicine; Visit Provider Internal Medicine
DX: M79.605 Pain in left leg (principal); Z87.39 Personal history of other diseases of the musculoskeletal system and connective tissue
CPT/HCPCS: 95886; 95908

== ENCOUNTER → 2023-12-11 12:35 | Outpatient (BNV) | payer OTHER, SELFPAY | PROVIDERS: PCP Internal Medicine; Visit Provider Physical Medicine & Rehabilitation | DX: M79.605 Pain in left leg (principal) | CPT/HCPCS: 95886; 95908 ==

== ENCOUNTER 2024-05-04 10:19 | Outpatient (AMB) | payer OTHER, SELFPAY ==
[2024-05-04 10:22] VITALS: BP 138/86; PULSE 59; O2SAT 97; BMI 30.3
--- NOTE | 2024-05-04 10:22 | A.OFFPC_ITS ---
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 Allergies oxycodone [Percocet] Allergy (Severe, Verified 05/04/24 11:08) anaphylaxis, rash Penicillins [PENICILLINS] Allergy (Intermediate, Verified 05/04/24 11:08) SOB HIVES rash Medication List - Last Reconciled 05/04/24 by Alessio Hickman MD albuterol sulfate 90 mcg/actuation 2 puffs inhalation Q4-6H PRN cholecalciferol (vitamin D3) 50 mcg PO DAILY 90 days Tobacco use date assessed: 05/04/24 Dental Screening Dental Screen Date: 05/04/24 Did you have a dental visit in the last 12 months?: Yes Did you have a dental problem in the last 6 months where you did not have access to dental care?: No Was dental information given to patient?: Patient has dentist HPI 6m f/u left leg pain, asthma, IBS HPI Details Patient comes in today for her follow up visit States that she feels okay She denies any headaches or dizziness Denies any SOB States that she is still experiencing on and off sharp pains on the left side of her chest but thinks that these are mostly due to her anxiety States that she still has a lot of anxiety and has been trying to get into the [facility] in [place] for counseling/therapy as that is where her son is currently going for his psychiatric care but feels that they keep stalling her and is taking a long time getting back to her with an appointment States that she does not need a referral at this time Recalls getting a stress test done a few years ago that came out normal - advised that her stress testing was done back in 2016 No nausea/vomiting, no abdominal pain No change in bowel habits noted [facility] Medical History (Updated 05/04/24 @ 12:41 by Alessio Hickman MD) Vitamin D deficiency Pure hypercholesterolemia Overweight (BMI 25.0-29.9) Irritable bowel syndrome (IBS) Anxiety Asthma Surgical History Hx of discectomy History of tubal ligation History of section Family History Father CVD (cardiovascular disease) Depression Myocardial infarction Mother Myocardial infarction Depression Hypertension CVD (cardiovascular disease) Maternal Grandmother Lung cancer Brother In good health Son In good health Daughter In good health Social History Housing: Apartment 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 1. Little interest or pleasure in doing things: several days 2. Feeling down, depressed, or hopeless: several days 3. Trouble falling or staying asleep, or sleeping too much: not at all 4. Feeling tired or having little energy: several days 5. Poor appetite or overeating: not at all 6. Feeling bad about yourself - or that you are a failure or have let yourself or your family down: not at all 7. Trouble concentrating on things, such as reading the newspaper or watching television: not at all 8. Moving or speaking so slowly that other people could have noticed. Or the opp osite - being so fidgety or restless that you have been moving around a lot more than usual: not at all 9. Thoughts that you would be better off or of hurting yourself in some way: not at all Total score: 3 Depression Screening Interpretation: Positive Depression Screening Follow-up: Existing condition, Community Mental Health Worker F/U and Declines treatment Depression Screening Done: Yes [id number] - PHQ-9 Billing: Yes Source: Developed by Drs. Thai Phan, Krista Arambula, Elver Bose and colleagues, with an educational radha from [email or web address]. Thrive Questionnaire Date Thrive assessed: 11/04/23 I am a: Patient What is your living situation today?: I have a steady place to live Within the past 12 months, did the food you bought not last and you didn't have the money to get more?: Never true Within the past 12 months, did you worry whether your food would run out before you got money to buy more?: Never true Do you have trouble paying for medicines?: No Do you have trouble getting transportation to medical appointments?: No Do you have trouble paying your heating and electricity bill?: No Do you have trouble taking care of your child, family member or friend?: No Do you have trouble with day-to-day activities such as bathing, preparing meals, shopping, managing finances, etc.?: No Are you currently unemployed and looking for a job?: No Are you interested in more education?: No Please select the resources that you would like help with: None THRIVE Score: 0 AUDIT C Alcohol Use Questionnaire (AUDIT-C) 1. How often do you have a drink containing alcohol?: Monthly or less 2. How many drinks containing alcohol do you have on a typical day when you are drinking?: 1 or 2 3. How often do you have six or more drinks on one occasion?: Never Total Score: 1 Score Reviewed/Action Taken: Yes GINGER-7 AMB Questionnaire GINGER-7 Date GINGER - 7 assessed: 11/04/23 Feeling nervous, anxious, or on edge: 1 = Several days Not being able to stop or control worryin = Several days Worrying too much about different things: 1 = Several days Trouble relaxin = Several days Being so restless that it is hard to sit still: 1 = Several days Becoming easily annoyed or irritable: 1 = Several days Feeling afraid as if something awful might happen: 1 = Several days Total GINGER-7 score (0-4 normal; 5-9 mild; 10-14 moderate; 15-21 severe): 7 Source: Developed by Krista Lira, Elver Bose and colleagues, with an educational radha from [employer] Review of Systems Const Denies chills, Denies fatigue, Denies fever(s) and Denies headache(s) ENT Denies dysphagia, Denies dizziness, Denies otalgia, Denies headache(s), Denies neck pain, Denies odynophagia and Denies sore throat Card Reports chest pain (recurrent sharp pains over the left side of her chest), Denies rapid heart rate, Denies irregular heart rhythm, Denies palpitations and Denies dyspnea Resp Denies chest congestion, Denies cough, Denies dyspnea and Denies wheezing GI Denies abdominal pain, Denies constipation, Denies dysphagia, Denies heartburn, Denies diarrhea, Denies nausea, Denies odynophagia and Denies vomiting Denies urinary frequency, Denies dysuria and Denies urinary incontinence Musc Reports back pain (over the lower back (chronic) but has been manageable lately), Reports arthralgias (both knees), Denies neck pain and Denies tingling Skin/Breast Denies rash Neuro Denies dizziness, Denies headache(s), Denies tingling and Denies paresthesias Psych Reports anxiety and Denies depression Endo Denies fatigue and Denies palpitations Gideon/Lymph Denies easy bruising Aller/Immun Denies wheezing Physical exam (Primary Care) Vital Signs: Last Vital Signs Pulse 59 05/04/24 10:22 BP 138/86 05/04/24 10:22 Pulse Ox 97 05/04/24 10:22 Oxygen Delivery Method Room Air 05/04/24 10:22 BMI result Body Mass Index 30.3 Tobacco/Smoking Status: Tobacco use Status Tobacco use date assessed 05/04/24 05/04/24 10:29 Patient Tobacco Use Status Former Tobacco user 05/04/24 10:23 Tobacco use type Cigarette 05/04/24 10:23 e-Cigarette/Vaping Use Never Used 05/04/24 10:23 PHQ-9: PHQ-9 Score PHQ-9: Total score 3 05/04/24 10:29 Depression Screening Interpretation: Positive Depression Screening Follow-up: Existing condition, Community Mental Health Worker F/U and Declines treatment Thrive Assessment: Date of Thrive Assessment Date Thrive assessed 11/04/23 05/04/24 10:23 Const General: no acute distress and alert HENMT Ears: TM's normal bilaterally and EAC's normal Throat: Yes posterior oropharynx normal and Yes tonsils normal (no TP congestion) Neck Neck: Yes no lymphadenopathy and Yes supple Thyroid: Thyroid normal Resp Auscultation: clear to auscultation bilaterally, no rales and no wheezes Cardio Rate: regular rate Rhythm: regular rhythm Heart sounds: no murmurs GI Palpation (GI): Soft to palpation and nontender Auscultation: normal bowel sounds General: Yes no CVA tenderness Back/Spine/Pelvis Back: no CVA tenderness Thoracic/Lumbar Spine: lumbar spinal tenderness Skin Rashes: no rashes Extrem General: Yes no clubbing, cyanosis or edema Right lower extremity: knee Details: tenderness (mild) and crepitus; no swelling Left lower extremity: knee Details: tenderness (mild) and crepitus; no swelling Assessment and Plan Assessment & Plan (1) Chest pain: Code(s): R07.9 - Chest pain, unspecified Qualifiers: Chest pain type: unspecified Qualified Code(s): R07.9 - Chest pain, unspecified Plan: As she's had (+) Hx of hyperlipidemia in the past, will send her for repeat stress testing for further evaluation to help definitively r/o cardiac etiology for her recurrent chest pains, especially since she still has high cholesterol levels at present (2) Pure hypercholesterolemia: Code(s): E78.00 - Pure hypercholesterolemia, unspecified Plan: Reinforced low cholesterol diet Advised that her cholesterol levels were still elevated when last checked in October 2023, with her total cholesterol at 208 mg/dl and LDL cholesterol at 142 mg/dl, although these are much lower than they were last year Will recheck her fasting lipids and labs in 6 months for follow up (3) Vitamin D deficiency: Code(s): E55.9 - Vitamin D deficiency, unspecified Plan: Continue Vitamin D3 2000 units QD (4) Asthma: Code(s): J45.909 - Unspecified asthma, uncomplicated Qualifiers: Asthma severity: mild Asthma persistence: intermittent Asthma complication type: uncomplicated Qualified Code(s): J45.20 - Mild intermittent asthma, uncomplicated Plan: Stable/controlled She has Albuterol HFA to use at 1 to 2 inhalations Q 6 hours PRN but states that she has not needed to use this often (5) Lumbar disc herniation: Code(s): M51.26 - Other intervertebral disc displacement, lumbar region Plan: S/P L5-S1 microdiscectomy with Dr. Song back in February 2023, with significant relief of her left lumbar radicular pain and symptoms Reinforced activity and weight-lifting restrictions to avoid aggravating her low back pain (6) Overweight (BMI 25.0-29.9): Code(s): E66.3 - Overweight Plan: Reinforced diet/exercise as tolerated/lose weight Plan To return in November 2024 for her next annual physical examination Patient is reminded to get her follow up labs done BEFORE she comes in for her annual PE early next year Orders: Orders 2 Comprehensive Gill. Panel Fast 11/04/24 E78.00 - Pure hypercholesterolemia, unspecified, Z00.00 - Encounter for general adult medical examination without abnormal findings TSH reflex Free T4 11/04/24 E78.00 - Pure hypercholesterolemia, unspecified, Z00.00 - Encounter for general adult medical examination without abnormal findings CA stress test Today R07.9 - Chest pain, unspecified Complete Blood Count Auto Diff 11/04/24 D64.9 - Anemia, unspecified, Z00.00 - Encounter for general adult medical examination without abnormal findings Lipid Panel 11/04/24 E78.00 - Pure hypercholesterolemia, unspecified, Z00.00 - Encounter for general adult medical examination without abnormal findings UA CC w/rflx Micro + Cult 11/04/24 R30.0 - Dysuria, Z00.00 - Encounter for general adult medical examination without abnormal findings Vitamin D 25-OH Total 11/04/24 E55.9 - Vitamin D deficiency, unspecified, Z00.00 - Encounter for general adult medical examination without abnormal findings Coding Level of Care Code Est Pt Level 4 (54987) Diagnoses Chest pain, unspecified type R07.9 Chest pain type: unspecified Pure hypercholesterolemia E78.00 Vitamin D deficiency E55.9 Mild intermittent asthma without complication J45.20 Asthma severity: mild Asthma persistence: intermittent Asthma complication type: uncomplicated Lumbar disc herniation M51.26 Overweight (BMI 25.0-29.9) E66.3
== END 2024-05-04 11:18 | disposition home or self-care (01) ==
PROVIDERS: PCP Internal Medicine; Visit Provider Internal Medicine
DX: R07.9 Chest pain, unspecified (principal); E78.00 Pure hypercholesterolemia, unspecified; E55.9 Vitamin D deficiency, unspecified; J45.20 Mild intermittent asthma, uncomplicated; M51.26 Other intervertebral disc displacement, lumbar region
CPT/HCPCS: 99214

== ENCOUNTER 2025-04-10 10:20 | Outpatient (REF) | payer OTHER, SELFPAY ==
--- NOTE | ~2025-04-10 | MM_ITS ---
EXAMINATION: MM SCREENING DIGITAL BREAST TOMOSYNTHESIS, BILATERAL CLINICAL INFORMATION: Screening. Asymptomatic. COMPARISON: Mammography: Comparison is made with available priors TECHNIQUE: Digital breast mammography with tomosynthesis is performed in both the craniocaudal and mediolateral oblique views along with computer-aided detection (CAD). FINDINGS: The breasts are heterogeneously dense, which may obscure small masses (ACR BI-RADS breast composition Category c). Left: Focal asymmetry upper outer breast posterior depth. No suspicious calcifications or other abnormal findings. Right: There are no significant masses, abnormal calcifications, or other abnormalities. MM/MM tomosynthesis screening BI IMPRESSION: Additional imaging is recommended ASSESSMENT: BI-RADS BI-RADS 0 - Incomplete: Needs additional Imaging. RECOMMENDATION: 1. Additional views of the left breast. 2. Targeted ultrasound if warranted after review of the additional views. 3. Radiology department staff will contact the patient for additional imaging. Additional Imaging required This examination should not preclude the clinical evaluation of a suspicious palpable abnormality. This patient's information was entered into a reminder system with a target due date for their next mammogram. Electronically signed by: Kaylyn Byrnes DO 04/18/2025 05:10 PM EDT
--- OUTSIDE RECORDS SUMMARY | 2025-04-10 11:11 | XMS_ITS | Clinical Summary ---
Author Organization [employer] Address [address] [place] [address] Care Team Providers Care Site Head Name Role Phone Unavailable Primary Care Provider Unavailabl e Allergies Active Allergy Reactions Criticality Noted Date Comments Oxycodone 09/29/2019 Penicillin G 09/29/2019 Medications acetaminophen (Tylenol) 500 MG tablet Take 1 tablet (500 mg) by mouth every 6 (six) hours if needed for mild pain for up to 20 doses. 20 tablet 02/08/2024 Active ibuprofen 600 MG tablet Take 1 tablet (600 mg) by mouth every 6 (six) hours if needed for mild pain for up to 20 doses. 20 tablet 02/08/2024 Active Active Problems Problem Noted Date Diagnosed Date Retained dental root 02/08/2024 Dental abscess 10/23/2023 Impacted tooth 10/23/2023 Social History Tobacco Use Types Packs/Day Years Used Date Smoking Tobacco: Never Smokeless Tobacco: Never Tobacco Cessation:Counseling Given: Not Answered Alcohol Use Standard Drinks/Week Comments Never 0 (1 standard drink = 0.6 oz pur e alcohol) Comments Unknown Sex and Gender Information Value Date Recorded Sex Assigned at Female 08/04/2022 10:14 AM EDT Legal Sex Female 10:14 AM EDT Gender Identity Female 08/04/2022 10:14 AM EDT Sexual Orientation Straight 08/04/2022 10 :14 AM EDT Last Filed Vital Signs Vital Sign Reading Time Taken Comments Blood Pressure 128/74 10/23/2023 8:07 AM EST Pulse - - Temperature - - Respiratory Rate - - Oxygen Saturation - - Inhaled Oxygen Concentration - - Weight - - Height - - Body Mass Index - - Plan of Treatment Health Maintenance Due Date Last Done Comments Depression Screening 1983 HIV Screening 1983 SDOH Screening 1983 Disability Screening 1983 Alcohol/Substance Use Screening 1995 Family Planning (PISQ) 1998 Hepatitis C Screening 2001 Hepatitis B Vaccines (1 of 3 - 19+ 3-dose series) 2002 Pap Smear 2004 Dental Prophylaxis 03/21/2012 09/19/2011 Dental Oral Exam 05/06/2012 11/05/2011 Cervical Cancer Screening 2013 HPV/Cotest 2013 DTaP/Tdap/Td Vaccines (2 - Tdap) 10/02/2022 10/02/2012 Mammogram 2023 Dental X-Ray: Bitewings 04/09/2024 04/08/2023, 09/19 COVID-19 Vaccine (2 - season) 2024 02/27/2021 Tobacco Screening 10/23/2024 10/23/2023 Influenza Vaccine (#1) 2025 , 07/28/2018, 07/02/2016, Additional history exists Dental X-Ray: Full Mouth 05/21/2027 05/20/2024, 09/04 Zoster Vaccines (1 of 2) 2033 RSV Patients and Patients Aged 60 years or older (1 - 1-dose 75+ series) 2058 HIB Vaccines Aged Out No longer eligi ble based on patient's age to complete this topic HPV Vaccines Aged Out No longer eligi ble based on patient's age to complete this topic Hepatitis A Vaccines Aged Out No long er eligible based on patient's age to complete this topic IPV Vaccines Aged Out No longer eligi ble based on patient's age to complete this topic Meningococcal B Vaccine Aged Out No l onger eligible based on patient's age to complete this topic Meningococcal Vaccine Aged Out No bob chase eligible based on patient's age to complete this topic Pneumococcal Vaccine: Pediatrics (0 to 5 Years) and At-Risk Patients (6 to 49) Years Aged Out No longer eligible based on patient's age to complete this topic RSV under 20 months Aged Out No longe r eligible based on patient's age to complete this topic Rotavirus Vaccines Aged Out No longer eligible based on patient's age to complete this topic Procedures Procedure Name Priority Date/Time Associated Diagnosis Comments PANORAMIC RADIOGRAPHIC IMAGE Routine 05/20/2024 11:30 AM EDT Rampant dental caries BITEWING - SINGLE RADIOGRAPHIC IMAGE Routine 04/08/2023 11:30 AM EDT Dental abscess COMPREHENSIVE ORAL EVALUATION - NEW OR ESTABLISHED PATIENT Routine 11/05/2011 12:00 AM EST PROPHYLAXIS - ADULT Routine 09/19/2011 1 2:00 AM EST from Last 3 Months or Most Recently Relevant to Health Maintenance Insurance [address] [place] [id number] [facility] MEDICAID STAND ADULT
== END 2025-04-10 10:21 | disposition home or self-care (01) ==
LOC: HO.MAMMO 10:20
PROVIDERS: PCP Internal Medicine; Visit Provider Internal Medicine
DX: Z12.31 Encounter for screening mammogram for malignant neoplasm of breast (principal)
CPT/HCPCS: 77063; 77067

== ENCOUNTER → 2025-04-10 10:30 | Outpatient (BNV) | payer OTHER, SELFPAY | PROVIDERS: PCP Internal Medicine; Visit Provider Internal Medicine | DX: Z12.31 Encounter for screening mammogram for malignant neoplasm of breast (principal) | CPT/HCPCS: 77063; 77067 ==

== ENCOUNTER 2025-07-05 15:03 | Emergency (ER) | payer OTHER, SELFPAY ==
--- NOTE | ~2025-07-05 | US_ITS ---
EXAMINATION: US TRIPLEX LOWER EXTREMITY, LEFT CLINICAL INFORMATION: Left lower extremity pain COMPARISON: None available. TECHNIQUE: Color-flow triplex imaging with spectral analysis and compression Doppler were performed on the left lower extremity. FINDINGS: Respiratory variation, normal compression and augmented flow are noted throughout the left lower extremity. The visualized common femoral vein, superficial femoral vein, profunda femoral vein, popliteal vein and midcalf peroneal and posterior tibial venous segments show no evidence of deep venous thrombosis. US/US venous duplex LE LT IMPRESSION: No evidence of deep venous thrombosis involving the left lower extremity. Electronically signed by: Mando Dawkins MD 07/05/2025 05:09 PM EDT
--- NOTE | ~2025-07-05 | XR_ITS ---
EXAMINATION: XR CHEST CLINICAL INFORMATION: CP, SOB COMPARISON: 10/28/2022 TECHNIQUE: 2 views of the chest were obtained. FINDINGS: The cardiac, hilar, and mediastinal contours are normal. The lungs are clear bilaterally. There is no pneumothorax or pleural effusion. There is no focal osseous or soft tissue abnormality. XR/XR chest 2V IMPRESSION: Normal chest. Electronically signed by: Jonathan Champion MD 07/05/2025 04:09 PM EDT
--- NOTE | 2025-07-05 15:05 | ECG_ITS ---
Test Reason : CHEST PAIN Blood Pressure : */* mmHG Vent. Rate : 79 BPM Atrial Rate : 79 BPM P-R Int : 144 ms QRS Dur : 84 ms QT Int : 362 ms P-R-T Axes : 73 71 50 degrees QTcB Int : 415 ms Normal sinus rhythm with sinus arrhythmia Normal ECG When compared with ECG of 29-Jan-2023 12:39, No significant change was found Referred By: Carol Jay Electronically Signed By: CHAITANYA WEBSTER
[2025-07-05 15:33] VITALS: BP 169/115; PULSE 90; RESP 14; TEMP 36.6; O2SAT 96; BMI 24.2
--- NOTE | 2025-07-05 15:34 | ED_ITS ---
HPI - Chest Pain General Chief Complaint: Upper Respiratory Symptoms Stated Complaint: chest pain, SOB, L leg pain Time Seen by Provider: 07/05/25 20:12 Source: patient Mode of arrival: ambulatory Limitations: no limitations History of Present Illness ED Provider: Dr. Osorio HPI narrative: 39-year-old female presented hospital today for evaluation of chest pain coughing shortness of breath and body aches. Patient is also endorsing calf pain on the left side. Patient stated that her son and daughter are both sick. She is taking some Motrin and Tylenol at home without any alleviation therefore she presents to the ER for further evaluation. Related Data Previous Rx's ?Medication ?Instructions ?Recorded albuterol sulfate 90 mcg/actuation 2 puff inhalation Q 4-6H PRN 04/17/21 aerosol inhaler shortness of breath or wheez ing #6.7 grams cholecalciferol (vitamin D3) 50 50 mcg PO DAILY 90 day s #90 caps 03/22/25 mcg (2,000 unit) capsule naproxen 500 mg tablet 500 mg PO BID PRN pain 30 da ys #60 06/23/25 tabs benzonatate 200 mg capsule 200 mg PO TID PRN cough 7 d ays #20 07/05/25 caps Allergies Allergy/AdvReac Type Severity Reaction Status Date / Time oxycodone (Percocet) Allergy Severe anaphylaxis, Verified 07/05/25 15:35 rash Penicillins (PENICILLINS) Allergy Intermediate SOB HIVES Verified 07/05/25 15:35 rash Review of Systems 2 Review of Systems: Pertinent review of systems as mentioned in HPI. All other system otherwise negative. [facility] Past Medical History [facility] Narrative: Medical history as mentioned in HPI Medical History (Updated 07/05/25 @ 22:28 by Donna Osorio DO) Vitamin D deficiency Pure hypercholesterolemia Overweight (BMI 25.0-29.9) Irritable bowel syndrome (IBS) Anxiety Asthma Surgical History Hx of discectomy History of tubal ligation History of section Family History Family History Father CVD (cardiovascular disease) Depression Myocardial infarction Mother Myocardial infarction Depression Hypertension CVD (cardiovascular disease) Maternal Grandmother Lung cancer Brother In good health Son In good health Daughter In good health Social History Social History Housing: Apartment 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 other at home: Yes (8+10 year old, mom will help post-op) Do you presently have visiting nurse or other home services: No Alcohol intake: never Patient Tobacco Use Status: Former Tobacco user Tobacco use type: Cigarette Cigarettes Per Day: 5 Years Smoked: 17 Smoked in Last 30 Days: No e-Cigarette/Vaping Use: Never Used Second Hand Smoke Exposure: Yes Use of substances other than those prescribed or required for medical reasons: No Advance Directives: No Advance Directives Information Provided: No Do you have a plan to hurt others: No Plan Patient : No service: No Current occupational status: employed and student Cognitive needs: No Hearing needs: No Vision needs: No Physical Exam 2 Exam: Exam: General: Pleasant, appears to be warm to touch Head: Normacephalic, atraumatic ENT: oral mucosa moist, neck supple, no tracheal deviation Cardiovascular: regular rate, regular rhythm, no murmurs, rubbing, gallops Respiratory: CTAB, no wheeze, rales, rhonchi Gastrointestinal: Soft, non distended, non tender, non guarding Extremities: Left calf tenderness Neurological: Awake and alert, no facial droop noted Skin: Warm and dry Psychiatric: Appropriate mood and thoughts Vital Signs: Vital Signs: Last Vital Signs Temp 98.0 F 07/05/25 22:10 Pulse 87 07/05/25 22:10 Resp 15 07/05/25 22:10 BP 145/93 H 07/05/25 22:10 Pulse Ox 95 07/05/25 22:10 O2 Del Method Room Air 07/05/25 22:10 BMI result Body Mass Index 24.2 Course Course Course Narrative: This is an RME: Additional HPI, ROS, PE not included below will be deferred to primary provider. RME assessment and note performed by: Carol Jay PA-C This is a [id number], with a hx of asthma, who presents to the ER with a complaint of SOB, chest pain, cough. Patient also reporting some left calf pain. Recently was at [facility] with her child who is sick. No recent travel, surgery, or hospitalizations. Further ER evaluation needed. Plan: Labs, EKG, CXR, viral swabs Medications Administered Discontinued Medications Generic Name Dose Route Start Last Admin Trade Name Vesna PRN Reason Stop Dose Admin Acetaminophen 975 mg 07/05/25 20:38 07/05/25 20:54 Acetaminophen 325 Mg Tablet PO 07/05/25 20:39 975 mg ONCE ONE Administration Albuterol/Ipratropium 3 ml 07/05/25 20:40 07/05/25 20:58 Albuterol/Iprat 2.5/0.5mg 3 Ml Ampul.Neb INHALE 07/05/25 20:41 3 ml ONCE ONE Administration Sodium Chloride 1,000 mls @ 999 mls/hr 07/05/25 20:45 07/05/25 22:21 Ns IV 07/05/25 21:45 Infused .Q1H1M JAN Infusion Ketorolac Tromethamine 15 mg 07/05/25 20:38 07/05/25 20:55 Ketorolac Tromethamine 15 Mg/Ml Vial IVPUSH 07/05/25 20:39 15 mg ONCE ONE Administration Medical Decision Making Medical Decision Making [facility] Narrative: 39-year-old female presented hospital today for evaluation of coughing shortness of breath body aches. I suspect patient likely has a viral infection. Patient x-ray is negative. Patient COVID and flu is negative. Patient ultrasound of the left left calf did not show any signs of clot or DVT. Patient's chemistries unremarkable. CBC did not show any sign of leukocytosis. We will plan to give patient some IV fluid IV Toradol. We will plan to give patient some p.o. Tylenol as well. We will plan to treat patient symptomatically. Patient is likely has body aches from a viral infection. On reassessment patient states she is feeling better at this time. We will plan to discharge patient. Encouraged conservative treatment for her viral infection she agrees and understands this plan. Differential Diagnosis Differential Diagnoses: The differential diagnosis associated with the presentation includes Upper respiratory infection, viral infection, dehydration, fever Lab Data [facility] Lab Attestation statement: I reviewed the patient's lab results. 07/05/25 16:08 07/05/25 16:08 Labs: Lab Results 07/05/25 Range/Units 16:08 WBC 9.0 (4.8-10.8) X10*3/uL RBC 4.24 (4.20-5.50) X10*6/uL Hgb 13.3 (12.0-16.0) g/dl Hct 37.7 (37.0-47.0) % MCV 88.9 (80.0-98.0) fL MCH 31.4 (27.0-33.0) pg MCHC 35.3 H (31.0-35.0) g/dl RDW 12.5 (11.0-16.0) % Plt Count 302 (160-400) X10*3/uL MPV 9.2 L (9.4-12.3) fL Immature Gran % (Auto) 0.2 (0.0-0.4) % Neut % (Auto) 80.2 H (45-73) % Lymph % (Auto) 12.3 L (20-40) % [place] % (Auto) 4.4 (2-11) % Eos % (Auto) 2.3 (0-4) % Baso % (Auto) 0.6 (0-2) % Lymph # (Auto) 1.1 L (1.2-4.9) X10*3/uL [place] # (Auto) 0.4 (0.1-1.2) X10*3/uL Eos # (Auto) 0.2 (0.0-0.4) X10*3/uL Baso # (Auto) 0.1 (0.0-0.2) X10*3/uL Abs Immat Gran (auto) 0.02 (0.00-0.03) X10*3/uL Absolute Neuts (auto) 7.2 (2.0-8.3) x10*3/uL Absolute Nucleated RBC 0.000 (0.0-0.012) X10*3/uL Nucleated RBC % (auto) 0.0 (0.0-0.2) /100WBC Sodium 140 (135-145) mmol/L Potassium 3.6 (3.3-5.1) mmol/L Chloride 108 (96-108) mmol/L Carbon Dioxide 24 (22-29) mmol/L Anion Gap 12 (12-20) BUN 6 L (9-16) mg/dL Creatinine 0.57 (0.5-1.4) mg/dL Estim Creat Clear Calc 106.3 Estimated GFR > 60 Random Glucose 93 (60-115) mg/dL Calcium 9.0 (8.4-10.2) mg/dL Magnesium 1.9 (1.6-2.6) mg/dL Total Bilirubin 0.7 (0.0-1.0) mg/dL Direct Bilirubin 0.2 (0.0-0.5) mg/dL AST 22 (5-31) U/L ALT 16 (0-31) U/L Alkaline Phosphatase 83 (39-117) U/L Troponin I High Sens < 2.7 (<3.5-17.0) ng/L Total Protein 7.3 (6.5-8.0) g/dL Albumin 4.6 (3.5-5.0) g/dL Lipase 12 (8-78) U/L Beta HCG, Quant < 2 mIU/mL COVID-19 (YADIRA) Negative (Negative) COVID-19 Clin Com See Note Influenza Type A (DENNIS) Negative (Negative) Influenza Type B (DENNIS) Negative (Negative) Influenza A & B Note See Note Independent Interpretation I performed an independent interpretation of an: Plain X-Ray Radiology Impression Discussion of test interpretation with radiology: I have reviewed the radiologist's reading. Discharge Plan Discharge Clinical Impression: Viral respiratory illness Patient Disposition: Home, Self-Care Prescriptions: New benzonatate 200 mg capsule 200 mg PO TID PRN (Reason: cough) 7 Days Qty: 20 0RF No Action cholecalciferol (vitamin D3) 50 mcg (2,000 unit) capsule 50 mcg PO DAILY 90 Days Qty: 90 0RF naproxen 500 mg tablet 500 mg PO BID PRN (Reason: pain) 30 Days Qty: 60 0RF Rx Instructions: Take with food albuterol sulfate 90 mcg/actuation HFA aerosol inhaler 2 puff inhalation Q4-6H PRN (Reason: shortness of breath or wheezing) Qty: 6.7 0RF Stand Alone Forms: Work/School Release Discharge Date/Time: 07/05/25 22:38 Print Language: Burundian
[2025-07-05 16:18] LABS: MANUAL DIFF FLAG NO
[2025-07-05 16:28] LABS: Hematocrit 37.7 % (37.0-47.0); Hemoglobin 13.3 g/dl (12.0-16.0); Imm Gran Abs Auto 0.02 X10*3/uL (0.00-0.03); Imm Gran Pct Auto 0.2 % (0.0-0.4); Lymphocytes Absolute Auto 1.1 X10*3/uL (1.2-4.9); Mean Corpuscular HGB Conc 35.3 g/dl (31.0-35.0); Mean Corpuscular Hemoglobin 31.4 pg (27.0-33.0); Mean Corpuscular Volume 88.9 fL (80.0-98.0); NRBC Abs Auto 0.000 X10*3/uL (0.0-0.012); NRBC Pct Auto 0.0 /100WBC (0.0-0.2); Platelet Count 302 X10*3/uL (160-400); Red Blood Count 4.24 X10*6/uL (4.20-5.50); White Blood Count 9.0 X10*3/uL (4.8-10.8)
[2025-07-05 16:39] LABS: COVID-19 Test Negative (Negative); IDNOW Serial# 55D5AD1C; IDNOW Serial# 58CA691E; Influenza B2 Negative (Negative)
[2025-07-05 16:45] LABS: Alanine Aminotransferase 16 U/L (0-31); Albumin Level 4.6 g/dL (3.5-5.0); Alkaline Phosphatase 83 U/L (39-117); Anion Gap 12 (12-20); Aspartate Amino Transferase 22 U/L (5-31); Blood Urea Nitrogen 6 mg/dL (9-16); Calcium 9.0 mg/dL (8.4-10.2); Carbon Dioxide 24 mmol/L (22-29); Chloride 108 mmol/L (96-108); Creatinine Clr Calc Pharmacy 106.3; Estimated Glomerular Filt Rate > 60; Lipase 12 U/L (8-78); Magnesium 1.9 mg/dL (1.6-2.6); Potassium 3.6 mmol/L (3.3-5.1); Sodium 140 mmol/L (135-145); Total Protein 7.3 g/dL (6.5-8.0)
[2025-07-05 16:47] LABS: Troponin-I High Sensitivity < 2.7 ng/L (<3.5-17.0)
[2025-07-05 19:54] VITALS: BP 156/91; PULSE 68; RESP 18; TEMP 36.4; O2SAT 96
--- OUTSIDE RECORDS SUMMARY | 2025-07-05 20:13 | XMS_ITS | Clinical Summary ---
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 Name Role Phone Unavailable Primary Care Provider [...] Use Screening 1995 Family Planning (PISQ) 1998 HPV Vaccines (1 - 3-dose series) 1998 Hepatitis C Screening 2001 Hepatitis B Vaccines (1 of 3 - 19+ 3-dose series) 2002 Pap Smear 2004 Dental Prophylaxis 03/21/2012 09/19/2011 Dental Oral Exam 05/06/2012 11/05/2011 Cervical Cancer Screening 2013 HPV/Cotest 2013 DTaP/Tdap/Td Vaccines (2 - Tdap) 10/02/2022 10/02/2012 Mammogram 2023 Dental X-Ray: Bitewings 04/09/2024 04/08/2023, 09/19 Tobacco Screening 10/23/2024 10/23/2023 COVID-19 Vaccine (2 - season) 2025 02/27/2021 Influenza Vaccine (#1) 2025 , 07/28/2018, 07/02/2016, [...] Most Recently Relevant to Health Maintenance Insurance [address] [place] [id number] DENTAL-[facility] MEDICAID STAND ADULT
[2025-07-05] MEDS: Albuterol/Iprat 2.5/0.5MG 3 ML AMPUL.NEB INHALE (20:58)
[2025-07-05 20:59] VITALS: PULSE 66; RESP 11; O2SAT 96
--- NOTE | 2025-07-05 21:00 | PC.NURSE ---
Pt here w/ c/o uri sx's since last night assoc w/ myalgias, states son is sick too. CP reproducable, +cough non-productive.
[2025-07-05 22:10] VITALS: BP 145/93; PULSE 87; RESP 15; TEMP 36.7; O2SAT 95
== END 2025-07-05 22:38 | disposition home or self-care (01) ==
PROVIDERS: Physician Assistant Medical; Emergency Provider Student in an Organized Health Care Education/Training Program; PCP Internal Medicine
DX: B34.9 Viral infection, unspecified (principal); R05.9 Cough, unspecified; R07.9 Chest pain, unspecified; M79.605 Pain in left leg; Z03.818 Encounter for observation for suspected exposure to other biological agents ruled out; Z79.899 Other long term (current) drug therapy
CPT/HCPCS: 36415; 71046; 80048; 80076; 83690; 83735; 84484; 84702; 85025; 87502; 87635; 93005; 93971; 94640; 96361; 96374; 99285; J1885

== ENCOUNTER → 2025-07-05 15:05 | Outpatient (BNV) | payer OTHER, SELFPAY | PROVIDERS: Emergency Provider Student in an Organized Health Care Education/Training Program; PCP Internal Medicine; Visit Provider Internal Medicine | DX: R07.9 Chest pain, unspecified (principal) | CPT/HCPCS: 93010 ==

== ENCOUNTER → 2025-07-05 15:36 | Outpatient (BNV) | payer OTHER, SELFPAY | PROVIDERS: PCP Internal Medicine; Visit Provider Radiology Diagnostic Radiology | DX: R07.9 Chest pain, unspecified (principal); R06.02 Shortness of breath | CPT/HCPCS: 71046; 93971 ==

== ENCOUNTER 2025-07-14 12:21 | Outpatient (AMB) | payer OTHER, SELFPAY ==
--- NOTE | 2025-07-14 12:56 | A.SPINEOV_ITS ---
Intake Visit Reasons: mid back pain on right side Intake Note: Ms. Martines is here today c/o mid back pain on the right side. 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 She is an altogether new problem. About a month or more ago she started with pain along the right side of her subscapular area that has now radiated down along her arm into her hand, and has tingling and numbness of what she describes her whole hand. She has been doing patches, Tylenol, Motrin. These things are starting to get her stomach upset so she has been trying to take less of them. Her strength overall feels okay. She has not done any dedicated conservative treatment yet other than just waiting to see if it would go away but it only seems to be getting worse. 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 Her strength is full on exam, but she does have an absent right triceps reflex. We talked about getting an MRI, I told her I could submit for 1, but that most likely this would go away on its own usually 90% of the time. We also talked about the fact that usually insurance companies will require physical therapy before allowing the MRI, so if that happens we would need her to go through some conservative treatment 1st. If the MRI does get approved I will call her with the results. Total amount of time spent in this visit was 20 minutes in discussion of symptoms, ordering imaging and subsequent plan of care Jordan Song MD,PhD [facility] Orders: Orders MR cervical spine wo con Today M54.12 - Radiculopathy, cervical region Coding Level of Care Code Est Pt Level 3 (44827) Diagnoses Cervical radiculopathy M54.12
== END 2025-07-14 13:25 | disposition home or self-care (01) ==
LOC: HO.HNS 12:22
PROVIDERS: PCP Internal Medicine; Visit Provider Physician Assistant
DX: M54.12 Radiculopathy, cervical region (principal)
CPT/HCPCS: 99213

== ENCOUNTER → 2025-07-14 12:21 | Outpatient (BNVA) | payer OTHER, SELFPAY | PROVIDERS: PCP Internal Medicine; Visit Provider Physician Assistant | DX: M54.12 Radiculopathy, cervical region (principal) | CPT/HCPCS: 99212 ==